=== PATIENT | female | born 1950 | race Caucasian/White ===

== ENCOUNTER → 2016-09-29 | Outpatient (CLI) | payer BC ==
[~2016-09-29] MED LIST: ASCO500T16 PO; CHOL100027 PO; LEVO25TA PO; MAGN250T9 PO; calcium PO
== END | disposition home or self-care (01) ==
LOC: C.PAPS 12:01
PROVIDERS: ATTEND Obstetrics & Gynecology
DX: Z01.419 Encounter for gynecological examination (general) (routine) without abnormal findings (principal)

== ENCOUNTER → 2017-03-16 | Outpatient (CLI) | payer BC ==
--- NOTE | 2017-03-16 12:43 | MAMMOGRAPHY REPORT ---
BILATERAL DIGITAL SCREENING MAMMOGRAM WITH CAD: 03/16/2017 CLINICAL HISTORY: Routine screening. Patient has no complaints. TECHNIQUE: Bilateral CC and MLO views were obtained. Current study was also evaluated with a Compute r Aided Detection (CAD) system. COMPARISON: Comparison is made to exams dated: 03/15/2016 mammogram, 03/11/2015 mammogram, 02/03/2014 main mogram, 01/31/2013 mammogram, 02/03/2012 mammogram, and 01/31/2012 mammogram - [facility]. BREAST COMPOSITION: There are scattered areas of fibroglandular density in both breasts. FINDINGS: No suspicious mass, architectural distortion or cluster of microcalcifications is seen. IMPRESSION: ACR BI-RADS CATEGORY 1: NEGATIVE There is no mammographic evidence of malignancy. A 1 year screening mammogram is recommended. The pa tient will receive written notification of the results. Approximately 10% of breast cancers are not detected with mammography. A negative mammographic report should not delay biopsy if a clinically suggestive mass is present. Beth Cook M.D. ay/:03/16/2017 11:04:21 Podiatry Assistant: Nehal HOLT(R)(M)(BD), [facility] letter sent: Normal 1/2 BI-RADS Code: ACR BI-RADS Category 1: Negative
== END | disposition home or self-care (01) ==
LOC: C.MAMM 10:24
PROVIDERS: ATTEND Family Medicine
DX: Z12.31 Encounter for screening mammogram for malignant neoplasm of breast (principal)

== ENCOUNTER 2019-02-20 02:29 | Observation (INO) ==
[2019-02-20] MEDS ORDERED: MoRPHine SULFATE 4 MG/ML 1 ML CARP\\VIAL IV PRN ×2 (02:48→08:42)
[2019-02-20] MEDS ORDERED: SODIUM CHLORIDE 0.9% 1000ML 500 ML IV ONE (02:48)
[2019-02-20] MEDS ORDERED: ONDANSETRON INJ 2 MG/ML 2 ML VIAL IV STA (02:48)
[2019-02-20 03:14] LABS: Basophils # (auto) 0.03 K/uL (0-0.2); Basophils % (auto) 0.7 %; Eosinophils # (auto) 0.17 K/uL (0-0.5); Eosinophils % (auto) 3.8 %; Hematocrit (blood only) 35.9 % (37-47); Hemoglobin 12.2 g/dL (12.0-16.0); Immature Granulocytes # (auto) 0.02 K/uL (0.00-0.02); Immature Granulocytes % (auto) 0.5 %; Lymphocytes # (auto) 1.67 K/uL (1.2-3.4); Lymphocytes % (auto) 37.6 %; Mean Corpuscular Volume 95.5 fL (80-100); Mean Platelet Volume 9.7 fL (7.4-10.4); Monocytes # (auto) 0.54 K/uL (0.11-0.59); Monocytes % (auto) 12.2 %; Neutrophils # (auto) 2.01 K/uL (1.4-6.5); Neutrophils % (auto) 45.2 %; Platelet Count 192 K/uL (130-400); RDW Coefficient of Variation 14.8 % (11.5-14.5); RDW Standard Deviation 50.5 fL (36.4-46.3); Red Blood Count 3.76 M/uL (4.2-5.4); White Blood Count 4.44 K/uL (4.8-10.8)
[2019-02-20 03:33] LABS: Alanine Aminotransferase 13 U/L (12-78); Albumin Level 3.1 gm/dl (3.4-5.0); Aspartate Aminotransferase 17 U/L (15-37); BUN Creatinine Ratio 18.3 (10-20); Blood Urea Nitrogen 16 mg/dl (7-18); Carbon Dioxide 21 mmol/L (21-32); Chloride 110 mmol/L (98-107); Creatinine Clr Calc Pharmacy 37.7 ml/min; Est GFR (African American) 79.4; Est GFR (Non-African American) 68.5; Glucose 93 mg/dl (70-99); Magnesium 2.3 mg/dl (1.8-2.4); Partial Thromboplastin Time 27.2 Seconds (21.0-31.0); Potassium 3.4 mmol/L (3.5-5.1); Prothrombin Time 10.3 Seconds (9.0-12.0); Sodium 142 mmol/L (136-145)
[2019-02-20 03:38] LABS: Albumin Globulin Ratio 0.9 (0.9-2); Alkaline Phosphatase 74 U/L (45-117); Bilirubin,Total 0.5 mg/dl (0.2-1); Globulin 3.6 gm/dl (2.5-4.0); Total Protein 6.7 gm/dl (6.4-8.2); Troponin I < 0.015 ng/ml (0-0.045)
[2019-02-20] MEDS ORDERED: IOVERSOL 100ml IV PRN (04:01)
--- NOTE | 2019-02-20 06:29 | Emergency Department Note ---
History of Present Illness General Chief complaint: Abdominal Pain Stated complaint: ABD PAIN, CANCER Time Seen by Provider: 02/20/19 02:37 History of Present Illness Maximum Pain Intensity: 5 This is a 68-year-old female presenting to the emergency department for evaluation of vague abdominal pain that began about 1 hour prior to arrival. Patient has an extensive history of stage IV metastatic colon cancer. She last received chemotherapy 7 days ago, and has not had recent reaction, fevers, or chills. The patient has had chronic constipation in the past, and typically uses a stool softener. The patient feels like she has been using the bathroom as normal the past 2 days, but became concerned due to the severity of her abdominal discomfort. Most of the discomfort is in the upper abdomen. She is nauseated without vomiting. No reports of chest pain, chest tightness, or rhea rtness of breath. She rates her current discomfort with 5/10. Home Medications Home Medications Medication Instructions Recorded Confirmed Type ascorbic acid (vitamin C) 500 mg PO QDL 04/23/18 02/20/19 History cholecalciferol (vitamin D3) 1,000 unit PO QDL 04/23/18 02/20/19 History [Vitamin D3] levothyroxine 25 mcg PO QAM 04/23/18 02/20/19 History magnesium 250 mg PO BIDM 04/23/18 02/20/19 History tramadol 50 mg PO BID 04/23/18 02/20/19 History ondansetron HCl [Zofran] 8 mg PO BID PRN 05/20/18 02/20/19 History Avastin 1 dose IV . Q2 WEEKS 02/20/19 02/20/19 History calcium carbonate [Calcium 600] 600 mg PO BID 02/20/19 02/20/19 History fluorouracil 1 dose IV . Q 2 WEEKS 02/20/19 02/20/19 History leucovorin calcium 1 dose IV . Q2 WEEKS 02/20/19 02/20/19 History Allergies Allergy/AdvReac Type Severity Reaction Status Date / Time aspirin AdvReac Mild COUGHING Verified 02/20/19 06:14 WITH ASTHMA alendronate sodium AdvReac FLU LIKE Verified 02/20/19 06:14 SYMPTOMS Antifungal - Imidazole AdvReac SWELLING Verified 02/20/19 06:14 Sulfa (Sulfonamide AdvReac NAUSEA Verified 02/20/19 06:14 Antibiotics) Past Med/Surg History Medical History Colon cancer RECTOSIGMOID COLON Ureterolithiasis (Inactive) To [facility] ED 04/22 with flank pain Asthma Cancer COLON CANCER METS TO LUNG/LIVER Hx of renal calculi Hypothyroid MVP (mitral valve prolapse) MINOR Osteoporosis Pes cavus RT/LEFT FOOT Surgical History H/O colonoscopy History of tooth extraction Social History Preferred Language: Turkmen Communication Ability: Effective Visual Impairment: No Limitations Hearing Ability: Normal Box Stacker Required: No Beliefs That Will Affect Care: None Current Living Situation: Spouse Feels Safe at Home: Yes Smoking Status: Never smoker Second Hand Exposure: Yes ( A CHILD) ; Hx Alcohol Use: No Hx Substance Use: No Review of Systems A total of 10 systems reviewed and were otherwise negative Physical Exam Vital Signs Vital Signs - 24 hr 02/20/19 02:35 02/20/19 03:42 02/20/19 04:30 Temperature 36.4 C L Temperature Source Oral Sepsis Recent Fever Within 48 Hours No Sepsis New/Unexplained Change in Mental Status No Sepsis Action Taken by Nursing No Action Required Pulse Rate 102 H 68 Pulse Rate [Right Finger] 70 Pulse Rate from SpO2 Sensor 68 Respiratory Rate 18 18 19 Blood Pressure 121/82 Blood Pressure [Left Arm] 123/54 L Blood Pressure Mean 95 Blood Pressure Mean [Left Arm] 77 Pulse Oximetry 99 100 100 Oxygen Delivery Method Room Air Room Air 02/20/19 04:46 02/20/19 05:00 02/20/19 05:30 Temperature Temperature Source Sepsis Recent Fever Within 48 Hours Sepsis New/Unexplained Change in Mental Status Sepsis Action Taken by Nursing Pulse Rate 74 78 82 Pulse Rate [Right Finger] Pulse Rate from SpO2 Sensor 72 76 83 Respiratory Rate 19 20 20 Blood Pressure 146/63 H 121/61 Blood Pressure [Left Arm] Blood Pressure Mean 90 81 Blood Pressure Mean [Left Arm] Pulse Oximetry 100 99 100 Oxygen Delivery Method Room Air Room Air Room Air 02/20/19 06:00 Temperature Temperature Source Sepsis Recent Fever Within 48 Hours Sepsis New/Unexplained Change in Mental Status Sepsis Action Taken by Nursing Pulse Rate 85 Pulse Rate [Right Finger] Pulse Rate from SpO2 Sensor 85 Respiratory Rate 21 Blood Pressure 128/71 Blood Pressure [Left Arm] Blood Pressure Mean 90 Blood Pressure Mean [Left Arm] Pulse Oximetry 100 Oxygen Delivery Method VITALS: Vitals are noted on the nurse's note and reviewed by myself. Vital signs stable. GENERAL: Chronically ill-appearing female who is comfortable and cooperative. She is overall very pleasant. HEAD: Normocephalic atraumatic. MOUTH: Mucous membranes moist. Tonsils are not enlarged. Pharynx without erythema, blood, or exudate. Uvula midline. Airway patent. NECK: Supple without nuchal rigidity. No lymphadenopathy. No thyromegaly. Cervical spine is nontender. HEART: Regular rate and rhythm without murmurs gallops or rubs. LUNGS: Clear to auscultation bilaterally without wheezes, rales or rhonchi. No retractions or accessory muscle use. ABDOMEN: Positive normal bowel sounds x 4. Soft, nontender, without masses or organomegaly. No guarding or rebound tenderness. MUSCULOSKELETAL: No muscle atrophy, erythema, or edema noted. Full range of motion in all extremities. Course Administered Medications Ioversol (Optiray 320 100ml) 100 ml IV ONCE PRN PRN Reason: Interaction Checking Stop: 02/24/19 04:00 Last Admin: 02/20/19 04:04 Dose: 93 ml Documented by: [id number] Morphine Sulfate (Morphine Sulfate) 4 mg IV Q15M PRN PRN Reason: Pain Stop: 03/06/19 02:47 Last Admin: 02/20/19 03:18 Dose: 4 mg Documented by: [id number] Discontinued Medications Sodium Chloride (Nss 1000ml) 500 mls @ 999 mls/hr IV .Q31M ONE Stop: 02/20/19 03:18 Last Infusion: 02/20/19 03:48 Dose: 0 mls/hr Documented by: [id number] Admin: 02/20/19 03:17 Dose: 999 mls/hr Documented by: [id number] Ondansetron HCl (Zofran) 4 mg IV NOW STA Stop: 02/20/19 02:49 Last Admin: 02/20/19 03:17 Dose: 4 mg Documented by: [id number] Medical Decision Making Differential Diagnosis Differential diagnosis: Etiologies such as biliary colic, cholecystitis, hepatitis, pancreatitis, cardiac disease, pancreatitis, gastritis, peptic ulcer disease, appendicitis, cystitis, diverticulitis, mesenteric ischemia, inflammatory bowel disease, ileus, bowel obstruction, testicular/adnexal torsion, aortic pathology, shingles, as well as others were considered Laboratory Data Result diagrams: 02/20/19 03:06 02/20/19 03:06 Lab Results 02/20/19 02/20/19 02/20/19 Range/Units 03:06 03:06 03:06 WBC 4.44 L (4.8-10.8) K/uL RBC 3.76 L (4.2-5.4) M/uL Hgb 12.2 (12.0-16.0) g/dL Hct 35.9 L (37-47) % MCV 95.5 (80-100) fL MCH 32.4 (25-34) pg MCHC 34.0 (32-36) g/dL RDW Std Deviation 50.5 H (36.4-46.3) fL RDW Coeff of Michele 14.8 H (11.5-14.5) % Plt Count 192 (130-400) K/uL MPV 9.7 (7.4-10.4) fL Immature Gran % (Auto) 0.5 % Neut % (Auto) 45.2 % Lymph % (Auto) 37.6 % [place] % (Auto) 12.2 % Eos % (Auto) 3.8 % Baso % (Auto) 0.7 % Immature Gran # (Auto) 0.02 (0.00-0.02) K/uL Neut # (Auto) 2.01 (1.4-6.5) K/uL Lymph # (Auto) 1.67 (1.2-3.4) K/uL [place] # (Auto) 0.54 (0.11-0.59) K/uL Eos # (Auto) 0.17 (0-0.5) K/uL Baso # (Auto) 0.03 (0-0.2) K/uL PT 10.3 (9.0-12.0) Seconds INR 1.0 (0.9-1.1) APTT 27.2 (21.0-31.0) Seconds PTT Ratio 1.0 Sodium 142 (136-145) mmol/L Potassium 3.4 L (3.5-5.1) mmol/L Chloride 110 H (98-107) mmol/L Carbon Dioxide 21 (21-32) mmol/L Anion Gap 11.0 (3-11) BUN 16 (7-18) mg/dl Creatinine 0.88 (0.6-1.2) mg/dl Est Cr Clr Drug Dosing 37.7 ml/min Est GFR ( Amer) 79.4 Est GFR (Non-Af Amer) 68.5 BUN/Creatinine Ratio 18.3 (10-20) Glucose 93 (70-99) mg/dl Calcium 9.0 (8.5-10.1) mg/dl Magnesium 2.3 (1.8-2.4) mg/dl Total Bilirubin 0.5 (0.2-1) mg/dl AST 17 (15-37) U/L ALT 13 (12-78) U/L Alkaline Phosphatase 74 (45-117) U/L Troponin I < 0.015 (0-0.045) ng/ml Total Protein 6.7 (6.4-8.2) gm/dl Albumin 3.1 L (3.4-5.0) gm/dl Globulin 3.6 (2.5-4.0) gm/dl Albumin/Globulin Ratio 0.9 (0.9-2) Lipase 202 (73-393) U/L Imaging Data Radiologist's Impression: Preliminary Findings Only See Final Report For Complete Findings CT ABDOMEN & PELVIS With Contrast: Comparison: CT abdomen and pelvis 08/23/18 At least 10 new hypodense liver lesions, consistent with metastatic disease, measuring up to 1.7 cm. Stent in distal sigmoid colon, similar to prior. Stable 6 mm nodule in right lower lobe. New nearby micronodules in right lung base anteriorly. Scarring/atelectasis at lung bases. Mild periaortic lymphadenopathy is stable to slightly decreased in size from prior. Small pericardial effusion. Subcentimeter right renal cyst, stable from prior. MDM Narrative Physical exam and history were performed. Nursing notes, EMR, and Medication List were personally reviewed. Patient appears to have abdominal pain context of having stage IV metastatic colon cancer. On exam she appears chronically ill but does not have distinct reproducible tenderness. IV access was established and labs were obtained. I did elect to perform CT scan of her belly because of her symptoms. The patient was hydrated with normal saline and given IV morphine and IV Zofran. EKG was performed and showed atrial fibrillation at [address] elevation. I did review each of her EKGs that we have here in the department, roughly over the past 6 or 7 years, and I do not appreciate a previous EKG showing A. fib. The patient's blood work is as above and was reviewed she does not have a significantly elevated white blood cell count or gross anemia. No significant electrolyte imbalance is identified. Troponin x1 is negative. Lipase and transaminases are not diagnostic. CT scan does not show acute process per my and radiology interpretation. She appears to have worsening liver metastasis. On reevaluation the patient continues to appear much more comfortable. Her abdomen remains soft and not significantly tender. I did discuss the case with my attending physician, Dr. Roberts, and overall review of concern for the patient. She is experiencing vague abdominal discomfort, and appears to have new onset A. fib. Medically she will be difficult to manage due to her underlying cancer and chemotherapy. Due to the complexity of the patient's case, she was discussed with the on-call hospitalist, who agreed to evaluate her here in the department. Please see the hospitalist dictation for further patient course, plan, and disposition. The chart was completed utilizing [employer] Speech Voice Recognition Software. Grammatical errors, random word insertions, pronoun errors, and incomplete sentences are an occasional consequence of this system due to software limitations, ambient noise, and hardware issues. Any formal questions or concerns about the content, text, or information contained within the body of this dictation should be directly addressed to the provider for clarification. . Impression & Plan New onset a-fib, Abdominal pain Discharge Plan Visit Data Chief Complaint: Abdominal Pain Stated Complaint: ABD PAIN, CANCER ED Provider: Evelyne Roberts ED Midlevel Provider: Mauro Solorzano Discharge Problem: New onset a-fib, Abdominal pain Forms Stand Alone Forms: Call Back Authorization, My [facility] [employer] Prescriptions Prescriptions: No Action cholecalciferol (vitamin D3) [Vitamin D3] 1,000 unit Tablet 1,000 unit PO QDL RF: 0 ascorbic acid (vitamin C) 500 mg Capsule 500 mg PO QDL RF: 0 magnesium 250 mg Tablet 250 mg PO BIDM RF: 0 levothyroxine 25 mcg Capsule 25 mcg PO QAM RF: 0 tramadol 50 mg Tablet 50 mg PO BID RF: 0 calcium carbonate [Calcium 600] 600 mg calcium (1,500 mg) Tablet 600 mg PO BID RF: 0 Avastin 1 dose IV . Q2 WEEKS RF: 0 fluorouracil 1 dose IV . Q 2 WEEKS RF: 0 leucovorin calcium 1 dose IV . Q2 WEEKS RF: 0 ondansetron HCl [Zofran] 8 mg tablet 8 mg PO BID PRN (Reason: Nausea And Vomiting) RF: 0 Referrals Referrals: Weston Still MD [Primary Care Provider] - Discharge Problem: Abdominal pain Qualifiers: Abdominal location: epigastric Qualified Code(s): R10.13 - Epigastric pain
[2019-02-20 06:53] LABS: Appearance Urine Clear (Clear); Bilirubin Urine Negative (Negative); Blood Urine Negative (Negative); Color Urine Yellow; Glucose Urine UA Negative (Negative); Ketones Urine Negative (Negative); Leukocyte Esterase Urine Negative (Negative); Nitrite Urine Negative (Negative); Protein Urine Negative (Negative); Specific Gravity Urine > 1.045 (1.000-1.030); Urobilinogen Urine Negative (Negative); pH Urine >= 9.0 (4.5-7.5)
--- NOTE | 2019-02-20 07:06 | History and Physical Report ---
DATE OF ADMISSION: 02/20/2019 CHIEF COMPLAINT: Abdominal pain. HISTORY OF PRESENT ILLNESS: This is a 68-year-old female with past medical history significant for metastatic colon cancer, metastases to lungs and liver, on chemo, severe protein-calorie malnutrition, hypothyroidism, osteoporosis, history of PVCs, diastolic dysfunction, presents with abdominal pain. The patient woke up with abdominal pain, mild to moderate in severity, no radiation, it is in the upper part of the abdomen, got worried and came to the ER and got pain medication. Currently, pain is resolved. EKG showed AFib, which was new onset, rate is under control. The patient denies any nausea, vomiting. No diarrhea or constipation. Moved bowels yesterday. No blood in the stools or black stools. No burning micturition, no hematuria. No swelling in the legs. No rash. No chest pain, no shortness of breath, no cough, no fever, no chills, no headache, no blurred vision, no dizziness, no earache, no runny nose, no sore throat. Appetite is okay. Currently, resting comfortably and hemodynamically stable. ALLERGIES: ALENDRONATE, ASPIRIN, IMIDAZOLE, METRONIDAZOLE, SULFA ANTIBIOTICS. PAST MEDICAL HISTORY: As mentioned above. PAST SURGICAL HISTORY: Colonoscopy, cystoscopy, A-port insertion. MEDICATIONS: Currently, the patient is on levothyroxine 25 mcg daily, tramadol 50 mg p.o. t.i.d. p.r.n., Zofran 8 mg p.o. q. 8 hours p.r.n., vitamin D 1000 units p.o. daily, magnesium 250 mg b.i.d., vitamin C tablets daily, calcium 1 tablet daily. FAMILY HISTORY: Significant for: Father had stroke, hypertension, heart disorder. Sister has diabetes, hypertension and depression. SOCIAL HISTORY: . No smoking, no alcohol, no drug use. REVIEW OF SYMPTOMS: As per HPI. Rest of review of systems is negative. PHYSICAL EXAMINATION: GENERAL: The patient is thin and frail, not in acute distress. VITAL SIGNS: Temperature 36.4, pulse 85, respiratory rate 21, blood pressure 120/71, oxygen 100% on room air. HEENT: No pallor, no icterus. Pupils equal, round, and reactive to light. NECK: No JVD, no neck masses, no carotid bruits. CARDIOVASCULAR: S1, S2 heard, regular rate and rhythm. No murmur, no gallop. RESPIRATORY SYSTEM: Normal AP diameter. No accessory muscle use. No wheezing, no crackles. ABDOMEN: Soft, bowel sounds present, nontender. No distention. CENTRAL NERVOUS SYSTEM: Cranial nerves II-XII grossly nonfocal. EXTREMITIES: No edema, no erythema. LABORATORY DATA: WBC 4.4, hemoglobin 12.2, hematocrit 35.9, platelets 192. PT 10.9, INR 1, APTT 27.2. Sodium 142, potassium 3.4, chloride 110, bicarbonate 21, BUN 16, creatinine 0.8, serum glucose 93, calcium 9, magnesium 2.3, total bilirubin 0.5, AST 17, ALT 13, alkaline phosphatase 74, troponin I less than 0.015. Lipase 202. EKG shows AFib, rate of 18, no acute ST changes seen. CT of the abdomen and pelvis, unofficial report, progressing lung cancer. ASSESSMENT AND PLAN: This is a 68-year-old female who presents with abdominal pain. 1. Abdominal pain. Currently, pain resolved with the pain medication. The patient's CAT scan unofficial report showed progression of colon cancer. We will wait for the official report. Getting chemo as per hematology/oncology. Consult hematology/oncology. 2. Atrial fibrillation, new onset. rate under control. Currently asymptomatic. We will monitor on telemetry floor. Serial cardiac enzymes, echocardiogram. We will place on low-dose IV heparin and consult cardiology for anticoagulation recommendations. 3. Colon cancer, metastatic to liver and lungs. Management as per hematology/oncology. Follow with hematology/oncology. 4. Hypothyroidism. Continue Synthroid. 5. Severe protein-calorie malnutrition. Nutrition consult. 6. Hypokalemia. We will replace. 7. Deep vein thrombosis prophylaxis, starting on IV heparin. DISPOSITION: Admit to tele floor. Expect to discharge home and follow with family doctor. Level 1 full code. MTDD
--- NOTE | 2019-02-20 07:40 | CT Scan Report ---
CT abd pelvis IV con only CT DOSE: 240.66 mGy.cm HISTORY: Pain pain. Metastatic colon carcinoma. TECHNIQUE: Multiaxial CT images of the abdomen and pelvis were performed following the use of intrave nous contrast. A dose lowering technique was utilized adhering to the principles of ALARA. COMPARISON STUDY: 12/22/2018 FINDINGS: Chronic bibasilar interstitial/fibrotic changes both lung bases. Unchanging small nodular d ensity right lateral costophrenic angle. No new basilar interval findings. Hepatic metastatic disease is perhaps slightly progressive in terms of overall number and size of dep osits. Pancreas appears unremarkable. No evidence for gallbladder distention. Adenopathy previously described within the abdomen and pelvis is considered nonprogressive. A rectosi gmoid stent is again noted. There appears to be soft tissue nearly occluding the inferior aspect of t he 10th versus fecal material. Bladder is midline. Bowel pattern again is nonobstructive. Kidneys enh ance uniformly. IMPRESSION: 1. No major change compared to the prior study. 2. Probable hepatic metastatic disease stable to slightly increased in prominence. 3. Stable location of a rectosigmoid stent with fecal material and/or soft tissue at its inferior asp ect. This is unchanged. 4. Nonobstructive bowel pattern. The above report was generated using voice recognition software. It may contain grammatical, syntax or spelling errors. Electronically signed by: Weston Carvajal M.D. 02/20/2019 7:38 AM
[2019-02-20] MEDS ORDERED: POTASSIUM CHLORIDE 10 MEQ TABCR PO STA (08:41)
[2019-02-20] MEDS ORDERED: ONDANSETRON INJ 2 MG/ML 2 ML VIAL IV PRN (08:42)
[2019-02-20] MEDS ORDERED: MAGNESIUM OXIDE 400 MG TAB PO SCH (08:42)
[2019-02-20] MEDS ORDERED: HEPARIN SODIUM/DEXTROSE 25,000 UNITS/500 ML BAG IV SCH (08:42)
[2019-02-20] MEDS ORDERED: NITROGLYCERIN SL 0.4 MG/TAB TAB SL PRN (08:42)
[2019-02-20] MEDS ORDERED: SODIUM CHLORIDE 0.9% 1000ML 1,000 ML IV SCH (08:42)
[2019-02-20] MEDS ORDERED: POLYETHYLENE (MIRALAX) 17 GM PACK PO PRN (08:42)
[2019-02-20] MEDS ORDERED: ONDANSETRON 8 MG TABLET PO PRN (08:42)
[2019-02-20] MEDS ORDERED: ACETAMINOPHEN 325 MG TAB PO PRN (08:42)
[2019-02-20] MEDS ORDERED: TRAMADOL HCL 50 MG TABLET PO SCH (09:00)
[2019-02-20] MEDS: Heparin IV Low Dose *NO* Bolus IV SCH ×2 (09:47→09:48)
[2019-02-20] MEDS ORDERED: ASCORBIC ACID 500 MG TAB PO SCH (11:30)
--- NOTE | 2019-02-20 14:02 | Hospitalist Progress Note ---
Date of Service February 20, 2019 Assessment & Plan (1) Abdominal pain: Patient is a 68 yr female who presents with abdominal pain Abdominal Pain: Unclear etiology. Likely due to metastasis --CT ABD:No major change compared to the prior study.Probable hepatic metastatic disease stable to slightly increased in prominence. Stable location of a rectosigmoid stent with fecal material and/or soft tissue at its inferior aspect. This is unchanged. Nonobstructive bowel pattern --Abdominal pain resolved Denies any nausea, vomiting, constipation or diarrhea Eager to get discharged Premature atrial contractions Troponin X 2: Negative IV Heparin discontinued Asymptomatic Discussed with Cardiology Monitor electrolytes and replace as needed ECHO: Trivial Pericardial effusion. EF: 55-60% Hypokalemia: Likely due to poor oral intake Replace and monitor Colon cancer, metastatic to liver and lungs CT abd reviewed Currently On chemotherapy Follows with as outpatient Hypothyroidism Continue Levothyroxine Severe protein-calorie malnutrition Nutrition consult BMI:14.8 DVT Px: On heparin. Code Status Full Code DISPOSITION: Plan to discharge home today Subjective Patient is seen and examined at bedside States abdominal pain has resolved Denies any chest pain, shortness of breath, nausea, dizziness, constipation/diarrhea Family at bedside Offers no other complaints Has regular BMs Eager to get discharged Review of Systems Review of Systems: All systems reviewed & are unremarkable except as noted in HPI & below Physical Exam Physical Exam: Physical Exam: Vitals signs as noted above General Appearance:Thin, Frail, no apparent distress Head: normocephalic, Atraumatic Eyes: normal inspection, EOMI Neck: supple, Trachea midline Respiratory/Chest: Normal breath sounds, CTA Cardiovascular: S1, S2, No murmur Abdomen/GI:Soft, Non tender, Bowel sounds present Extremities/Musculoskelatal:normal inspection, no edema Neurologic/Psych:AAOX3, grossly no focal neurological deficits Skin: normal color, warm Results & Data Vital Signs (Past 12 Hours) Vital Signs Temp Pulse Pulse Resp BP BP Pulse Ox 02/20/19 11:08 36.6 C 82 18 139/83 99 02/20/19 08:42 02/20/19 08:23 36.5 C 85 16 148/62 H 96 02/20/19 07:57 100 H 20 156/61 H 02/20/19 06:42 85 24 141/65 H 98 02/20/19 06:30 83 21 98 02/20/19 06:00 85 21 128/71 100 02/20/19 05:30 82 20 100 02/20/19 05:00 78 20 121/61 99 02/20/19 04:46 74 19 146/63 H 100 02/20/19 04:30 68 19 100 02/20/19 03:42 70 18 123/54 L 100 02/20/19 02:35 36.4 C L 102 H 18 121/82 99 Pulse Ox 02/20/19 11:08 02/20/19 08:42 96 02/20/19 08:23 02/20/19 07:57 02/20/19 06:42 02/20/19 06:30 02/20/19 06:00 02/20/19 05:30 02/20/19 05:00 02/20/19 04:46 02/20/19 04:30 02/20/19 03:42 02/20/19 02:35 Laboratory Results Short CBC 02/20/19 Range/Units 03:06 WBC 4.44 L (4.8-10.8) K/uL Hgb 12.2 (12.0-16.0) g/dL Hct 35.9 L (37-47) % Plt Count 192 (130-400) K/uL BMP 02/20/19 03:06 Sodium 142 Potassium 3.4 L Chloride 110 H Carbon Dioxide 21 BUN 16 Creatinine 0.88 Glucose 93 Calcium 9.0 Cardiac Enzymes 02/20/19 02/20/19 Range/Units 03:06 08:50 Troponin I < 0.015 < 0.015 (0-0.045) ng/ml Liver Function 02/20/19 Range/Units 03:06 Total Bilirubin 0.5 (0.2-1) mg/dl AST 17 (15-37) U/L ALT 13 (12-78) U/L Alkaline Phosphatase 74 (45-117) U/L Albumin 3.1 L (3.4-5.0) gm/dl Urine 02/20/19 Range/Units 06:40 Urine Color Yellow Urine Appearance Clear (Clear) Urine pH >= 9.0 H (4.5-7.5) Ur Specific [place] > 1.045 H (1.000-1.030) Urine Protein Negative (Negative) Urine Glucose (UA) Negative (Negative) (1) Abdominal pain Abdominal location: epigastric Qualified Code(s): R10.13 - Epigastric pain
--- NOTE | 2019-02-20 14:06 | Discharge Summary ---
Date of Service February 20, 2019 Admission HPI Per Admitting Provider CHIEF COMPLAINT: Abdominal pain. HISTORY OF PRESENT ILLNESS: This is a 68-year-old female with past medical history significant for metastatic colon cancer, metastases to lungs and liver, on chemo, severe protein-calorie malnutrition, hypothyroidism, osteoporosis, history of PVCs, diastolic dysfunction, presents with abdominal pain. The patient woke up with abdominal pain, mild to moderate in severity, no radiation, it is in the upper part of the abdomen, got worried and came to the ER and got pain medication. Currently, pain is resolved. EKG showed AFib, which was new onset, rate is under control. The patient denies any nausea, vomiting. No diarrhea or constipation. Moved bowels yesterday. No blood in the stools or black stools. No burning micturition, no hematuria. No swelling in the legs. No rash. No chest pain, no shortness of breath, no cough, no fever, no chills, no headache, no blurred vision, no dizziness, no earache, no runny nose, no sore throat. Appetite is okay. Currently, resting comfortably and hemodynamically stable. Admission Exam Per Admitting Provider PHYSICAL EXAMINATION: GENERAL: The patient is thin and frail, not in acute distress. VITAL SIGNS: Temperature 36.4, pulse 85, respiratory rate 21, blood pressure 120/71, oxygen 100% on room air. HEENT: No pallor, no icterus. Pupils equal, round, and reactive to light. NECK: No JVD, no neck masses, no carotid bruits. CARDIOVASCULAR: S1, S2 heard, regular rate and rhythm. No murmur, no gallop. RESPIRATORY SYSTEM: Normal AP diameter. No accessory muscle use. No wheezing, no crackles. ABDOMEN: Soft, bowel sounds present, nontender. No distention. CENTRAL NERVOUS SYSTEM: Cranial nerves II-XII grossly nonfocal. EXTREMITIES: No edema, no erythema. Principal Diagnosis Discharge Information Discharge Diagnosis Abdominal pain Premature atrial contractions Hypokalemia Discharge Goals Decrease discomfort,Improve disease control, Improve function Discharge Activity Limitations Resume your previous activity Discharge Data Allergies Allergy/AdvReac Type Severity Reaction Status Date / Time aspirin AdvReac Mild COUGHING Verified 02/20/19 06:14 WITH ASTHMA alendronate sodium AdvReac FLU LIKE Verified 02/20/19 06:14 SYMPTOMS Antifungal - Imidazole AdvReac SWELLING Verified 02/20/19 06:14 Sulfa (Sulfonamide AdvReac NAUSEA Verified 02/20/19 06:14 Antibiotics) Consultations 02/20/19 05:46 ED Decision to Admit Stat 02/20/19 08:42 Consult Case Management - Discharge Planning Routine Procedures Performed CT ABD: 1. No major change compared to the prior study. 2. Probable hepatic metastatic disease stable to slightly increased in prominence. 3. Stable location of a rectosigmoid stent with fecal material and/or soft tissue at its inferior aspect. This is unchanged. 4. Nonobstructive bowel pattern. Ordered Studies 02/20/19 02:48 CT abd pelvis IV con only Urgent Hospital Course (1) Abdominal pain: Patient is a 68 yr female who presents with abdominal pain Abdominal Pain: Unclear etiology. Likely due to metastasis --CT ABD:No major change compared to the prior study.Probable hepatic metastatic disease stable to slightly increased in prominence. Stable location of a rectosigmoid stent with fecal material and/or soft tissue at its inferior aspect. This is unchanged. Nonobstructive bowel pattern --Abdominal pain resolved Denies any nausea, vomiting, constipation or diarrhea Eager to get discharged Premature atrial contractions Troponin X 2: Negative IV Heparin discontinued Asymptomatic Discussed with Cardiology Monitor electrolytes and replace as needed ECHO: Trivial Pericardial effusion. EF: 55-60% Hypokalemia: Likely due to poor oral intake Replace and monitor Colon cancer, metastatic to liver and lungs CT abd reviewed Currently On chemotherapy Follows with as outpatient Hypothyroidism Continue Levothyroxine Severe protein-calorie malnutrition Nutrition consult BMI:14.8 DVT Px: On heparin. Code Status Full Code DISPOSITION: Plan to discharge home today Total Time Total Time Spent Total Time Spent (In Minutes): 28 minutes Total Time Includes: Examination of the Patient, Discharge Planning, Medication Reconciliation, Communication With Other Providers and Other Discharge Plan Discharge Items Patient Disposition: Home - Self-Care Reason For Visit: ABD PAIN Discharge Diagnosis: Abdominal pain Premature atrial contractions Hypokalemia Discharge Goals: Decrease discomfort, Improve disease control and Improve fun ction Activity: Resume your previous activity Exercise/Sports: Gradually increase as tolerated Non-emergency contact: Primary Care Provider and Oncologist Call non-emergency contact if: you have any medication questions, your symptoms worsen, your pain is not controlled, your pain is worsening, your pain is unusual for you, your pain is concerning for you and you have a fever Follow-up/Referrals: Weston Still MD [Primary Care Provider] - Diet: Regular Addtl Provider Instructions: Follow-up with your primary care physician Dr. Still/ Stella Cronin PA-C on Feb 25, 2019 at 12:45pm Follow up with your Oncologist as scheduled Seek immediate medical attention if your symptoms reoccur or worsen Prescriptions: Continued cholecalciferol (vitamin D3) [Vitamin D3] 1,000 unit Tablet 1,000 unit PO QDL RF: 0 ascorbic acid (vitamin C) 500 mg Capsule 500 mg PO QDL RF: 0 magnesium 250 mg Tablet 250 mg PO BIDM RF: 0 levothyroxine 25 mcg Capsule 25 mcg PO QAM RF: 0 tramadol 50 mg Tablet 50 mg PO BID RF: 0 calcium carbonate [Calcium 600] 600 mg calcium (1,500 mg) Tablet 600 mg PO BID RF: 0 Avastin 1 dose IV . Q2 WEEKS RF: 0 fluorouracil 1 dose IV . Q 2 WEEKS RF: 0 leucovorin calcium 1 dose IV . Q2 WEEKS RF: 0 ondansetron HCl [Zofran] 8 mg tablet 8 mg PO BID PRN (Reason: Nausea And Vomiting) RF: 0 Stand-Alone Forms: Call Back Authorization, [facility] Discharge Orders: Discharge Order (Routine); Ordered 02/20/19 Ordered By: Fernando Nicolas Admission Data Admit Date/Time: 02/20/19 06:34 Attending Provider: Fernando Nicolas Admit Provider: Leandro Gaston Primary Care Provider: Weston Still Other Providers: Leandro Gaston Service: Telemetry Other Interventions: Discharge Summary Assessment (RN) Last Done: 02/20/19 14:13 Pending Studies at Discharge: No DC Date/Time DO NOT enter until pt leaves facility: 02/20/19 14:41
[2019-02-21] MEDS ORDERED: LEVOTHYROXINE SODIUM 25 MCG TABLET PO SCH (06:30)
== END 2019-02-20 14:41 | disposition home or self-care (01) ==
LOC: 2S 02:29 → ED 02:29 → 2S 07:57

== ENCOUNTER 2019-08-30 15:52 | Inpatient (IN) ==
[2019-08-30] MEDS ORDERED: SODIUM CHLORIDE 0.9% 1000ML 1,000 ML IV ONE (16:45)
[2019-08-30] MEDS ORDERED: ONDANSETRON INJ 2 MG/ML 2 ML VIAL IV STA ×2 (16:46→17:39)
[2019-08-30] MEDS ORDERED: MoRPHine SULFATE 4 MG/ML 1 ML CARP\\VIAL IV STA ×2 (16:48→18:26)
[2019-08-30 17:17] LABS: Hematocrit (blood only) 33.9 % (37-47); Hemoglobin 11.2 g/dL (12.0-16.0); Mean Corpuscular Hemoglobin 30.2 pg (25-34); Mean Corpuscular Volume 91.4 fL (80-100); Mean Platelet Volume 9.4 fL (7.4-10.4); Platelet Count 293 K/uL (130-400); RDW Standard Deviation 45.4 fL (36.4-46.3); Red Blood Count 3.71 M/uL (4.2-5.4); White Blood Count 6.25 K/uL (4.8-10.8)
[2019-08-30 17:29] LABS: Partial Thromboplastin Time 27.5 Seconds (21.0-31.0); Prothrombin Time 10.7 Seconds (9.0-12.0)
[2019-08-30 17:35] LABS: Albumin Level 2.8 gm/dl (3.4-5.0); BUN Creatinine Ratio 22.3 (10-20); Calcium 8.6 mg/dl (8.5-10.1); Creatinine Clr Calc Pharmacy 37.6 ml/min; Est GFR (African American) 77.7; Est GFR (Non-African American) 67.1; Magnesium 2.2 mg/dl (1.8-2.4); Potassium 3.4 mmol/L (3.5-5.1)
[2019-08-30 17:36] LABS: Influenza A virus by PCR Neg for Influ A (Neg); Influenza B virus by PCR Neg for Influ B (Neg)
[2019-08-30 17:37] LABS: Bilirubin Direct 0.2 mg/dl (0-0.2); Bilirubin,Total 0.7 mg/dl (0.2-1); Immature Granulocytes # (auto) 0.02 K/uL (0.00-0.02); Immature Granulocytes % (auto) 0.3 %; Lymphocytes # (auto) 0.22 K/uL (1.2-3.4); Lymphocytes % (auto) 3.5 %; Monocytes # (auto) 0.15 K/uL (0.11-0.59); Monocytes % (auto) 2.4 %; Neutrophils # (auto) 5.86 K/uL (1.4-6.5); Neutrophils % (auto) 93.8 %; Total Protein 6.7 gm/dl (6.4-8.2)
--- NOTE | 2019-08-30 18:27 | XRay Report ---
XR chest 1V portable HISTORY: Vomiting. COMPARISON: Chest 05/20/2018. FINDINGS: No pneumothorax. No pleural effusions. Calcified right paratracheal lymph nodes are again n oted. The heart is normal in size. No focal lung consolidations to suggest pneumonia. No evidence for pulmonary edema. Right subclavian Port-A-Cath terminates at the SVC. IMPRESSION: No significant change compared to the prior study. No acute process. ACT 112: Negative or not required by law. Electronically signed by: Schuyler Conrad M.D. 08/30/2019 6:26 PM
[2019-08-30] MEDS ORDERED: IOVERSOL 100ml IV PRN (18:29)
[2019-08-30 18:37] LABS: Appearance Urine Clear (Clear); Bacteria Urine Automated Negative (Negative); Bilirubin Urine Negative (Negative); Blood Urine Trace (Negative); Color Urine Yellow; Glucose Urine UA Negative (Negative); Ketones Urine Negative (Negative); Leukocyte Esterase Urine Negative (Negative); Nitrite Urine Negative (Negative); Protein Urine Negative (Negative); RBC Urine Automated 0-4 /hpf (0-4); Specific Gravity Urine 1.014 (1.000-1.030); Urobilinogen Urine Negative (Negative); pH Urine 6.5 (4.5-7.5)
[2019-08-30] MEDS: SODIUM CHLORIDE 0.9% 500 ML IV SCH ×2 (18:42→22:41)
--- NOTE | 2019-08-30 18:59 | CT Scan Report ---
ABDOMEN AND PELVIS CT WITH IV CONTRAST CT DOSE: 252.32 mGy.cm HISTORY: Acute vomiting with lower abdominal pain. History of colon cancer vomitting hx colon ca TECHNIQUE: Multiaxial CT images of the abdomen and pelvis were performed following the IV administrat ion of 94 cc of Optiray 320, A dose lowering technique was utilized adhering to the principles of AL EAN. COMPARISON STUDY: 02/20/2019 FINDINGS: Bibasilar subpleural reticulation suggests fibrosis intermixed with atelectasis. 5 mm solid nodule of the posterior basal segment left lower lobe, image 56 series 3 previously measured 3 mm on the study from 02/20/2019. Linear 7 mm nodular opacity on image 60 series 3 suggests scarring/atelectasis and i s unchanged. There are a few solid nodules of the lateral basal right lower lobe measuring up to 7 mm which have decreased in size from comparison. There is no pneumatosis or pneumoperitoneum identified . Trace pericardial effusion. Pectus excavatum. Trace perisplenic ascites. The spleen is otherwise unremarkable. Pancreatic duct measures the upper l imits of 3 mm. The pancreas is otherwise unremarkable. Adrenal glands are within normal limits. Mild to moderate gallbladder distention. Mild prominence of the intrahepatic and extrahepatic biliary tree without obstructing stone or lesion identified. Hepatic metastasis redemonstrated with several of th e lesions mildly increased in size from comparison. Patency of the hepatic and portal veins. Symmetri c enhancement of the kidneys. No obstructive uropathy. Moderate urinary bladder distention. Uterus an d adnexa are unremarkable. Moderate mixed plaque the abdominal aorta without aneurysm. Unremarkable I VC. Prominent periportal and retroperitoneal lymph nodes are again seen measuring up to 6 to 7 mm. No definite progressive adenopathy. Mild to moderate wall thickening of the distal esophagus. No small bowel obstruction. Debris-filled p atent stent of the sigmoid colon. Wall thickening with mild pericolonic stranding is again noted with in this distribution. Moderate to extensive fecal retention. There is mild wall thickening of the cec um, ascending colon and hepatic flexure with mild pericolonic stranding. The appendix is not definiti vely visualized. Soft tissues are unremarkable. Degenerative changes of the spine, pelvis and hips. N o acute fracture identified. There are no new suspicious bone lesions identified. Mild lumbar levosco liosis. IMPRESSION: 1. Debris-filled patent stent of the sigmoid colon. 2. Wall thickening of the cecum, ascending colon and hepatic flexure is suggestive of a nonspecific c olitis. 3. Trace abdominal pelvic ascites, likely reactive. 4. No bowel obstruction or pneumoperitoneum. 5. Moderate to extensive fecal retention. 6. Slightly increased size of several hepatic lesions suggestive of progressive hepatic metastasis. 7. 5 mm solid nodule the basal left lower lobe has slightly increased in size from comparison. Attent ion at follow-up recommended to exclude pulmonary metastasis. 8. Additional findings as above. Please refer to below summary of Fleischner criteria recommendations for follow-up of incidental CT n odules (Alison Linares, Guidelines for management of small pulmonary nodules detected on CT scans: A sta tement from the Fleischner Society, Radiology 237: [id number].) SOLID NODULES Solitary nodule size: <6 mm * Low risk patients: no follow-up needed * high risk patients: optional CT at 12 months Solitary nodule size: 6-8 mm * Low risk patients: follow-up at 6-12 months, then consider further follow-up at 18-24 months * high risk patients: initial follow-up CT at 6-12 months and then at 18-24 months if no change Solitary nodule size: >8 mm * either low or high risk patients - consider follow-up CT at 3 months, and/or CT-PET, and/or biopsy Multiple nodules size: <6 mm * Low risk patients: no routine follow-up * high risk patients: optional CT at 12 months Multiple nodules size: 6-8 mm * Low risk patients: follow-up at 3-6 months, then consider further follow-up at 18-24 months * high risk patients: follow-up at 3-6 months, then at 18-24 months if no change Multiple nodules size: >8 mm * Low risk patients: follow-up at 3-6 months, then consider further follow-up at 18-24 months * high risk patients: follow-up at 3-6 months, then at 18-24 months if no change Note: newly detected indeterminate nodule in persons 35 years of age or older. * Low risk patients: minimal or absent history of smoking and/or other known risk factors * high risk patients: history of smoking or of other known risk factors (e.g. first degree relative with lung cancer, or exposure to asbestos, radon, uranium) * if a nodule up to 8 mm is partly solid or is ground glass further follow-up is required after 24 m onths to exclude possible slow growing adenocarcinoma ([place]) SUBSOLID NODULES Solitary pure ground-glass nodule * nodule size <6 mm - no CT follow-up required * nodule size >=6 mm - follow-up CT at 6-12 months, then every 2 years until 5 years Solitary part-solid nodule * nodule size <6 mm - no CT follow-up required * nodule size >=6 mm - follow-up CT at 3-6 months. If unchanged, and solid component remains <6 mm, then annual follow-up for 5 years Multiple subsolid nodules * nodule size <6 mm - follow-up CT at 3-6 months, consider further follow-up at 2 and 4 years if sta ble * nodule size >=6 mm - follow-up CT at 3-6 months, subsequent management based on the most suspiciou s nodule(s) The above report was generated using voice recognition software. It may contain grammatical, syntax o r spelling errors. ACT 112: Negative or not required by law. The above report was generated using voice recognition software. It may contain grammatical, syntax o r spelling errors. Electronically signed by: Marcelo Tolliver M.D. 08/30/2019 6:58 PM
[2019-08-30] MEDS ORDERED: PIPERACILL/TAZOBAC CONSULT ACTIVE PRN (20:46)
[2019-08-30] MEDS ORDERED: PIPERACILLIN/TAZOBACTAM 4.5 GM/120 ML BAG IV ONE (20:46)
[2019-08-30] MEDS ORDERED: HYDROmorphone INJ 0.5 MG/0.5 ML SYR IV STA (21:10)
[2019-08-30] MEDS ORDERED: HYDROmorphone INJ 0.5 MG/0.5 ML SYR ONE (21:12)
[2019-08-30] MEDS ORDERED: HYOSCYAMINE SULFATE 0.375 MG TABCR PO PRN (22:24)
[2019-08-30] MEDS ORDERED: POLYETHYLENE (MIRALAX) 17 GM PACK PO PRN (22:24)
[2019-08-30] MEDS ORDERED: TRAMADOL HCL 50 MG TABLET PO PRN (22:24)
[2019-08-30] MEDS ORDERED: ONDANSETRON INJ 2 MG/ML 2 ML VIAL IV PRN (22:24)
[2019-08-30] MEDS: HYDROmorphone INJ 0.5 MG/0.5 ML SYR IV PRN (22:47)
--- NOTE | 2019-08-30 23:28 | Emergency Department Note ---
Entered by Mattie Santiago acting as a scribe for History of Present Illness General Chief complaint: Referred by Doctor Stated complaint: THROWING UP - ABD PAIN - HEADACHE Time Seen by Provider: 08/30/19 16:40 Source: patient History of Present Illness Onset (ago): hour(s) (several ) Location: abdomen Pain Consistency: + other (persistent ) Maximum Pain Intensity: 8 Quality: + other (nausea and vomiting ) Relieved By: not by medication (nausea medication ) Associated symptoms: + other (positive lower abdominal pain ); no fever/chills and no headaches Treatments prior to arrival: other (nausea medication ) The patient is a 69 year old female who presents to the Emergency Room with complaints of persistent nausea and vomiting that began this morning, several hours prior to arrival. The patient states that over the last few hours her vomit began to turn a bright green color. She states that she was given nausea medications in an IV by her Oncologist, but states that this did not relieve her symptoms. She reports that she has lower abdominal pain. The patient denies fevers and headache. The patient states that she is currently receiving chemotherapy treatments for colon cancer, stating that her most recent treatment was yesterday. The patient states that she has a stent in her colon. Home Medications Home Medications Medication Instructions Recorded Confirmed Type cholecalciferol (vitamin D3) 1,000 unit PO QDL 04/23/18 08/30/19 History [Vitamin D3] levothyroxine 25 mcg PO QAM 04/23/18 08/30/19 History tramadol 50 - 100 mg PO TID PRN 04/23/18 08/30/19 History ondansetron HCl [Zofran] 8 mg PO Q8H PRN 05/20/18 08/30/19 History calcium carbonate [Calcium 600] 600 mg PO BID 08/30/19 08/30/19 History hyoscyamine sulfate 0.375 mg PO Q12H PRN 08/30/19 08/30/19 History prochlorperazine maleate 10 mg PO Q6H PRN 08/30/19 08/30/19 History Allergies Allergy/AdvReac Type Severity Reaction Status Date / Time alendronate sodium Allergy Mild FLU LIKE Verified 08/30/19 18:05 SYMPTOMS Antifungal - Imidazole Allergy Mild SWELLING Verified 08/30/19 18:05 aspirin Allergy Mild COUGHING Verified 08/30/19 18:05 Sulfa (Sulfonamide AdvReac Mild NAUSEA Verified 08/30/19 18:05 Antibiotics) Past Med/Surg History Medical History Asthma no inhalers Cancer diagnosed 03/14/2018--COLON CANCER with METS TO LUNG/LIVER--currently receiving chemo Hx of renal calculi Hypothyroid MVP (mitral valve prolapse) MINOR Osteoporosis Pes cavus RT/LEFT FOOT Surgical History H/O colonoscopy last colonoscopy 03/14/18 had stent placed at tumor site History of tooth extraction History of vascular access device right chest wall History of wisdom tooth extraction Family History Sister Family history of diabetes mellitus Brother Family history of diabetes mellitus Other No family history of adverse response to anesthesia Social History Preferred Language: Guatemalan Communication Ability: Effective Visual Impairment: No Limitations Hearing Ability: Normal [employer] Digger Required: No Beliefs That Will Affect Care: None Current Living Situation: Spouse Other Information That Helps Us Care for You: No Feels Safe at Home: Yes Safety Concerns: Feels Safe At This Time Smoking Status: Never smoker Do You Dip or Chew Tobacco: No ; Second Hand Exposure: Yes ; Hx Alcohol Use: No Hx Substance Use: No Review of Systems See HPI for pertinent positives & negatives. and A total of 10 systems reviewed and were otherwise negative Physical Exam Vital Signs Vital Signs - 24 hr 08/30/19 16:00 08/30/19 17:03 08/30/19 17:15 Temperature 36.4 C L Temperature Source Oral Pulse Rate 87 79 78 Pulse Rate [Right Finger] Pulse Rate from SpO2 Sensor 79 80 Pulse Rhythm Regular Pulse Strength Normal Respiratory Rate 18 24 25 H Respiratory Effort / Characteristics Non-Labored Respiratory Depth Normal Respiratory Pattern Regular Blood Pressure 156/69 H 128/59 L Blood Pressure [Right Arm] Blood Pressure Mean 98 78 Blood Pressure Mean [Right Arm] Blood Pressure Position Sitting Pulse Oximetry 98 99 99 Oxygen Delivery Method Room Air Sepsis Recent Fever Within 48 Hours No Sepsis Action Taken by Nursing No Action Required 08/30/19 17:30 08/30/19 18:00 08/30/19 18:32 Temperature Temperature Source Pulse Rate 86 84 78 Pulse Rate [Right Finger] Pulse Rate from SpO2 Sensor 86 84 Pulse Rhythm Pulse Strength Respiratory Rate 25 H 23 25 H Respiratory Effort / Characteristics Respiratory Depth Respiratory Pattern Blood Pressure 167/65 H Blood Pressure [Right Arm] Blood Pressure Mean 100 Blood Pressure Mean [Right Arm] Blood Pressure Position Pulse Oximetry 99 100 Oxygen Delivery Method Sepsis Recent Fever Within 48 Hours Sepsis Action Taken by Nursing 08/30/19 18:41 08/30/19 19:00 08/30/19 19:30 Temperature Temperature Source Pulse Rate 96 H 90 84 Pulse Rate [Right Finger] Pulse Rate from SpO2 Sensor 92 H 85 Pulse Rhythm Pulse Strength Respiratory Rate 21 23 20 Respiratory Effort / Characteristics Respiratory Depth Respiratory Pattern Blood Pressure 181/74 H Blood Pressure [Right Arm] Blood Pressure Mean 103 Blood Pressure Mean [Right Arm] Blood Pressure Position Pulse Oximetry 98 99 Oxygen Delivery Method Sepsis Recent Fever Within 48 Hours Sepsis Action Taken by Nursing 08/30/19 20:00 08/30/19 20:30 08/30/19 20:46 Temperature Temperature Source Pulse Rate 88 90 Pulse Rate [Right Finger] 93 H Pulse Rate from SpO2 Sensor 88 92 H Pulse Rhythm Pulse Strength Respiratory Rate 21 31 H 20 Respiratory Effort / Characteristics Respiratory Depth Respiratory Pattern Blood Pressure Blood Pressure [Right Arm] Blood Pressure Mean Blood Pressure Mean [Right Arm] Blood Pressure Position Pulse Oximetry 100 99 98 Oxygen Delivery Method Sepsis Recent Fever Within 48 Hours Sepsis Action Taken by Nursing 08/30/19 20:52 08/30/19 20:53 08/30/19 21:00 Temperature Temperature Source Pulse Rate 91 H 91 H Pulse Rate [Right Finger] 88 Pulse Rate from SpO2 Sensor Pulse Rhythm Pulse Strength Respiratory Rate 22 19 22 Respiratory Effort / Characteristics Respiratory Depth Normal Respiratory Pattern Blood Pressure 167/104 H 165/92 H Blood Pressure [Right Arm] 167/104 H Blood Pressure Mean 127 114 Blood Pressure Mean [Right Arm] 125 Blood Pressure Position Pulse Oximetry 97 Oxygen Delivery Method Sepsis Recent Fever Within 48 Hours Sepsis Action Taken by Nursing 08/30/19 21:01 Temperature Temperature Source Pulse Rate 87 Pulse Rate [Right Finger] Pulse Rate from SpO2 Sensor Pulse Rhythm Pulse Strength Respiratory Rate 22 Respiratory Effort / Characteristics Respiratory Depth Respiratory Pattern Blood Pressure Blood Pressure [Right Arm] Blood Pressure Mean Blood Pressure Mean [Right Arm] Blood Pressure Position Pulse Oximetry Oxygen Delivery Method Sepsis Recent Fever Within 48 Hours Sepsis Action Taken by Nursing GENERAL: The patient appears distressed. Actively vomiting bile-like material. HENT: Exam performed. Head: Normocephalic and atraumatic. Right Ear: External ear normal. No mastoid tenderness. Left Ear: External ear normal. No mastoid tenderness. Mouth/Throat: The oropharynx is clear and moist. No trismus in the jaw. No dental abscesses or uvula swelling. No oropharyngeal exudate or tonsillar abscesses. EYES: Conjunctivae and EOM are normal. Pupils are equal, round, and reactive to light. Right eye exhibits no discharge. Left eye exhibits no discharge. No scleral icterus. NECK: Normal range of motion. Neck supple. No JVD present. No spinous process tenderness present. No carotid bruit present. No rigidity. No tracheal deviation and normal range of motion present. No Brudzinski's sign and no Kernig's sign noted. CV: Normal rate, regular rhythm, normal heart sounds and intact distal pulses. There is no peripheral edema. Palpable radial pulses bue. PULM/CHEST: Effort normal and breath sounds normal. No respiratory distress. No stridor. She has no wheezes. She has no rales. Chest Wall: She exhibits no tenderness. Port that is hooked up to IV tubing in place. ABD: The abdomen is soft. Bowel sounds are normal. She has no distension. No mass is present. There is no tenderness. There is no rebound, no guarding, no Ely's sign and no tenderness at McBurney's point. Rovsig negative MUSC/SKEL: Normal range of motion. There is no peripheral edema, tenderness or deformity. LYMPH: No cervical adenopathy. NEURO: She is alert and oriented to person, place, and time. She has normal strength. No cranial nerve deficit or sensory deficit. Coordination and gait normal. GCS eye subscore is 4. GCS verbal subscore is 5. GCS motor subscore is 6. cerbellar tests wnl. SKIN: Skin is warm and dry. She is not diaphoretic. PSYCH: She has a normal mood and affect. Her behavior is normal. Judgment and thought content normal. Course Course 164: Past medical records reviewed. The patient was evaluated in room B10. A complete history and physical exam was performed. 1744: Patient has not vomited status post IV Zofran. She does report continued nausea and abdominal pain repeat analgesia and Zofran will be given. 2045: Vital signs stable. No leukocytosis. Labs show a lactic acid of 5.3. Urinalysis, influenza, and chest x-ray are negative. CT of the abdomen showed no obstruction or peritoneum nonspecific colitis debris-filled stent in the sigmoid colon. Status post 30cc per kilo bolus of normal saline, the patient's lactic acid only went down to 4.6. It is thought that she could be septic as she is immunocompromised. I discussed this with Dr. Mariee [facility] and the patient will be given a dose of Zosyn. He states that he will evaluate the patient. I discussed the case with Dr. Mariee Hospitalist who accepts the patient for further evaluation. Administered Medications Hydromorphone HCl (Dilaudid) 0.5 mg IV Q3H PRN PRN Reason: Pain Stop: 09/13/19 22:23 Last Admin: 08/30/19 22:47 Dose: 0.5 mg Documented by: [id number] Sodium Chloride (Nss) 500 mls @ 150 mls/hr IV .Q3H20M SABINA Stop: 09/29/19 18:29 Last Admin: 08/30/19 22:41 Dose: 150 mls/hr Documented by: [id number] Infusion: 08/30/19 21:42 Dose: 0 mls/hr Documented by: [id number] Admin: 08/30/19 18:42 Dose: 150 mls/hr Documented by: [id number] Piperacillin Sod/Tazobactam Sod (Zosyn) 4.5 gm in 120 mls @ 30 mls/hr IV NOW ONE Stop: 08/31/19 00:45 Last Infusion: 08/30/19 22:12 Dose: 0 mls/hr Documented by: [id number] Admin: 08/30/19 20:52 Dose: 30 mls/hr Documented by: [id number] Ondansetron HCl (Zofran) 4 mg IV Q6H PRN PRN Reason: Nausea Stop: 09/29/19 22:23 Last Admin: 08/30/19 22:49 Dose: 4 mg Documented by: [id number] Discontinued Medications Hydromorphone HCl (Dilaudid) 0.5 mg IV NOW STA Stop: 08/30/19 21:11 Last Admin: 08/30/19 21:15 Dose: Not Given Documented by: [id number] Hydromorphone HCl (Dilaudid) Confirm Administered Dose 0.5 mg .ROUTE .STK-MED ONE Stop: 08/30/19 21:13 Last Admin: 08/30/19 21:14 Dose: 0.5 mg Documented by: [id number] Sodium Chloride (Nss 1000ml) 1,000 mls @ 999 mls/hr IV .Q1H1M ONE Stop: 08/30/19 17:45 Last Infusion: 08/30/19 19:23 Dose: 0 mls/hr Documented by: [id number] Admin: 08/30/19 16:56 Dose: 999 mls/hr Documented by: [id number] Ioversol (Optiray 320 100ml) 94 ml IV ONCE PRN PRN Reason: Interaction Checking Stop: 09/03/19 18:28 Last Admin: 08/30/19 18:29 Dose: 94 ml Documented by: [id number] Morphine Sulfate (Morphine Sulfate) 4 mg IV NOW STA Stop: 08/30/19 16:49 Last Admin: 08/30/19 16:56 Dose: 4 mg Documented by: [id number] Morphine Sulfate (Morphine Sulfate) 4 mg IV NOW STA Stop: 08/30/19 18:27 Last Admin: 08/30/19 18:41 Dose: 4 mg Documented by: [id number] Ondansetron HCl (Zofran) 4 mg IV NOW STA Stop: 08/30/19 16:47 Last Admin: 08/30/19 16:56 Dose: 4 mg Documented by: [id number] Ondansetron HCl (Zofran) 4 mg IV NOW STA Stop: 08/30/19 17:40 Last Admin: 08/30/19 17:49 Dose: 4 mg Documented by: [id number] Critical Care Time Critical Care Time: Yes Total Critical Care Time: 87 I have personally spent 87 minutes of critical care time in the direct management of this patient. This includes bedside care, interpretation of diagnostic studies, and testing, discussion with consultants, patient, and family members, and other required patient management activities. This 87 minut es is in excess of all separately billable procedures. Medical Decision Making Medical Records Attestation: I reviewed the patient's medical records. Home Medications Current Medication List: was personally reviewed by me Laboratory Data Attestation: I reviewed the patient's lab results. Result diagrams: 08/30/19 17:01 08/30/19 17:01 Lab Results 08/30/19 08/30/19 08/30/19 Range/Units 16:50 17:01 17:01 WBC 6.25 (4.8-10.8) K/uL RBC 3.71 L (4.2-5.4) M/uL Hgb 11.2 L (12.0-16.0) g/dL Hct 33.9 L (37-47) % MCV 91.4 (80-100) fL MCH 30.2 (25-34) pg MCHC 33.0 (32-36) g/dL RDW Std Deviation 45.4 (36.4-46.3) fL RDW Coeff of Michele 14.0 (11.5-14.5) % Plt Count 293 (130-400) K/uL MPV 9.4 (7.4-10.4) fL Immature Gran % (Auto) 0.3 % Neut % (Auto) 93.8 % Lymph % (Auto) 3.5 % [place] % (Auto) 2.4 % Eos % (Auto) 0.0 % Baso % (Auto) 0.0 % Immature Gran # (Auto) 0.02 (0.00-0.02) K/uL Neut # (Auto) 5.86 (1.4-6.5) K/uL Lymph # (Auto) 0.22 L (1.2-3.4) K/uL [place] # (Auto) 0.15 (0.11-0.59) K/uL Eos # (Auto) 0.00 (0-0.5) K/uL Baso # (Auto) 0.00 (0-0.2) K/uL PT 10.7 (9.0-12.0) Seconds INR 1.0 (0.9-1.1) APTT 27.5 (21.0-31.0) Seconds PTT Ratio 1.0 Sodium (136-145) mmol/L Potassium (3.5-5.1) mmol/L Chloride (98-107) mmol/L Carbon Dioxide (21-32) mmol/L Anion Gap (3-11) BUN (7-18) mg/dl Creatinine (0.6-1.2) mg/dl Est Cr Clr Drug Dosing ml/min Est GFR ( Amer) Est GFR (Non-Af Amer) BUN/Creatinine Ratio (10-20) Glucose (70-99) mg/dl Lactate (0.4-2.0) mmol/L Calcium (8.5-10.1) mg/dl Magnesium (1.8-2.4) mg/dl Total Bilirubin (0.2-1) mg/dl Direct Bilirubin (0-0.2) mg/dl AST (15-37) U/L ALT (12-78) U/L Alkaline Phosphatase (45-117) U/L Total Protein (6.4-8.2) gm/dl Albumin (3.4-5.0) gm/dl Procalcitonin (0-0.5) ng/ml Urine Color Urine Appearance (Clear) Urine pH (4.5-7.5) Ur Specific [place] (1.000-1.030) Urine Protein (Negative) Urine Glucose (UA) (Negative) Urine Ketones (Negative) Urine Blood (Negative) Urine Nitrite (Negative) Urine Bilirubin (Negative) Urine Urobilinogen (Negative) Ur Leukocyte Esterase (Negative) Urine WBC (Auto) (0-5) /hpf Urine RBC (Auto) (0-4) /hpf U Hyaline Cast (Auto) (0-5) /lpf U Epithel Cells (Auto) (0-5) /lpf Urine Bacteria (Auto) (Negative) Influenza Type A (PCR) Neg for Influ A (Neg) Influenza Type B (PCR) Neg for Influ B (Neg) 08/30/19 08/30/19 08/30/19 Range/Units 17:01 17:01 17:01 WBC (4.8-10.8) K/uL RBC (4.2-5.4) M/uL Hgb (12.0-16.0) g/dL Hct (37-47) % MCV (80-100) fL MCH (25-34) pg MCHC (32-36) g/dL RDW Std Deviation (36.4-46.3) fL RDW Coeff of Michele (11.5-14.5) % Plt Count (130-400) K/uL MPV (7.4-10.4) fL Immature Gran % (Auto) % Neut % (Auto) % Lymph % (Auto) % [place] % (Auto) % Eos % (Auto) % Baso % (Auto) % Immature Gran # (Auto) (0.00-0.02) K/uL Neut # (Auto) (1.4-6.5) K/uL Lymph # (Auto) (1.2-3.4) K/uL [place] # (Auto) (0.11-0.59) K/uL Eos # (Auto) (0-0.5) K/uL Baso # (Auto) (0-0.2) K/uL PT (9.0-12.0) Seconds INR (0.9-1.1) APTT (21.0-31.0) Seconds PTT Ratio Sodium 141 (136-145) mmol/L Potassium 3.4 L (3.5-5.1) mmol/L Chloride 112 H (98-107) mmol/L Carbon Dioxide 17 L (21-32) mmol/L Anion Gap 12.0 H (3-11) BUN 20 H (7-18) mg/dl Creatinine 0.89 (0.6-1.2) mg/dl Est Cr Clr Drug Dosing 37.6 ml/min Est GFR ( Amer) 77.7 Est GFR (Non-Af Amer) 67.1 BUN/Creatinine Ratio 22.3 H (10-20) Glucose 135 H (70-99) mg/dl Lactate 5.3 H* (0.4-2.0) mmol/L Calcium 8.6 (8.5-10.1) mg/dl Magnesium 2.2 (1.8-2.4) mg/dl Total Bilirubin 0.7 (0.2-1) mg/dl Direct Bilirubin 0.2 (0-0.2) mg/dl AST 24 (15-37) U/L ALT 33 (12-78) U/L Alkaline Phosphatase 222 H (45-117) U/L Total Protein 6.7 (6.4-8.2) gm/dl Albumin 2.8 L (3.4-5.0) gm/dl Procalcitonin 0.29 (0-0.5) ng/ml Urine Color Urine Appearance (Clear) Urine pH (4.5-7.5) Ur Specific [place] (1.000-1.030) Urine Protein (Negative) Urine Glucose (UA) (Negative) Urine Ketones (Negative) Urine Blood (Negative) Urine Nitrite (Negative) Urine Bilirubin (Negative) Urine Urobilinogen (Negative) Ur Leukocyte Esterase (Negative) Urine WBC (Auto) (0-5) /hpf Urine RBC (Auto) (0-4) /hpf U Hyaline Cast (Auto) (0-5) /lpf U Epithel Cells (Auto) (0-5) /lpf Urine Bacteria (Auto) (Negative) Influenza Type A (PCR) (Neg) Influenza Type B (PCR) (Neg) 08/30/19 08/30/19 Range/Units 18:15 19:05 WBC (4.8-10.8) K/uL RBC (4.2-5.4) M/uL Hgb (12.0-16.0) g/dL Hct (37-47) % MCV (80-100) fL MCH (25-34) pg MCHC (32-36) g/dL RDW Std Deviation (36.4-46.3) fL RDW Coeff of Michele (11.5-14.5) % Plt Count (130-400) K/uL MPV (7.4-10.4) fL Immature Gran % (Auto) % Neut % (Auto) % Lymph % (Auto) % [place] % (Auto) % Eos % (Auto) % Baso % (Auto) % Immature Gran # (Auto) (0.00-0.02) K/uL Neut # (Auto) (1.4-6.5) K/uL Lymph # (Auto) (1.2-3.4) K/uL [place] # (Auto) (0.11-0.59) K/uL Eos # (Auto) (0-0.5) K/uL Baso # (Auto) (0-0.2) K/uL PT (9.0-12.0) Seconds INR (0.9-1.1) APTT (21.0-31.0) Seconds PTT Ratio Sodium (136-145) mmol/L Potassium (3.5-5.1) mmol/L Chloride (98-107) mmol/L Carbon Dioxide (21-32) mmol/L Anion Gap (3-11) BUN (7-18) mg/dl Creatinine (0.6-1.2) mg/dl Est Cr Clr Drug Dosing ml/min Est GFR ( Amer) Est GFR (Non-Af Amer) BUN/Creatinine Ratio (10-20) Glucose (70-99) mg/dl Lactate 4.6 H* (0.4-2.0) mmol/L Calcium (8.5-10.1) mg/dl Magnesium (1.8-2.4) mg/dl Total Bilirubin (0.2-1) mg/dl Direct Bilirubin (0-0.2) mg/dl AST (15-37) U/L ALT (12-78) U/L Alkaline Phosphatase (45-117) U/L Total Protein (6.4-8.2) gm/dl Albumin (3.4-5.0) gm/dl Procalcitonin (0-0.5) ng/ml Urine Color Yellow Urine Appearance Clear (Clear) Urine pH 6.5 (4.5-7.5) Ur Specific [place] 1.014 (1.000-1.030) Urine Protein Negative (Negative) Urine Glucose (UA) Negative (Negative) Urine Ketones Negative (Negative) Urine Blood Trace H (Negative) Urine Nitrite Negative (Negative) Urine Bilirubin Negative (Negative) Urine Urobilinogen Negative (Negative) Ur Leukocyte Esterase Negative (Negative) Urine WBC (Auto) 1-5 (0-5) /hpf Urine RBC (Auto) 0-4 (0-4) /hpf U Hyaline Cast (Auto) 1-5 (0-5) /lpf U Epithel Cells (Auto) 10-20 H (0-5) /lpf Urine Bacteria (Auto) Negative (Negative) Influenza Type A (PCR) (Neg) Influenza Type B (PCR) (Neg) Imaging Data Radiologist's Impression: Radiology results as stated below per my review and the radiologist's interpretation: XR chest 1V portable HISTORY: Vomiting. COMPARISON: Chest 05/20/2018. FINDINGS: No pneumothorax. No pleural effusions. Calcified right paratracheal lymph nodes are again noted. The heart is normal in size. No focal lung consolidations to suggest pneumonia. No evidence for pulmonary edema. Right subclavian Port-A-Cath terminates at the SVC. IMPRESSION: No significant change compared to the prior study. No acute process. ACT 112: Negative or not required by law. Electronically signed by: Schuyler Conrad M.D. 08/30/2019 6:26 PM ABDOMEN AND PELVIS CT WITH IV CONTRAST CT DOSE: 252.32 mGy.cm HISTORY: Acute vomiting with lower abdominal pain. History of colon cancer vomitting hx colon ca TECHNIQUE: Multiaxial CT images of the abdomen and pelvis were performed following the IV administration of 94 cc of Optiray 320, A dose lowering technique was utilized adhering to the principles of ALARA. COMPARISON STUDY: 02/20/2019 FINDINGS: Bibasilar subpleural reticulation suggests fibrosis intermixed with atelectasis. 5 mm solid nodule of the posterior basal segment left lower lobe, image 56 series 3 previously measured 3 mm on the study from 02/20/2019. Linear 7 mm nodular opacity on image 60 series 3 suggests scarring/atelectasis and is unchanged. There are a few solid nodules of the lateral basal right lower lobe measuring up to 7 mm which have decreased in size from comparison. There is no pneumatosis or pneumoperitoneum identified. Trace pericardial effusion. Pectus excavatum. Trace perisplenic ascites. The spleen is otherwise unremarkable. Pancreatic duct measures the upper limits of 3 mm. The pancreas is otherwise unremarkable. Adrenal glands are within normal limits. Mild to moderate gallbladder distention. Mild prominence of the intrahepatic and extrahepatic biliary tree without obstructing stone or lesion identified. Hepatic metastasis r edemonstrated with several of the lesions mildly increased in size from comparison. Patency of the hepatic and portal veins. Symmetric enhancement of the kidneys. No obstructive uropathy. Moderate urinary bladder distention. Uterus and adnexa are unremarkable. Moderate mixed plaque the abdominal aorta without aneurysm. Unremarkable IVC. Prominent periportal and retroperitoneal lymph nodes are again seen measuring up to 6 to 7 mm. No definite progressive adenopathy. Mild to moderate wall thickening of the distal esophagus. No small bowel obstruction. Debris-filled patent stent of the sigmoid colon. Wall thickening with mild pericolonic stranding is again noted within this distribution. Moder ate to extensive fecal retention. There is mild wall thickening of the cecum, ascending colon and hepatic flexure with mild pericolonic stranding. The appendix is not definitively visualized. Soft tissues are unremarkable. Degenerative changes of the spine, pelvis and hips. No acute fracture identif ied. There are no new suspicious bone lesions identified. Mild lumbar levoscoliosis. IMPRESSION: 1. Debris-filled patent stent of the sigmoid colon. 2. Wall thickening of the cecum, ascending colon and hepatic flexure is suggestive of a nonspecific colitis. 3. Trace abdominal pelvic ascites, likely reactive. 4. No bowel obstruction or pneumoperitoneum. 5. Moderate to extensive fecal retention. 6. Slightly increased size of several hepatic lesions suggestive of progressive hepatic metastasis. 7. 5 mm solid nodule the basal left lower lobe has slightly increased in size from comparison. Attention at follow-up recommended to exclude pulmonary metastasis. 8. Additional findings as above. Please refer to below summary of Fleischner criteria recommendations for follow- up of incidental CT nodules (Alison Linares, Guidelines for management of small pulmonary nodules detected on CT scans: A statement from the Fleischner Society, Radiology 237: [phone].) SOLID NODULES Solitary nodule size: <6 mm * Low risk patients: no follow-up needed * high risk patients: optional CT at 12 months Solitary nodule size: 6-8 mm * Low risk patients: follow-up at 6-12 months, then consider further follow-up at 18-24 months * high risk patients: initial follow-up CT at 6-12 months and then at 18-24 months if no change Solitary nodule size: >8 mm * either low or high risk patients - consider follow-up CT at 3 months, and/or CT-PET, and/or biopsy Multiple nodules size: <6 mm * Low risk patients: no routine follow-up * high risk patients: optional CT at 12 months Multiple nodules size: 6-8 mm * Low risk patients: follow-up at 3-6 months, then consider further follow-up at 18-24 months * high risk patients: follow-up at 3-6 months, then at 18-24 months if no change Multiple nodules size: >8 mm * Low risk patients: follow-up at 3-6 months, then consider further follow-up at 18-24 months * high risk patients: follow-up at 3-6 months, then at 18-24 months if no change Note: newly detected indeterminate nodule in persons 35 years of age or older. * Low risk patients: minimal or absent history of smoking and/or other known risk factors * high risk patients: history of smoking or of other known risk factors (e.g. first degree relative with lung cancer, or exposure to asbestos, radon, uranium) * if a nodule up to 8 mm is partly solid or is ground glass further follow-up is required after 24 months to exclude possible slow growing adenocarcinoma ([place]) SUBSOLID NODULES Solitary pure ground-glass nodule * nodule size <6 mm - no CT follow-up required * nodule size >=6 mm - follow-up CT at 6-12 months, then every 2 years until 5 years Solitary part-solid nodule * nodule size <6 mm - no CT follow-up required * nodule size >=6 mm - follow-up CT at 3-6 months. If unchanged, and solid component remains <6 mm, then annual follow-up for 5 years Multiple subsolid nodules * nodule size <6 mm - follow-up CT at 3-6 months, consider further follow-up at 2 and 4 years if stable * nodule size >=6 mm - follow-up CT at 3-6 months, subsequent management based on the most suspicious nodule(s) The above report was generated using voice recognition software. It may contain grammatical, syntax or spelling errors. ACT 112: Negative or not required by law. The above report was generated using voice recognition software. It may contain grammatical, syntax or spelling errors. Electronically signed by: Marcelo Tolliver M.D. 08/30/2019 6:58 PM ECG Data Attestation: I personally reviewed and interpreted this ECG as follows: Indication: + vomiting Rate (beats per minute): 84 Rhythm: + sinus rhythm ECG Intervals/blocks: + Normal QRS (70), + Short MT (88) and + Normal QT-c (472) ECG ST segments: no ST depression and no ST elevation ECG Findings: + PVCs and + Other (no delta wave) Blood Pressure Blood Pressure Findings: Elevated blood pressure Blood Pressure Disposition: further management by hospitalist FARHAN Narrative 164: Past medical records reviewed. The patient was evaluated in room B10. A complete history and physical exam was performed. 1744: Patient has not vomited status post IV Zofran. She does report continued nausea and abdominal pain repeat analgesia and Zofran will be given. 2045: Vital signs stable. No leukocytosis. Labs show a lactic acid of 5.3. Urinalysis, influenza, and chest x-ray are negative. CT of the abdomen showed no obstruction or peritoneum nonspecific colitis debris-filled stent in the sigmoid colon. Status post 30cc per kilo bolus of normal saline, the patient's lactic acid only went down to 4.6. It is thought that she could be septic as she is immunocompromised. I discussed this with Dr. Mariee Hospitalist and the patient will be given a dose of Zosyn. He states that he will evaluate the patient. I discussed the case with Dr. Mariee Hospitalist who accepts the patient for further evaluation. Impression & Plan Nausea & vomiting, Lactic acidemia, Dehydration, Sepsis Discharge Plan Visit Data *Final* Discharge Date/Time: 08/30/19 22:14 Chief Complaint: Referred by Doctor Stated Complaint: THROWING UP - ABD PAIN - HEADACHE ED Provider: Tano Rush Discharge Problem: Nausea & vomiting, Lactic acidemia, Dehydration, Sepsis Patient Disposition: Admitted As Inpatient Discharge Instructions Interventions: ED Discharge Assessment Last Done: 08/30/19 22:14 Discharge Problem: Nausea & vomiting Qualifiers: Vomiting type: bilious vomiting Qualified Code(s): R11.14 - Bilious vomiting Sepsis Qualifiers: Sepsis type: sepsis due to unspecified organism Sepsis acute organ dysfunction status: without acute organ dysfunction Qualified Code(s): A41.9 - Sepsis, unspecified organism The scribe's documentation has been prepared under my direction and personally reviewed by me in its entirety. I confirm that the note above accurately reflects all work, treatment, procedures, and medical decision making performed by me.
--- NOTE | 2019-08-31 00:11 | History and Physical Report ---
DATE OF ADMISSION: 08/30/2019 CHIEF COMPLAINT: Abdominal pain, nausea and vomiting. HISTORY OF PRESENT ILLNESS: This is a 69-year-old female with past medical history significant for metastatic colon cancer to liver and lungs, currently on chemo, diagnosed about 1 year ago; history of hypothyroidism; mitral valve prolapse; PVCs; osteoporosis; severe protein-calorie malnutrition; presents with nausea, vomiting and abdominal pain. Since morning she had several episodes of nausea, vomiting. Initially it was whitish brown color but later having green vomitus.Also significant lower abdominal pain, 8/10 in severity, no radiation. She says she moved her bowels in the morning and she is not constipated and there is no blood in stools or black stools. No hematuria, no burning micturition. She lives with her . She is ambulating without any help. Before this episode, appetite is okay, but she has lost significant weight since she was diagnosed with colon cancer about a year ago. Denies any fever, chills. No chest pain, no shortness of breath. No headache, no blurred vision, no earache, no runny nose, no sore throat. No dysphagia, no odynophagia. Still having significant asking for pain medication. Nausea improved with antiemetics. Hemodynamically stable. CAT scan in the ER showed nonspecific colitis and also progressive hepatic metastasis. ALLERGIES: TO ALENDRONATE SODIUM, ASPIRIN, IMIDAZOLE, METRONIDAZOLE, SULFA ANTIBIOTICS. PAST MEDICAL HISTORY: As mentioned above. PAST SURGICAL HISTORY: Colonoscopy, cystoscopy, A-port insertion, sigmoidoscopy and colonic stent placed in 03/2019. MEDICATIONS: The patient is on hyoscyamine 0.375 mg b.i.d. p.r.n. for abdominal cramping, Zofran 8 mg p.o. t.i.d. p.r.n., Compazine 10 mg p.o. q. 6 hours p.r.n., tramadol 200 mg t.i.d. p.r.n., levothyroxine 25 mcg p.o. daily, calcium tablets daily, vitamin D 1000 units daily. FAMILY HISTORY: Significant for father has hypertension and stroke. Sister has diabetes, hypertension, depression. SOCIAL HISTORY: , lives with her . No smoking, no alcohol, no drug use. REVIEW OF SYMPTOMS: As per HPI. Rest of review of symptoms negative. PHYSICAL EXAMINATION: GENERAL: The patient is thin and frail, not in acute distress. VITAL SIGNS: Temperature 36.4, pulse 80, respiratory rate 19, blood pressure 167/104, oxygen 96 room air. HEENT: No pallor, no icterus. Extraocular muscles intact. NECK: No JVD, no neck masses, no carotid bruits. CARDIOVASCULAR: S1, S2 heard. Regular rate and rhythm. No murmur, no gallop. RESPIRATORY SYSTEM: Normal AP diameter. No accessory muscle use. No wheezing, no crackles. ABDOMEN: Soft, bowel sounds present. Diffuse tenderness. Mild guarding. No rigidity. No rebound tenderness. CENTRAL NERVOUS SYSTEM: Cranial nerves II-XII grossly intact, nonfocal. EXTREMITIES: No edema, no erythema. LABORATORY DATA: WBC 6.25, hemoglobin 11.2, hematocrit 33.9, platelets 293. PT 10.7, INR 1, APTT 27.5. Sodium 144, potassium 3.4, chloride 112, bicarb 17, anion gap 12, BUN 20, creatinine 0.8, serum glucose 135, lactate 4.6, calcium 8.6, magnesium 2.2. Total bilirubin 0.7, direct bilirubin 0.2, AST 24, ALT 33, alkaline phosphatase 222, total protein 6.7. Procalcitonin 0.29. Urinalysis negative except for trace blood. Influenza A and B, PCR negative. IMAGING: Chest x-ray: No significant change from prior study, no acute process.: CT of abdomen and pelvis shows Patent stent of sigmoid colon with debris; wall thickening of cecum, ascending colon and hepatic flexure, nonspecific colitis, trace abdominal pelvic ascites likely reactive. No bowel obstruction or pneumoperitoneum. Moderate extensive fecal retention, slightly increased size of several hepatic lesions suggestive of progressive hepatic metastasis, 5 mm solid nodule in the basal left lower lobe slightly increased in size from comparison, attention to follow up recommended to exclude pulmonary metastasis. EKG: Sinus rhythm with short MA with occasional PVCs at a rate of 84, nonspecific T-wave abnormality in anterior leads. ASSESSMENT AND PLAN: This is a 69-year-old female who presents with abdominal pain, nausea and vomiting. 1. Abdominal pain, nausea and vomiting. The patient has metastatic colon cancer, mets to liver and lungs. The patient is on Levsin as needed at home for abdominal discomfort. She also has status post sigmoid stent placed in 03/2019 and CAT scan shows debris filled but patent stent. CAT scan showing also colitis in the cecum, ascending colon and hepatic flexure region.Elevated lactic acid of 5.3, after fluids repeat was 4.6. There is no obvious source of infection except for the colitis. Empirically starting on Zosyn, IV pain medications, IV antiemetics, IV fluids, n.p.o. for now and consult GI for further recommendations. 2. Lactic acidosis. Metabolic acidosis secondary to above, getting fluids and antibiotics. We will follow the repeat labs. 3. Hypokalemia, we will replace. 4. Metastatic colon cancer with mets to liver and lungs, diagnosed about a year ago. CAT scan show progression of hepatic lesions, also lung nodule. Getting chemo currently with Hem-Onc. Follow up with Hem-Onc. 5. Hypothyroidism. Continue Synthroid. 6. DVT prophylaxis, SCDs for now. DISPOSITION: Admit to medical floor. Expect discharge home and follow with family doctor. Code status, level 1 full code ,Intubation only for a short period of time. PT and OT prior to discharge. Social Service to help with discharge planning. MTDD
[2019-08-31] MEDS: HYDROmorphone INJ 0.5 MG/0.5 ML SYR IV PRN ×6 (01:21→21:15)
[2019-08-31] MEDS ORDERED: HEPARIN 100 UNIT/ML 5ML FLUSH FLUSH PRN (02:11)
[2019-08-31] MEDS: PIPERACILLIN/TAZOBACTAM 4.5 GM in DEXTROSE 5% 100 ML IV SCH ×3 (02:15→17:12)
[2019-08-31] MEDS: SODIUM CHLORIDE 0.9% 500 ML IV SCH ×7 (02:18→21:19)
[2019-08-31] MEDS ORDERED: FLUCONAZOLE 50 MG TAB PO STA (02:41)
[2019-08-31] MEDS: LEVOTHYROXINE SODIUM 25 MCG TABLET PO SCH (06:16)
[2019-08-31 06:31] LABS: Echinocytes 1+; Hematocrit (blood only) 39.1 % (37-47); Hemoglobin 12.7 g/dL (12.0-16.0); Immature Granulocytes # (auto) 0.02 K/uL (0.00-0.02); Immature Granulocytes % (auto) 0.3 %; Lymphocytes # (auto) 0.31 K/uL (1.2-3.4); Lymphocytes % (auto) 4.6 %; Mean Corpuscular Hemoglobin 30.4 pg (25-34); Mean Corpuscular Hgb Conc 32.5 g/dL (32-36); Mean Corpuscular Volume 93.5 fL (80-100); Mean Platelet Volume 9.8 fL (7.4-10.4); Monocytes # (auto) 0.35 K/uL (0.11-0.59); Monocytes % (auto) 5.2 %; Neutrophils % (auto) 89.9 %; Platelet Count 479 K/uL (130-400); RDW Coefficient of Variation 14.6 % (11.5-14.5); RDW Standard Deviation 48.6 fL (36.4-46.3); Red Blood Count 4.18 M/uL (4.2-5.4); White Blood Count 6.78 K/uL (4.8-10.8)
[2019-08-31 06:46] LABS: BUN Creatinine Ratio 23.8 (10-20); Calcium 8.3 mg/dl (8.5-10.1); Creatinine Clr Calc Pharmacy 36.5 ml/min; Est GFR (African American) 73.7; Est GFR (Non-African American) 63.6; Potassium 3.5 mmol/L (3.5-5.1)
[2019-08-31] MEDS: TRAMADOL HCL 50 MG TABLET PO PRN ×2 (11:51→18:56)
--- NOTE | 2019-08-31 14:47 | Hospitalist Progress Note ---
Date of Service August 31, 2019 Assessment & Plan (1) Abdominal pain, acute: Admitted with generalized abdominal pain associated with distention and nausea History of metastatic colon cancer with status post colonic stent placed in March of last CT scan did not show any obstruction Pain is reasonably controlled with increasing dose of all TRAM She has been moving her bowel Clinically a bit better today We will continue with clears orally (2) Colitis: CT scan of the abdomen pelvis did show colitis involving the cecum, ascending colon and hepatic flexure Will start intravenous Zosyn Clinically better this morning (3) Nausea & vomiting: As above No more vomiting but nausea (4) Cancer: Has colon cancer with metastasis to liver and lungs Ongoing chemo Status post colonic stent placement in March of last CT scan did not show any chronic obstruction but did show decrease in the stent Noted to have increased lactic acid on admission Has been improving with intravenous fluid Hypothyroidism Continue replacement DVT prophylaxis Start with subcu heparin CODE STATUS Full Admission and Anticipated Discharge Date Admission Date: August 30, 2019 Subjective 08/31/2019 The patient was seen and examined in medical floor in presence of the family members She has been complaining of more abdominal pain associated with nausea She moved her bowels this morning and did not have any vomiting Review of Systems Review of Systems: All systems reviewed and are unremarkable except as noted below Gastrointestinal: + abdominal pain, + bloating and + nausea; no vomiting Physical Exam Physical Exam: Lying in bed with minimal discomfort secondary to abdominal pain Constitutional: + ill appearing and + thin; no acute distress Eyes: PERRL, conjunctivae normal, anicteric sclerae ENMT: external ear and nose normal, oropharynx normal Neck: trachea midline, no thyromegaly Respiratory: normal respiratory effort; no respiratory distress Auscultation: lungs clear to auscultation bilaterally Cardiovascular: Rate/Rhythm: regular rate and regular rhythm Heart Sounds: no murmur Gastrointestinal (Abdomen): Inspection/Auscultation: + abdomen distended and normal bowel sounds Percussion/Palpation: + abdomen tender and abdomen soft; no guarding Musculoskeletal: No acute arthritis in any joint Neurologic: moves all extremities; no focal motor deficits Alert, awake and oriented x3. Generally weak without any focal neuro deficit Lymphatic: no cervical or axillary lymphadenopathy Results & Data ([facility]) Vital Signs (Past 12 Hours) Vital Signs Temp Pulse Resp BP Pulse Ox 08/31/19 11:31 36.4 C L 100 H 18 138/82 96 08/31/19 07:20 36.4 C L 104 H 20 145/80 H 97 08/31/19 04:09 36.4 C L 98 H 18 153/81 H 96 Laboratory Results Short CBC 08/30/19 08/31/19 Range/Units 17:01 05:04 WBC 6.25 6.78 (4.8-10.8) K/uL Hgb 11.2 L 12.7 (12.0-16.0) g/dL Hct 33.9 L 39.1 (37-47) % Plt Count 293 479 H D (130-400) K/uL BMP 08/30/19 08/31/19 17:01 05:04 Sodium 141 144 Potassium 3.4 L 3.5 Chloride 112 H 116 H Carbon Dioxide 17 L 19 L BUN 20 H 22 H Creatinine 0.89 0.93 Glucose 135 H 151 H Calcium 8.6 8.3 L Liver Function 08/30/19 Range/Units 17:01 Total Bilirubin 0.7 (0.2-1) mg/dl Direct Bilirubin 0.2 (0-0.2) mg/dl AST 24 (15-37) U/L ALT 33 (12-78) U/L Alkaline Phosphatase 222 H (45-117) U/L Albumin 2.8 L (3.4-5.0) gm/dl Urine 08/30/19 Range/Units 18:15 Urine Color Yellow Urine Appearance Clear (Clear) Urine pH 6.5 (4.5-7.5) Ur Specific Wyatt 1.014 (1.000-1.030) Urine Protein Negative (Negative) Urine Glucose (UA) Negative (Negative) Medications Administered Current Inpatient Medications Heparin Sodium (Porcine) (Heparin Sod 100 Unit/Ml Flush) 5 ml FLUSH PRN PRN PRN Reason: Flush Stop: 09/30/19 02:14 Hydromorphone HCl (Dilaudid) 0.5 mg IV Q3H PRN PRN Reason: Pain Stop: 09/13/19 22:23 Last Admin: 08/31/19 13:42 Dose: 0.5 mg Documented by: Hyoscyamine (Levbid) 0.375 mg PO Q12H PRN PRN Reason: Abdominal Cramping Stop: 09/29/19 22:23 Sodium Chloride (Nss) 500 mls @ 150 mls/hr IV .Q3H20M [facility] Stop: 09/29/19 18:29 Last Admin: 08/31/19 13:42 Dose: 150 mls/hr Documented by: Piperacillin Sod/Tazobactam (Sod 4.5 gm/ Dextrose) 120 mls @ 30 mls/hr IV Q8H [facility]; Protocol Stop: 09/02/19 01:59 Last Infusion: 08/31/19 14:26 Dose: Infused Documented by: Levothyroxine Sodium (Synthroid) 25 mcg PO DAILYBB [facility] Stop: 09/30/19 06:29 Last Admin: 08/31/19 06:16 Dose: 25 mcg Documented by: Miscellaneous Information (Consult) 1 ea N/A UD PRN PRN Reason: Consult Stop: 09/29/19 20:45 Ondansetron HCl (Zofran) 4 mg IV Q6H PRN PRN Reason: Nausea Stop: 09/29/19 22:23 Last Admin: 08/30/19 22:49 Dose: 4 mg Documented by: Polyethylene Glycol (Miralax Powder Packet) 17 gm PO DAILY PRN PRN Reason: Constipation Stop: 09/29/19 22:23 Prochlorperazine (Compazine) 10 mg PO Q6H PRN PRN Reason: Nausea Stop: 09/29/19 22:23 Tramadol HCl (Ultram) 100 mg PO TID PRN PRN Reason: Abdominal Pain Stop: 09/29/19 22:23 Last Admin: 08/31/19 11:51 Dose: 100 mg Documented by: (1) Nausea & vomiting Vomiting type: bilious vomiting Qualified Code(s): R11.14 - Bilious vomiting
--- NOTE | 2019-08-31 18:03 | Electrocardiogram Report ---
Test Reason : Blood Pressure : / mmHG Vent. Rate : 084 BPM Atrial Rate : 084 BPM P-R Int : 088 ms QRS Dur : 070 ms QT Int : 400 ms P-R-T Axes : 002 058 067 degrees QTc Int : 472 ms Sinus rhythm with occasional Premature ventricular complexes Otherwise normal ECG When compared with ECG of 20-FEB-2019 03:19, Premature ventricular complexes are now Present Nonspecific T wave abnormality now evident in Anterior leads Confirmed by Willem Colorado ([id number]) on 08/31/2019 6:03:27 PM Referred By: Shay Robert Confirmed By:Artur Colorado
[2019-08-31] MEDS: HEPARIN SOD 5,000 UNIT/0.5 ML VIAL SQ SCH (21:18)
[2019-09-01] MEDS: PIPERACILLIN/TAZOBACTAM 4.5 GM in DEXTROSE 5% 100 ML IV SCH ×3 (01:01→17:45)
[2019-09-01] MEDS: SODIUM CHLORIDE 0.9% 500 ML IV SCH ×6 (01:01→13:14)
[2019-09-01] MEDS: HYDROmorphone INJ 0.5 MG/0.5 ML SYR IV PRN ×4 (01:09→15:49)
[2019-09-01 05:48] LABS: Hematocrit (blood only) 33.5 % (37-47); Hemoglobin 10.8 g/dL (12.0-16.0); Mean Corpuscular Hemoglobin 30.7 pg (25-34); Mean Corpuscular Hgb Conc 32.2 g/dL (32-36); Mean Corpuscular Volume 95.2 fL (80-100); Mean Platelet Volume 9.1 fL (7.4-10.4); Platelet Count 241 K/uL (130-400); RDW Coefficient of Variation 14.7 % (11.5-14.5); Red Blood Count 3.52 M/uL (4.2-5.4); White Blood Count 2.97 K/uL (4.8-10.8)
[2019-09-01 06:10] LABS: Immature Granulocytes # (auto) 0.07 K/uL (0.00-0.02); Immature Granulocytes % (auto) 2.4 %; Lymphocytes # (auto) 0.49 K/uL (1.2-3.4); Lymphocytes % (auto) 16.5 %; Monocytes # (auto) 0.07 K/uL (0.11-0.59); Monocytes % (auto) 2.4 %; Neutrophils # (auto) 2.34 K/uL (1.4-6.5); Neutrophils % (auto) 78.7 %
[2019-09-01] MEDS: LEVOTHYROXINE SODIUM 25 MCG TABLET PO SCH (06:14)
[2019-09-01 06:22] LABS: BUN Creatinine Ratio 26.3 (10-20); Calcium 7.8 mg/dl (8.5-10.1); Creatinine Clr Calc Pharmacy 62.7 ml/min; Est GFR (African American) 111.2; Est GFR (Non-African American) 95.9; Magnesium 2.6 mg/dl (1.8-2.4); Phosphorus 2.5 mg/dl (2.5-4.9)
[2019-09-01] MEDS: TRAMADOL HCL 50 MG TABLET PO PRN ×2 (07:32→12:48)
[2019-09-01] MEDS: HEPARIN SOD 5,000 UNIT/0.5 ML VIAL SQ SCH ×2 (07:32→22:11)
--- NOTE | 2019-09-01 15:13 | Hospitalist Progress Note ---
Date of Service September 01, 2019 Assessment & Plan (1) Abdominal pain, acute: Admitted with generalized abdominal pain associated with distention and nausea History of metastatic colon cancer with status post colonic stent placed in March of last CT scan did not show any obstruction Pain is reasonably controlled with increasing dose of all TRAM She has been moving her bowel Clinically a bit better today We will continue with clears orally Will advance diet to full liquid and as tolerated Pain is controlled with Ultram (2) Colitis: CT scan of the abdomen pelvis did show colitis involving the cecum, ascending colon and hepatic flexure Will start intravenous Zosyn Clinically better this morning Clinically better (3) Nausea & vomiting: As above No more vomiting but nausea Abdomen remains soft and mildly tender (4) Cancer: Has colon cancer with metastasis to liver and lungs Ongoing chemo Status post colonic stent placement in March of last CT scan did not show any chronic obstruction but did show decrease in the stent Noted to have increased lactic acid on admission Has been improving with intravenous fluid Hypothyroidism Continue replacement DVT prophylaxis Start with subcu heparin CODE STATUS Full Admission and Anticipated Discharge Date Admission Date: August 30, 2019 Subjective 08/31/2019 The patient was seen and examined in medical floor in presence of the family members She has been complaining of more abdominal pain associated with nausea She moved her bowels this morning and did not have any vomiting 09/01/2019 Patient was seen and examined in medical floor She has been feeling a lot better and denies any abdominal distention, nausea and the pain is controlled with medication She has been moving her bowel We will advance diet to full liquid Physical Exam Physical Exam: Lying in bed with minimal discomfort secondary to abdominal pain Constitutional: + ill appearing and + thin; no acute distress Eyes: PERRL, conjunctivae normal, anicteric sclerae ENMT: external ear and nose normal, oropharynx normal Neck: trachea midline, no thyromegaly Respiratory: normal respiratory effort; no respiratory distress Auscultation: lungs clear to auscultation bilaterally Cardiovascular: Rate/Rhythm: regular rate and regular rhythm Heart Sounds: no murmur Gastrointestinal (Abdomen): Inspection/Auscultation: normal bowel sounds Percussion/Palpation: + abdomen tender and abdomen soft; no guarding Musculoskeletal: No acute arthritis involving any joints Neurologic: moves all extremities; no focal motor deficits Lymphatic: no cervical or axillary lymphadenopathy Results & Data ([facility]) Vital Signs (Past 12 Hours) Vital Signs Temp Pulse Resp BP Pulse Ox 09/01/19 07:21 36.7 C 86 18 160/74 H 95 09/01/19 03:16 36.6 C 86 18 158/77 H 96 Laboratory Results Short CBC 09/01/19 Range/Units 05:39 WBC 2.97 L (4.8-10.8) K/uL Hgb 10.8 L (12.0-16.0) g/dL Hct 33.5 L (37-47) % Plt Count 241 (130-400) K/uL BMP 09/01/19 05:39 Sodium 142 Potassium 4.0 Chloride 118 H Carbon Dioxide 20 L BUN 15 Creatinine 0.57 L D Glucose 99 Calcium 7.8 L Medications Administered Current Inpatient Medications Heparin Sodium (Porcine) (Heparin Sod 100 Unit/Ml Flush) 5 ml FLUSH PRN PRN PRN Reason: Flush Stop: 09/30/19 02:14 Heparin Sodium (Porcine) (Heparin Sodium (Porcine)) 5,000 units SQ Q12 [facility] Stop: 09/30/19 20:59 Last Admin: 09/01/19 07:32 Dose: 5,000 units Documented by: Hydromorphone HCl (Dilaudid) 0.5 mg IV Q3H PRN PRN Reason: Pain Stop: 09/13/19 22:23 Last Admin: 09/01/19 10:54 Dose: 0.5 mg Documented by: Hyoscyamine (Levbid) 0.375 mg PO Q12H PRN PRN Reason: Abdominal Cramping Stop: 09/29/19 22:23 Sodium Chloride (Nss) 500 mls @ 150 mls/hr IV .Q3H20M [facility] Stop: 09/29/19 18:29 Last Infusion: 09/01/19 14:48 Dose: 150 mls/hr Documented by: Piperacillin Sod/Tazobactam (Sod 4.5 gm/ Dextrose) 120 mls @ 30 mls/hr IV Q8H [facility]; Protocol Stop: 09/02/19 01:59 Last Infusion: 09/01/19 14:20 Dose: Infused Documented by: Levothyroxine Sodium (Synthroid) 25 mcg PO DAILYBB [facility] Stop: 09/30/19 06:29 Last Admin: 09/01/19 06:14 Dose: 25 mcg Documented by: Miscellaneous Information (Consult) 1 ea N/A UD PRN PRN Reason: Consult Stop: 09/29/19 20:45 Ondansetron HCl (Zofran) 4 mg IV Q6H PRN PRN Reason: Nausea Stop: 09/29/19 22:23 Last Admin: 08/30/19 22:49 Dose: 4 mg Documented by: Polyethylene Glycol (Miralax Powder Packet) 17 gm PO DAILY PRN PRN Reason: Constipation Stop: 09/29/19 22:23 Prochlorperazine (Compazine) 10 mg PO Q6H PRN PRN Reason: Nausea Stop: 09/29/19 22:23 Tramadol HCl (Ultram) 100 mg PO TID PRN PRN Reason: Abdominal Pain Stop: 09/29/19 22:23 Last Admin: 09/01/19 12:48 Dose: 100 mg Documented by: (1) Nausea & vomiting Vomiting type: bilious vomiting Qualified Code(s): R11.14 - Bilious vomiting
[2019-09-01] MEDS: SODIUM CHLORIDE 0.9% 1000ML 1,000 ML IV SCH ×2 (15:46→23:34)
[2019-09-01] MEDS: PROCHLORPERAZINE MALEATE 10 MG TAB PO PRN (16:31)
[2019-09-02] MEDS: HYDROmorphone INJ 0.5 MG/0.5 ML SYR IV PRN ×3 (05:38→13:16)
[2019-09-02] MEDS: LEVOTHYROXINE SODIUM 25 MCG TABLET PO SCH (05:40)
[2019-09-02] MEDS: PROCHLORPERAZINE MALEATE 10 MG TAB PO PRN (05:59)
[2019-09-02 06:58] LABS: Creatinine Clr Calc Pharmacy 81.6 ml/min; Est GFR (African American) 120.2; Est GFR (Non-African American) 103.7
[2019-09-02] MEDS: TRAMADOL HCL 50 MG TABLET PO PRN ×2 (07:24→18:20)
[2019-09-02] MEDS: HEPARIN SOD 5,000 UNIT/0.5 ML VIAL SQ SCH ×2 (07:25→22:28)
[2019-09-02] MEDS: SODIUM CHLORIDE 0.9% 1000ML 1,000 ML IV SCH ×3 (07:25→22:28)
--- NOTE | 2019-09-02 10:20 | Gastrointestinal Consultation ---
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 - FL diet; when advanced, please make sure she's on low fiber/residue diet (stent compatible diet) - Cipro/Flagyl IV antibx - Protonix 40mg PO daily - CT images reviewed; significant amt of stool in colon and rectum area. ? diarrhea is overflow related. Will add Miralax 17g PO daily - Check stool cx and Cdiff Attg add: I interviewed and examined pt, reviewed chart and labs. Pt with chronic abd pain, typically with 1 small volume BM daily without sense of incomplete evacuation, on chemo but no h/o diarrhea, now admit with worsening lower abd pain and increased stool output, with 2 large volume liquid BM's. Abd is mild distended, non tender on my exam. CT reviewed, labs reviewed. A/P: DDX = gastroenteritis, overflow diarrhea, chemo-induced diarrhea. OK for empiric abx given lactate, consider flex sig to eval stent if slow to improve. History of Present Illness Reason for Consultation: Colitis, hx of colon ca Requesting Physician: Dr. Oxana Camarena Attending Physician: Dr. 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 She is currently on chemotherapy, last dose on . She denies associated fever, chills, rectal bleeding. Denies sick contact, raw/undercooked food, antibx exposure. On eval, labs showed increased LA 4.2. CT abd/pelvis w contrast showed: 1. Debris-filled patent stent of the sigmoid colon. 2. Wall thickening of the cecum, ascending colon and hepatic flexure is suggestive of a nonspecific colitis. 3. Trace abdominal pelvic ascites, likely reactive. 4. No bowel obstruction or pneumoperitoneum. 5. Moderate to extensive fecal retention. 6. Slightly increased size of several hepatic lesions suggestive of progressive hepatic metastasis. 7. 5 mm solid nodule the basal left lower lobe has slightly increased in size from comparison. Attention at follow-up recommended to exclude pulmonary metastasis. Pt examined sitting up in bed, comfortable. Tolerating FL diet this AM. She is still c/o RLQ abd pain and mild nausea. Is passing loose stools w/o rectal bleeding. She is also passing flatus. Last colonoscopy in 03/2019 showed patent stent w minimal tumor ingrowth Allergies Allergy/AdvReac Type Severity Reaction Status Date / Time alendronate sodium Allergy Mild FLU LIKE Verified 08/30/19 18:05 SYMPTOMS Antifungal - Imidazole Allergy Mild SWELLING Verified 08/30/19 18:05 aspirin Allergy Mild COUGHING Verified 08/30/19 18:05 Sulfa (Sulfonamide AdvReac Mild NAUSEA Verified 08/30/19 18:05 Antibiotics) Home Medications Home Medications Medication Instructions Recorded Confirmed Type cholecalciferol (vitamin D3) 1,000 unit PO QDL 04/23/18 08/30/19 History [Vitamin D3] levothyroxine 25 mcg PO QAM 04/23/18 08/30/19 History tramadol 50 - 100 mg PO TID PRN 04/23/18 08/30/19 History ondansetron HCl [Zofran] 8 mg PO Q8H PRN 05/20/18 08/30/19 History calcium carbonate [Calcium 600] 600 mg PO BID 08/30/19 08/30/19 History hyoscyamine sulfate 0.375 mg PO Q12H PRN 08/30/19 08/30/19 History prochlorperazine maleate 10 mg PO Q6H PRN 08/30/19 08/30/19 History Patient History Medical History Asthma no inhalers Cancer diagnosed 03/14/2018--COLON CANCER with METS TO LUNG/LIVER--currently receiving chemo Hx of renal calculi Hypothyroid MVP (mitral valve prolapse) MINOR Osteoporosis Pes cavus RT/LEFT FOOT Surgical History H/O colonoscopy last colonoscopy 03/14/18 had stent placed at tumor site History of tooth extraction History of vascular access device right chest wall History of wisdom tooth extraction Family History Sister Family history of diabetes mellitus Brother Family history of diabetes mellitus Other No family history of adverse response to anesthesia Social History Preferred Language: Georgian Communication Ability: Effective Visual Impairment: No Limitations Hearing Ability: Normal 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 Beliefs That Will Affect Care: None marital status: Current Living Situation: Spouse Other Information That Helps Us Care for You: No Feels Safe at Home: Yes Safety Concerns: Feels Safe At This Time Smoking Status: Never smoker Do You Dip or Chew Tobacco: No ; Second Hand Exposure: Yes ; Hx Alcohol Use: No Hx Substance Use: No Review of Systems Review of Systems: All systems reviewed & are unremarkable except as noted in HPI & below Physical Exam Constitutional: + thin, well groomed, cooperative and comfortable Eyes: PERRL, conjunctivae normal, anicteric sclerae ENMT: external ear and nose normal, oropharynx normal Respiratory: normal respiratory effort, lungs clear to auscultation Cardiovascular: RRR, no murmur, no edema Gastrointestinal (Abdomen): Inspection/Auscultation: + hypoactive bowel sounds Percussion/Palpation: + abdomen tender (RLQ) and abdomen soft Skin: no rashes, warm and dry no jaundice Psychiatric: A+Ox3, euthymic affect Lymphatic: no lymphedema Results & Data ([facility]) Vital Signs (Past 12 Hours) Vital Signs Temp Pulse Resp BP Pulse Ox 09/02/19 07:28 37.0 C 91 H 18 132/72 96 09/01/19 23:43 36.9 C 86 18 155/71 H 97
[2019-09-02] MEDS: POLYETHYLENE (MIRALAX) 17 GM PACK PO SCH (11:04)
[2019-09-02] MEDS: metroNIDAZOLE 500 MG/100 ML BAG IV SCH ×2 (11:05→18:17)
[2019-09-02] MEDS: CIPROFLOXACIN 400 MG/200 ML BAG IV SCH ×2 (11:05→22:28)
--- NOTE | 2019-09-02 13:54 | Hospitalist Progress Note ---
Date of Service September 02, 2019 Assessment & Plan (1) Abdominal pain, acute: Admitted with generalized abdominal pain associated with distention and nausea History of metastatic colon cancer with status post colonic stent placed in March of last year CT scan did not show any obstruction Pain is reasonably controlled with increasing dose of all TRAM She has been moving her bowel Clinically a bit better today We will continue with clears orally Will advance diet to full liquid and as tolerated Pain is controlled with Ultram Still complaining of significant abdominal pain with some distention without any nausea and/or vomiting Has been moving her bowels We will get PT and OT evaluation (2) Colitis: CT scan of the abdomen pelvis did show colitis involving the cecum, ascending colon and hepatic flexure Will start intravenous Zosyn Clinically better this morning Clinically better C. difficile has been negative,stool culture is pending Appreciate GI input Antibiotics have been changed to IV Cipro and Flagyl (3) Nausea & vomiting: As above No more vomiting but nausea Abdomen remains soft and mildly tender Better (4) Cancer: Has colon cancer with metastasis to liver and lungs Ongoing chemo Status post colonic stent placement in March of last year CT scan did not show any chronic obstruction but did show decrease in the stent Noted to have increased lactic acid on admission Has been improving with intravenous fluid Hypothyroidism Continue replacement DVT prophylaxis Start with subcu heparin CODE STATUS Full Admission and Anticipated Discharge Date Admission Date: August 30, 2019 Subjective 08/31/2019 The patient was seen and examined in medical floor in presence of the family members She has been complaining of more abdominal pain associated with nausea She moved her bowels this morning and did not have any vomiting 09/01/2019 Patient was seen and examined in medical floor She has been feeling a lot better and denies any abdominal distention, nausea and the pain is controlled with medication She has been moving her bowel We will advance diet to full liquid 09/02/2019 Patient was seen and examined in medical floor She complains to have some diarrhea and abdominal pain is persistent Denies any fever and/or chills Review of Systems Review of Systems: All systems reviewed and are unremarkable except as noted below Gastrointestinal: + abdominal pain, + bloating and + nausea; no vomiting Physical Exam Physical Exam: Lying in bed with minimal discomfort secondary to abdominal pain Constitutional: + ill appearing and + thin; no acute distress Eyes: PERRL, conjunctivae normal, anicteric sclerae ENMT: external ear and nose normal, oropharynx normal Neck: trachea midline, no thyromegaly Respiratory: normal respiratory effort; no respiratory distress Auscultation: lungs clear to auscultation bilaterally Cardiovascular: Rate/Rhythm: regular rate and regular rhythm Heart Sounds: no murmur Gastrointestinal (Abdomen): Inspection/Auscultation: + abdomen distended and normal bowel sounds (Decreased) Percussion/Palpation: + abdomen tender and abdomen soft; no guarding Neurologic: moves all extremities; no focal motor deficits Lymphatic: no cervical or axillary lymphadenopathy Results & Data ([facility]) Vital Signs (Past 12 Hours) Vital Signs Temp Pulse Resp BP Pulse Ox 09/02/19 07:28 37.0 C 91 H 18 132/72 96 Laboratory Results BMP 09/02/19 05:17 Creatinine 0.45 L Medications Administered Current Inpatient Medications Heparin Sodium (Porcine) (Heparin Sod 100 Unit/Ml Flush) 5 ml FLUSH PRN PRN PRN Reason: Flush Stop: 09/30/19 02:14 Heparin Sodium (Porcine) (Heparin Sodium (Porcine)) 5,000 units SQ Q12 [facility] Stop: 09/30/19 20:59 Last Admin: 09/02/19 07:25 Dose: 5,000 units Documented by: Hydromorphone HCl (Dilaudid) 0.5 mg IV Q3H PRN PRN Reason: Pain Stop: 09/13/19 22:23 Last Admin: 09/02/19 13:16 Dose: 0.5 mg Documented by: Hyoscyamine (Levbid) 0.375 mg PO Q12H PRN PRN Reason: Abdominal Cramping Stop: 09/29/19 22:23 Sodium Chloride (Nss 1000ml) 1,000 mls @ 150 mls/hr IV .Q6H40M [facility] Stop: 10/01/19 15:29 Last Infusion: 09/02/19 12:50 Dose: 150 mls/hr Documented by: Metronidazole (Flagyl) 500 mg in 100 mls @ 100 mls/hr IV Q8H [facility]; Protocol Stop: 09/12/19 10:14 Last Infusion: 09/02/19 12:50 Dose: Infused Documented by: Ciprofloxacin (Cipro) 400 mg in 200 mls @ 100 mls/hr IV Q12H [facility]; Protocol Stop: 09/12/19 10:14 Last Infusion: 09/02/19 13:11 Dose: Infused Documented by: Levothyroxine Sodium (Synthroid) 25 mcg PO DAILYBB [facility] Stop: 09/30/19 06:29 Last Admin: 09/02/19 05:40 Dose: 25 mcg Documented by: Ondansetron HCl (Zofran) 4 mg IV Q6H PRN PRN Reason: Nausea Stop: 09/29/19 22:23 Last Admin: 08/30/19 22:49 Dose: 4 mg Documented by: Pantoprazole Sodium (Protonix) 40 mg PO QAM [facility] Stop: 09/07/19 08:59 Polyethylene Glycol (Miralax Powder Packet) 17 gm PO DAILY PRN PRN Reason: Constipation Stop: 09/29/19 22:23 Polyethylene Glycol (Miralax Powder Packet) 17 gm PO DAILY [facility] Stop: 10/02/19 10:04 Last Admin: 09/02/19 11:04 Dose: Not Given Documented by: Prochlorperazine (Compazine) 10 mg PO Q6H PRN PRN Reason: Nausea Stop: 09/29/19 22:23 Last Admin: 09/02/19 05:59 Dose: 10 mg Documented by: Tramadol HCl (Ultram) 100 mg PO TID PRN PRN Reason: Abdominal Pain Stop: 09/29/19 22:23 Last Admin: 09/02/19 07:24 Dose: 100 mg Documented by: (1) Nausea & vomiting Vomiting type: bilious vomiting Qualified Code(s): R11.14 - Bilious vomiting
[2019-09-03] MEDS: metroNIDAZOLE 500 MG/100 ML BAG IV SCH ×2 (03:27→10:45)
[2019-09-03] MEDS: LEVOTHYROXINE SODIUM 25 MCG TABLET PO SCH (05:51)
[2019-09-03] MEDS: SODIUM CHLORIDE 0.9% 1000ML 1,000 ML IV SCH (05:51)
[2019-09-03 05:53] LABS: Hematocrit (blood only) 29.3 % (37-47); Hemoglobin 9.5 g/dL (12.0-16.0); Mean Corpuscular Hemoglobin 30.2 pg (25-34); Mean Corpuscular Hgb Conc 32.4 g/dL (32-36); Mean Platelet Volume 9.7 fL (7.4-10.4); Platelet Count 230 K/uL (130-400); RDW Coefficient of Variation 14.4 % (11.5-14.5); RDW Standard Deviation 48.4 fL (36.4-46.3); Red Blood Count 3.15 M/uL (4.2-5.4); White Blood Count 1.89 K/uL (4.8-10.8)
[2019-09-03 06:20] LABS: Basophils % (auto) 0.5 %; Eosinophils % (auto) 11.6 %; Immature Granulocytes % (auto) 1.1 %; Monocytes % (auto) 4.2 %; Neutrophils % (auto) 37.6 %
[2019-09-03 06:21] LABS: Basophils # (auto) 0.01 K/uL (0-0.2); Dohle Bodies 2+; Eosinophils # (auto) 0.22 K/uL (0-0.5); Immature Granulocytes # (auto) 0.02 K/uL (0.00-0.02); Lymphocytes # (auto) 0.85 K/uL (1.2-3.4); Monocytes # (auto) 0.08 K/uL (0.11-0.59); Neutrophils # (auto) 0.71 K/uL (1.4-6.5); Toxic Granulation 1+
[2019-09-03 06:42] LABS: BUN Creatinine Ratio 8.8 (10-20); Calcium 7.4 mg/dl (8.5-10.1); Creatinine Clr Calc Pharmacy 63.3 ml/min; Est GFR (African American) 109.3; Est GFR (Non-African American) 94.3; Magnesium 1.9 mg/dl (1.8-2.4); Potassium 2.3 mmol/L (3.5-5.1)
[2019-09-03] MEDS ORDERED: POTASSIUM CHLORIDE 20 MEQ TABCR PO STA (07:21)
[2019-09-03] MEDS: NSS + 20MEQ KCL 20 MEQ/1,000 ML BAG IV SCH ×2 (07:44→19:06)
--- NOTE | 2019-09-03 08:27 | XRay Report ---
CHEST AND ABDOMEN 2 VIEWS HISTORY: eval for stool burden vs obstruction. Generalized abdominal pain. COMPARISON: Abdomen and pelvis CT 08/30/2019. FINDINGS: No pneumothorax. No pleural effusions. The heart is normal in size. Right Port-A-Cath termi nates in the SVC. There is mild diffuse interstitial thickening. There is patchy density within the l eft lung base no pneumoperitoneum. No pneumatosis. A stable sigmoid stent is again noted. There is ga s within the rectum. Nondilated gas and fluid-filled colon. No dilated loops of small bowel to sugges t an obstruction. No renal or ureteral calculi. IMPRESSION: 1. Patchy left basilar airspace opacities. This may represent a developing pneumonitis. 2. The distal sigmoid stent is again noted. There is gas within the rectum suggesting stent patency. 3. Nondilated gas and fluid-filled colon. No evidence for bowel obstruction. ACT 112: Negative or not required by law. Electronically signed by: Schuyler Conrad M.D. 09/03/2019 8:26 AM
[2019-09-03] MEDS: POLYETHYLENE (MIRALAX) 17 GM PACK PO SCH (08:33)
[2019-09-03] MEDS: HEPARIN SOD 5,000 UNIT/0.5 ML VIAL SQ SCH ×2 (08:34→21:19)
[2019-09-03] MEDS: PANTOprazole 40 MG TAB PO SCH (08:34)
[2019-09-03 10:11] LABS: Phosphorus 0.8 mg/dl (2.5-4.9)
[2019-09-03] MEDS ORDERED: POTASSIUM PHOS 3 MMOL/1 ML INFUSION IV STA (10:37)
[2019-09-03] MEDS: CIPROFLOXACIN 400 MG/200 ML BAG IV SCH (10:45)
[2019-09-03] MEDS ORDERED: POTASSIUM PHOSPHATE 40 MMOL in SODIUM CHLORIDE 0.9% 1000ML 1,000 ML IV ONE (11:00)
--- NOTE | 2019-09-03 12:20 | Gastroenterology Progress Note ---
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 She is having diarrhea. CT showed + moderate stool burden , stent is patent; AXR today shows just gas throughout the colon - Neutropenic precautions - Electrolyte repletions per primary team. Make sure K level is >4. - FL diet; when advanced, please make sure she's on low fiber/residue diet (stent compatible diet) - DC abx - Protonix 40mg PO daily - Miralax 17g PO daily ; pt ok to refuse if she's having too loose stools - F/U stool cx results - Defer endoscopic eval as she's currently neutropenic Attg add: I interviewed and examined pt, reviewed chart and labs. Pt with continued diarrhea, abd pain improved. Labs, imaging reviewed. The stool that was seen yesterday throughout her colon appears resolved. Imaging from today suggests chemo related diarrhea, rather than overflow. Will follow for now, defer scope as stent appears patent by imaging. Admission and Anticipated Discharge Date Admission Date: August 30, 2019 Subjective Pt reports multiple episodes of loose stools. + nocturnal awakening. Denies blood in stools. Denies abd pain, n/v. Tolerating FL diet Labs and imaging studies review. + Neutropenia, Cdiff negative. Stool cx pending. K 2.3, Phosphorus 0.8. Chest/abd xray: 1. Patchy left basilar airspace opacities. This may represent a developing pneumonitis. 2. The distal sigmoid stent is again noted. There is gas within the rectum suggesting stent patency. 3. Nondilated gas and fluid-filled colon. No evidence for bowel obstruction. Review of Systems Review of Systems: All systems reviewed & are unremarkable except as noted in HPI & below Physical Exam Constitutional: + thin, well groomed, cooperative and comfortable Eyes: PERRL, conjunctivae normal, anicteric sclerae ENMT: external ear and nose normal, oropharynx normal Respiratory: normal respiratory effort, lungs clear to auscultation Cardiovascular: RRR, no murmur, no edema Gastrointestinal (Abdomen): Inspection/Auscultation: + hypoactive bowel sounds Percussion/Palpation: abdomen soft; abdomen nontender (RLQ) Skin: no rashes, warm and dry no jaundice Psychiatric: A+Ox3, euthymic affect Lymphatic: no lymphedema Results & Data ([facility]) Vital Signs (Past 12 Hours) Vital Signs Temp Pulse Resp BP Pulse Ox 09/03/19 07:43 36.5 C 70 18 135/65 97
[2019-09-03] MEDS: TRAMADOL HCL 50 MG TABLET PO PRN (16:25)
--- NOTE | 2019-09-03 18:38 | Hospitalist Progress Note ---
Date of Service September 03, 2019 Assessment & Plan (1) Abdominal pain, acute: Admitted with generalized abdominal pain associated with distention and nausea History of metastatic colon cancer with status post colonic stent placed in March of last year CT scan did not show any obstruction Pain is reasonably controlled with increasing dose of all TRAM She has been moving her bowel Clinically a bit better today We will continue with clears orally Will advance diet to full liquid and as tolerated Pain is controlled with Ultram Still complaining of significant abdominal pain with some distention without any nausea and/or vomiting Has been moving her bowels Abdominal pain is better and without any distention (2) Colitis: CT scan of the abdomen pelvis did show colitis involving the cecum, ascending colon and hepatic flexure Not sure if the colitis is due to chemotherapy Will start intravenous Zosyn and that was changed to intravenous Flagyl and Cipro C. difficile has been negative,stool culture is negative Appreciate GI input Antibiotics have been changed to IV Cipro and Flagyl Clinically better (3) Nausea & vomiting: As above No more vomiting but nausea Abdomen remains soft and mildly tender Has had diarrhea and is better Electrolyte imbalance Noted to have hypokalemia and severe hypophosphatemia Likely secondary to bowel loss and poor intake Replaced We will monitor (4) Cancer: Has colon cancer with metastasis to liver and lungs Ongoing chemo Status post colonic stent placement in March of last year CT scan did not show any chronic obstruction but did show decrease in the stent No signs of obstruction Noted to be neutropenic likely secondary to chemo Will put her on neutropenic precautions Has severe malnutrition Secondary to colon cancer, anorexia and recent colitis Has been started to take regular food Noted to have increased lactic acid on admission Has been improving with intravenous fluid Hypothyroidism Continue replacement DVT prophylaxis Start with subcu heparin CODE STATUS Full Admission and Anticipated Discharge Date Admission Date: August 30, 2019 Subjective 08/31/2019 The patient was seen and examined in medical floor in presence of the family members She has been complaining of more abdominal pain associated with nausea She moved her bowels this morning and did not have any vomiting 09/01/2019 Patient was seen and examined in medical floor She has been feeling a lot better and denies any abdominal distention, nausea and the pain is controlled with medication She has been moving her bowel We will advance diet to full liquid 09/02/2019 Patient was seen and examined in medical floor She complains to have some diarrhea and abdominal pain is persistent Denies any fever and/or chills 09/03/2019 Patient was seen and examined in medical floor She looks little bit better today Denies any abdominal pain and/or distention Continues to have loose stool Review of Systems Review of Systems: All systems reviewed and are unremarkable except as noted below Gastrointestinal: + abdominal pain, + bloating and + nausea; no vomiting Physical Exam Physical Exam: Lying in bed with minimal discomfort secondary to abdominal pain Constitutional: + ill appearing and + thin; no acute distress Eyes: PERRL, conjunctivae normal, anicteric sclerae ENMT: external ear and nose normal, oropharynx normal Neck: trachea midline, no thyromegaly Respiratory: normal respiratory effort; no respiratory distress Auscultation: lungs clear to auscultation bilaterally Cardiovascular: Rate/Rhythm: regular rate and regular rhythm Heart Sounds: no murmur Gastrointestinal (Abdomen): Inspection/Auscultation: normal bowel sounds; abdomen not distended Percussion/Palpation: + abdomen tender (Minimally tender) and abdomen soft; no guarding Musculoskeletal: No acute arthritis involving any joints Neurologic: moves all extremities; no focal motor deficits Lymphatic: no cervical or axillary lymphadenopathy Results & Data ([facility]) Vital Signs (Past 12 Hours) Vital Signs Temp Pulse Resp BP BP Pulse Ox 09/03/19 15:33 36.5 C 78 18 161/79 H 99 09/03/19 07:43 36.5 C 70 18 135/65 97 Laboratory Results Short CBC 09/03/19 Range/Units 05:40 WBC 1.89 L (4.8-10.8) K/uL Hgb 9.5 L (12.0-16.0) g/dL Hct 29.3 L (37-47) % Plt Count 230 (130-400) K/uL BMP 09/03/19 05:40 Sodium 141 Potassium 2.3 L* Chloride 114 H Carbon Dioxide 21 BUN 5 L Creatinine 0.60 Glucose 76 Calcium 7.4 L Medications Administered Current Inpatient Medications Heparin Sodium (Porcine) (Heparin Sod 100 Unit/Ml Flush) 5 ml FLUSH PRN PRN PRN Reason: Flush Stop: 09/30/19 02:14 Heparin Sodium (Porcine) (Heparin Sodium (Porcine)) 5,000 units SQ Q12 [facility] Stop: 09/30/19 20:59 Last Admin: 09/03/19 08:34 Dose: 5,000 units Documented by: Hydromorphone HCl (Dilaudid) 0.5 mg IV Q3H PRN PRN Reason: Pain Stop: 09/13/19 22:23 Last Admin: 09/02/19 13:16 Dose: 0.5 mg Documented by: Hyoscyamine (Levbid) 0.375 mg PO Q12H PRN PRN Reason: Abdominal Cramping Stop: 09/29/19 22:23 Metronidazole (Flagyl) 500 mg in 100 mls @ 100 mls/hr IV Q8H [facility]; Protocol Stop: 09/12/19 10:14 Last Infusion: 09/03/19 11:53 Dose: Infused Documented by: Ciprofloxacin (Cipro) 400 mg in 200 mls @ 100 mls/hr IV Q12H [facility]; Protocol Stop: 09/12/19 10:14 Last Infusion: 09/03/19 12:48 Dose: Infused Documented by: Potassium Chloride/Sodium Chloride (Normal Saline W/20 Meq Kcl) 20 meq in 1,000 mls @ 100 mls/hr IV .Q10H [facility] Stop: 10/03/19 07:29 Last Infusion: 09/03/19 11:53 Dose: 100 mls/hr Documented by: Potassium Phosphate 40 mmol/ (Sodium Chloride) 1,013.3333 mls @ 100 mls/hr IV ONE ONE Stop: 09/03/19 21:07 Last Admin: 09/03/19 12:58 Dose: 100 mls/hr Documented by: Levothyroxine Sodium (Synthroid) 25 mcg PO DAILYBB [facility] Stop: 09/30/19 06:29 Last Admin: 09/03/19 05:51 Dose: 25 mcg Documented by: Ondansetron HCl (Zofran) 4 mg IV Q6H PRN PRN Reason: Nausea Stop: 09/29/19 22:23 Last Admin: 08/30/19 22:49 Dose: 4 mg Documented by: Pantoprazole Sodium (Protonix) 40 mg PO QAM [facility] Stop: 09/07/19 08:59 Last Admin: 09/03/19 08:34 Dose: 40 mg Documented by: Polyethylene Glycol (Miralax Powder Packet) 17 gm PO DAILY PRN PRN Reason: Constipation Stop: 09/29/19 22:23 Polyethylene Glycol (Miralax Powder Packet) 17 gm PO DAILY [facility] Stop: 10/02/19 10:04 Last Admin: 09/03/19 08:33 Dose: Not Given Documented by: Prochlorperazine (Compazine) 10 mg PO Q6H PRN PRN Reason: Nausea Stop: 09/29/19 22:23 Last Admin: 09/02/19 05:59 Dose: 10 mg Documented by: Tramadol HCl (Ultram) 100 mg PO TID PRN PRN Reason: Abdominal Pain Stop: 09/29/19 22:23 Last Admin: 09/03/19 16:25 Dose: 100 mg Documented by: (1) Nausea & vomiting Vomiting type: bilious vomiting Qualified Code(s): R11.14 - Bilious vomiting
[2019-09-04] MEDS: NSS + 20MEQ KCL 20 MEQ/1,000 ML BAG IV SCH (04:40)
[2019-09-04 06:25] LABS: Hematocrit (blood only) 24.7 % (37-47); Hemoglobin 8.2 g/dL (12.0-16.0); Mean Corpuscular Hemoglobin 30.4 pg (25-34); Mean Corpuscular Hgb Conc 33.2 g/dL (32-36); Mean Corpuscular Volume 91.5 fL (80-100); Mean Platelet Volume 9.6 fL (7.4-10.4); Platelet Count 173 K/uL (130-400); RDW Coefficient of Variation 14.3 % (11.5-14.5); RDW Standard Deviation 47.7 fL (36.4-46.3); White Blood Count 1.26 K/uL (4.8-10.8)
[2019-09-04] MEDS: LEVOTHYROXINE SODIUM 25 MCG TABLET PO SCH (06:31)
--- NOTE | 2019-09-04 06:38 | Hospitalist Progress Note ---
Date of Service September 04, 2019 Assessment & Plan Admission and Anticipated Discharge Date Admission Date: August 30, 2019 Results & Data ([facility]) Vital Signs (Past 12 Hours) Vital Signs Temp Pulse Resp BP BP Pulse Ox 09/04/19 04:01 36.4 C L 82 16 159/83 H 98 09/03/19 23:24 37.1 C 86 16 133/72 98 09/03/19 20:35 36.6 C 86 18 160/75 H 99 Laboratory Results 09/04/19 09/04/19 09/03/19 Range/Units 05:26 05:26 05:40 WBC 1.26 L (4.8-10.8) K/uL RBC 2.70 L (4.2-5.4) M/uL Hgb 8.2 L (12.0-16.0) g/dL Hct 24.7 L (37-47) % MCV 91.5 (80-100) fL MCH 30.4 (25-34) pg MCHC 33.2 (32-36) g/dL RDW Std Deviation 47.7 H (36.4-46.3) fL RDW Coeff of Michele 14.3 (11.5-14.5) % Plt Count 173 (130-400) K/uL MPV 9.6 (7.4-10.4) fL Immature Gran % (Auto) 2.4 % Neut % (Auto) 38.1 % Lymph % (Auto) 36.5 % Dent % (Auto) 9.5 % Eos % (Auto) 13.5 % Baso % (Auto) 0.0 % Immature Gran # (Auto) 0.03 H (0.00-0.02) K/uL Neut # (Auto) 0.48 L* (1.4-6.5) K/uL Lymph # (Auto) 0.46 L (1.2-3.4) K/uL Dent # (Auto) 0.12 (0.11-0.59) K/uL Eos # (Auto) 0.17 (0-0.5) K/uL Baso # (Auto) 0.00 (0-0.2) K/uL Hypersegmented Neuts Occasional Toxic Granulation 1+ Dohle Bodies 1+ Sodium 143 (136-145) mmol/L Potassium 3.2 L D (3.5-5.1) mmol/L Chloride 116 H (98-107) mmol/L Carbon Dioxide 23 (21-32) mmol/L Anion Gap 4.0 (3-11) BUN 1 L (7-18) mg/dl Creatinine 0.45 L (0.6-1.2) mg/dl Est Cr Clr Drug Dosing 81.4 ml/min Est GFR ( Amer) 120.2 Est GFR (Non-Af Amer) 103.7 BUN/Creatinine Ratio 2.8 L (10-20) Glucose 100 H (70-99) mg/dl Calcium 7.2 L (8.5-10.1) mg/dl Phosphorus 1.8 L D 0.8 L* (2.5-4.9) mg/dl Magnesium 1.8 (1.8-2.4) mg/dl Total Bilirubin 0.4 (0.2-1) mg/dl AST 25 (15-37) U/L ALT 26 (12-78) U/L Alkaline Phosphatase 205 H (45-117) U/L Total Protein 4.6 L (6.4-8.2) gm/dl Albumin 1.8 L (3.4-5.0) gm/dl Globulin 2.8 (2.5-4.0) gm/dl Albumin/Globulin Ratio 0.6 L (0.9-2)
[2019-09-04 06:48] LABS: Dohle Bodies 1+; Eosinophils # (auto) 0.17 K/uL (0-0.5); Eosinophils % (auto) 13.5 %; Immature Granulocytes # (auto) 0.03 K/uL (0.00-0.02); Immature Granulocytes % (auto) 2.4 %; Lymphocytes # (auto) 0.46 K/uL (1.2-3.4); Lymphocytes % (auto) 36.5 %; Monocytes # (auto) 0.12 K/uL (0.11-0.59); Monocytes % (auto) 9.5 %; Neutrophils # (auto) 0.48 K/uL (1.4-6.5); Neutrophils % (auto) 38.1 %; Toxic Granulation 1+
[2019-09-04 06:59] LABS: Albumin Level 1.8 gm/dl (3.4-5.0); BUN Creatinine Ratio 2.8 (10-20); Calcium 7.2 mg/dl (8.5-10.1); Creatinine Clr Calc Pharmacy 81.4 ml/min; Est GFR (African American) 120.2; Est GFR (Non-African American) 103.7; Magnesium 1.8 mg/dl (1.8-2.4); Potassium 3.2 mmol/L (3.5-5.1)
[2019-09-04 07:03] LABS: Albumin Globulin Ratio 0.6 (0.9-2); Bilirubin,Total 0.4 mg/dl (0.2-1); Globulin 2.8 gm/dl (2.5-4.0); Phosphorus 1.8 mg/dl (2.5-4.9); Total Protein 4.6 gm/dl (6.4-8.2)
[2019-09-04] MEDS ORDERED: POTASSIUM PHOS 3 MMOL/1 ML INFUSION IV STA (07:25)
[2019-09-04] MEDS ORDERED: POTASSIUM CHLORIDE 20 MEQ TABCR PO STA (07:28)
[2019-09-04] MEDS ORDERED: MAGNESIUM SULFATE / D5W 1 GM/100 ML BAG IV ONE (07:28)
[2019-09-04] MEDS ORDERED: POTASSIUM PHOSPHATE 21 MMOL in SODIUM CHLORIDE 0.9% 500 ML IV SCH (07:45)
[2019-09-04] MEDS: TRAMADOL HCL 50 MG TABLET PO PRN (08:21)
[2019-09-04] MEDS: POLYETHYLENE (MIRALAX) 17 GM PACK PO SCH (08:23)
[2019-09-04] MEDS: HEPARIN SOD 5,000 UNIT/0.5 ML VIAL SQ SCH (08:24)
[2019-09-04] MEDS: PANTOprazole 40 MG TAB PO SCH (08:24)
--- NOTE | 2019-09-04 10:46 | Gastroenterology Progress Note ---
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 She is having diarrhea. CT showed + moderate stool burden , stent is patent; CXR yesterday shows just gas throughout the colon. Diarrhea improved, she is no longer having any more abd pain - Neutropenic precautions - Electrolyte repletions per primary team. Make sure K level is >4. - Advanced to low fiber/residue diet (stent compatible diet) - DC abx - Protonix 40mg PO daily - Miralax 17g PO daily if stools get harder or if she feels she's not eliminating stools fully at home. - No contraindication for DC home from GI standpoint. Attg add: I interviewed and examined pt, reviewed chart and labs. Pt with improved diarrhea, no complaints. It is possible that her symptoms on presentation were secondary to constipation or transient occlusion of her colonic stent. OK for dc on low res diet. Admission and Anticipated Discharge Date Admission Date: August 30, 2019 Subjective Pt doing quite well, said diarrhea frequency slowed down. Denies abd pain, n/v. Tolerated solid meals this AM. She desires to go home. Review of Systems Review of Systems: All systems reviewed & are unremarkable except as noted in HPI & below Physical Exam Constitutional: + thin, well groomed, cooperative and comfortable Eyes: PERRL, conjunctivae normal, anicteric sclerae ENMT: external ear and nose normal, oropharynx normal Respiratory: normal respiratory effort, lungs clear to auscultation Cardiovascular: RRR, no murmur, no edema Gastrointestinal (Abdomen): Inspection/Auscultation: normal bowel sounds Percussion/Palpation: abdomen soft; abdomen nontender (RLQ) Skin: no rashes, warm and dry no jaundice Psychiatric: A+Ox3, euthymic affect Lymphatic: no lymphedema Results & Data ([facility]) Vital Signs (Past 12 Hours) Vital Signs Temp Pulse Resp BP BP Pulse Ox 09/04/19 07:00 36.6 C 81 20 137/70 99 09/04/19 04:01 36.4 C L 82 16 159/83 H 98 09/03/19 23:24 37.1 C 86 16 133/72 98
--- NOTE | 2019-09-04 15:08 | Discharge Summary ---
Date of Service September 04, 2019 Admission HPI Per Admitting Provider This is a 69-year-old female with past medical history significant for metastatic colon cancer to liver and lungs, currently on chemo, diagnosed about 1 year ago; history of hypothyroidism; mitral valve prolapse; PVCs; osteoporosis; severe protein-calorie malnutrition; presents with nausea, vomiting and abdominal pain. Since morning she had several episodes of nausea, vomiting. Initially it was whitish brown color but later having green vomitus.Also significant lower abdominal pain, 8/10 in severity, no radiation. She says she moved her bowels in the morning and she is not constipated and there is no blood in stools or black stools. No hematuria, no burning micturition. She lives with her . She is ambulating without any help. Before this episode, appetite is okay, but she has lost significant weight since she was diagnosed with colon cancer about a year ago. Denies any fever, chills. No chest pain, no shortness of breath. No headache, no blurred vision, no earache, no runny nose, no sore throat. No dysphagia, no odynophagia. Still having significant asking for pain medication. Nausea improved with antiemetics. Hemodynamically stable. CAT scan in the ER showed nonspecific colitis and also progressive hepatic metastasis. Admission Exam Per Admitting Provider GENERAL: The patient is thin and frail, not in acute distress. VITAL SIGNS: Temperature 36.4, pulse 80, respiratory rate 19, blood pressure 167/104, oxygen 96 room air. HEENT: No pallor, no icterus. Extraocular muscles intact. NECK: No JVD, no neck masses, no carotid bruits. CARDIOVASCULAR: S1, S2 heard. Regular rate and rhythm. No murmur, no gallop. RESPIRATORY SYSTEM: Normal AP diameter. No accessory muscle use. No wheezing, no crackles. ABDOMEN: Soft, bowel sounds present. Diffuse tenderness. Mild guarding. No rigidity. No rebound tenderness. CENTRAL NERVOUS SYSTEM: Cranial nerves II-XII grossly intact, nonfocal. EXTREMITIES: No edema, no erythema. Principal Diagnosis Abdominal pain, possibly secondary to constipation/transient occlusion of colonic stent Neutropenia Hypokalemia, hypophosphatemia Discharge Exam Physical Exam: Elderly female lying in bed in NAD Constitutional: elderly, + thin; no acute distress Eyes: PERRL, EOMI, conjunctivae normal, anicteric sclerae ENMT: external ear and nose normal, oropharynx normal Neck: trachea midline, no thyromegaly Respiratory: normal respiratory effort; no respiratory distress Auscultation: lungs clear to auscultation bilaterally, no wheezing, rhonchi, crackles Cardiovascular: Rate/Rhythm: regular rate and regular rhythm Heart Sounds: no murmur Gastrointestinal (Abdomen): Inspection/Auscultation: normal bowel sounds; abdomen not distended Percussion/Palpation: + abdomen nontender (much improved) and abdomen soft; no guarding Musculoskeletal: No acute arthritis involving any joints, moves extremities spontaneously Neurologic: alert and oriented, speech fluent, no facial asymmetry, moves all extremities Lymphatic: no cervical or axillary lymphadenopathy Discharge Data Allergies Allergy/AdvReac Type Severity Reaction Status Date / Time alendronate sodium Allergy Mild FLU LIKE Verified 08/30/19 18:05 SYMPTOMS Antifungal - Imidazole Allergy Mild SWELLING Verified 08/30/19 18:05 aspirin Allergy Mild COUGHING Verified 08/30/19 18:05 Sulfa (Sulfonamide AdvReac Mild NAUSEA Verified 08/30/19 18:05 Antibiotics) Consultations 08/30/19 19:29 ED Decision to Admit Stat 08/30/19 22:24 Consult Case Management - Discharge Planning Routine 08/31/19 08:00 Consult Gastroenterology Routine Ordered Studies 08/30/19 17:39 CT abd pelvis IV con only Stat IMPRESSION: 1. Debris-filled patent stent of the sigmoid colon. 2. Wall thickening of the cecum, ascending colon and hepatic flexure is suggest peace of a nonspecific colitis. 3. Trace abdominal pelvic ascites, likely reactive. 4. No bowel obstruction or pneumoperitoneum. 5. Moderate to extensive fecal retention. 6. Slightly increased size of several hepatic lesions suggestive of progressive hepatic metastasis. 7. 5 mm solid nodule the basal left lower lobe has slightly increased in size from comparison. Attention at follow-up recommended to exclude pulmonary metastasis. 8. Additional findings in full report. Hospital Course (1) Abdominal pain, acute: Admitted with generalized abdominal pain associated with distention and nausea History of metastatic colon cancer with status post colonic stent placed in March 2018 CT scan did not show any obstruction, but showed fecal retention and poss. colitis Pain is controlled with Ultram She has been moving her bowel Clinically much better today Tolerates low residue diet No more nausea and/or vomiting Abdominal pain is better and without any distention Seen by GI this AM - pain was likely d/t constipation and poss.transient occlusion of colonic stent - ok to d/c home on low residue diet and miralax (2) Colitis: CT scan of the abdomen pelvis did show colitis involving the cecum, ascending colon and hepatic flexure Not sure if the colitis is due to chemotherapy Received intravenous Zosyn and that was changed to intravenous Flagyl and Cipro C. difficile has been negative,stool culture is negative Appreciate GI input Clinically much better (3) Nausea & vomiting: As above No more vomiting or nausea Abdomen remains soft and only mildly tender Tolerates diet Electrolyte imbalance Noted to have hypokalemia and severe hypophosphatemia Likely secondary to bowel loss and poor intake Replaced - cont. to monitor as outpt as needed (4) Cancer: Has colon cancer with metastasis to liver and lungs Ongoing chemo Status post colonic stent placement in March of 2018 CT scan did not show any chronic obstruction but did show decrease in the stent No signs of obstruction Noted to be neutropenic likely secondary to chemo Will put her on neutropenic precautions Has severe malnutrition Secondary to colon cancer, anorexia and recent colitis Has been started to take regular food Noted to have increased lactic acid on admission Has been improving with intravenous fluid Hypothyroidism Continue replacement Total Time Total Time Spent Total Time Spent (In Minutes): 40 Total Time Includes: Examination of the Patient, Discharge Planning, Medication Reconciliation and Communication With Other Providers Discharge Plan Discharge Items Patient Disposition: Home - Self-Care Reason For Visit: ABDOMINAL PAIN,N/V Discharge Diagnosis: Abdominal pain, possibly secondary to constipation/transient occlusion of coloni c stent Neutropenia Hypokalemia, hypophosphatemia Activity: Resume your previous activity Activity Comment: as tolerated Non-emergency contact: Primary Care Provider, Supervisor [employer] and Oncologist Call non-emergency contact if: your symptoms worsen Follow-up/Referrals: Weston Still MD [Primary Care Provider] - (PATIENT WILL MAKE OWN APPOINTMENT) Diet: Low Fiber Diet Comment: Neutropenic diet Addtl Attending Provider Instructions: Follow neutropenic precautions, and neutropenic diet. Also make sure your diet is low residual/low fiber. Take potassium 20 mEq daily, and have your level checked, at your next PCP appointment. You should follow-up with your primary care doctor, in 1 week. Also start taking Protonix 40 mg daily. Use MiraLAX daily if your stools get harder or if you feel you are not eliminating stools fully at home. Pending Studies at Discharge: Yes Studies:: stool cltx Stand-Alone Forms: [facility], Smoking Cessation Medications and DC Order Prescriptions: New pantoprazole 40 mg Tablet,Delayed Release (Dr/Ec) 40 mg PO QAM 30 Days Qty: 30 RF: 0 polyethylene glycol 3350 [Miralax] 17 gram Powder In Packet 17 g PO DAILY PRN (Reason: constipation) 14 Days Qty: 14 RF: 0 Continued cholecalciferol (vitamin D3) [Vitamin D3] 1,000 unit Tablet 1,000 unit PO QDL RF: 0 levothyroxine 25 mcg Capsule 25 mcg PO QAM RF: 0 tramadol 50 mg Tablet 50 - 100 mg PO TID PRN (Reason: Abdominal Pain) RF: 0 ondansetron HCl [Zofran] 8 mg tablet 8 mg PO Q8H PRN (Reason: Nausea) RF: 0 prochlorperazine maleate 10 mg tablet 10 mg PO Q6H PRN (Reason: Nausea) RF: 0 hyoscyamine sulfate 0.375 mg tablet extended release 12 hr 0.375 mg PO Q12H PRN (Reason: Abdominal Cramping) RF: 0 calcium carbonate [Calcium 600] 600 mg calcium (1,500 mg) Tablet 600 mg PO BID RF: 0 Discharge Orders: Discharge Order (Routine); Ordered 09/04/19 Ordered By: Shaka Peacock Admission Data Admit Date/Time: 08/30/19 21:15 Attending Provider: Shaka Peacock Admit Provider: Leandro Gaston Primary Care Provider: Weston Still Other Providers: Leandro Gaston ; Tristan Flores ; Jenise Faria ; Mayo Cerda ; Ana Gill ; Vijay Odell ; Iwona Velasquez ; Maddy Branham ; Patricia Layton ; Mk Turcios ; Mehran Celeste ; Viki Scott ; Fina Maya ; Alina Dee ; Lesia Marshall ; Hosea Mazariegos ; Oxana Camarena Other Interventions: Discharge Summary Assessment (RN) Last Done: 09/04/19 15:19 DC Date/Time DO NOT enter until pt leaves facility: 09/04/19 16:22
--- NOTE | 2019-09-06 09:49 | Coding Query ---
CODING QUERY To promote full compliance with coding requirements relating to patient care, provider participation is requested in all cases of electrical controls engineer uncertainty. Please assist us with the question(s) below: Coding Question(s): Patient with CA colon, mets to lungs/liver admitted with abdominal pain. GI consult stated colitis due to antineoplastic RX. Discharge Summary states abdominal pain due to constipation and possible transient colonic stent migration. Seeking to clarify the principle reason for admission. Please check below the diagnosis, after study, to be responsible for this Inpatient stay. Thanks for your help! Ramana Medina [facility] Physician's Response(s): Per GI attending on 09/04/2019: Attg add: I interviewed and examined pt, reviewed chart and labs. Pt with improved diarrhea, no complaints. It is possible that her symptoms on presentation were secondary to constipation or transient occlusion of her colonic stent. OK for dc on low res diet. constipation obstruction of colonic stent Chemotherapy-induced Colitis Other/ Please document: Principal Diagnosis: "that condition established after study, to be chiefly responsible for occasioning the admission of the patient to the hospital for care." Co-Existing Principal Diagnosis: "when two or more diagnoses equally meet the criteria for principal diagnosis as determined by the circumstances of admission, diagnostic work up, and/or therapy provided, and the Alphabetic Index, Tabular List, or another coding guideline does not provide sequencing direction, any one of the diagnoses may be sequenced first." "When the physician has documented what appears to be a current diagnosis in the body of the record, but has not included the diagnosis in the final diagnostic statement, the physician should be asked whether the diagnosis should be added." (Source Coding Clinic 2 QTR90. p3-4) JUDYD
== END 2019-09-04 16:22 | disposition home or self-care (01) | DRG 919 ==
LOC: ED 15:52 → SUATTDRO 21:15 → 4W 21:15

== ENCOUNTER 2019-10-21 14:32 | Inpatient (IN) ==
[2019-10-21] MEDS ORDERED: MoRPHine SULFATE 2 MG/ML CARP IV STA ×2 (14:53→20:24)
[2019-10-21] MEDS ORDERED: SODIUM CHLORIDE 0.9% 1000ML 500 ML IV ONE (14:53)
[2019-10-21] MEDS ORDERED: PROCHLORPERAZINE 1 ML IV ONE (14:53)
--- NOTE | 2019-10-21 15:00 | Emergency Department Note ---
History of Present Illness General Chief complaint: Abdominal Pain Stated complaint: abd pain/weakness Time Seen by Provider: 10/21/19 14:37 Source: patient Mode of arrival: EMS Limitations: no limitations History of Present Illness Provider complaint: Abdominal pain, nausea and vomiting Onset (ago): week(s) 4 Location: abdomen Radiation: non-radiation Severity: moderate Pain Consistency: + colicky Maximum Pain Intensity: 8 Current Pain Intensity: 8 Quality: + constant Relieved By: + none Associated symptoms: + loss of appetite and + nausea/vomiting; no chest pain, no cough, no fever/chills, no shortness of breath and no weakness Treatments prior to arrival: other (Zofran by EMS) This is a 69-year-old female with stage IV colon cancer who sees Dr. Robert for oncology and received chemotherapy each week. Patient states after each chemo treatment she typically develops abdominal pain. She states she typically uses tramadol at home. Patient states she tried to take 2 of her usual tramadol and did not have any relief. She states the pain continued to worsen to the point of her becoming nauseated and subsequently vomiting. Patient denies fevers or chills. No change in any of her other usual medications. Denies any change in bowel or bladder function. Patient states she has had poor oral intake over the last several days due to the persistent pain. No abdominal distention. States the pain is all in her lower abdomen, has been constant. No radiation of pain. Pt seen during a time of high acuity and national emergency pandemic while wearing PPE. Home Medications Home Medications Medication Instructions Recorded Confirmed Type cholecalciferol (vitamin D3) 1,000 unit PO QDL 04/23/18 10/21/19 History [Vitamin D3] levothyroxine 25 mcg PO QAM 04/23/18 10/21/19 History tramadol 50 - 100 mg PO TID PRN 04/23/18 10/21/19 History hyoscyamine sulfate 0.375 mg PO Q12H PRN 08/30/19 10/21/19 History prochlorperazine maleate 10 mg PO Q6H PRN 08/30/19 10/21/19 History Allergies Allergy/AdvReac Type Severity Reaction Status Date / Time alendronate sodium Allergy Mild FLU LIKE Verified 10/21/19 15:57 SYMPTOMS Antifungal - Imidazole Allergy Mild SWELLING Verified 10/21/19 15:57 aspirin Allergy Mild COUGHING Verified 10/21/19 15:57 Sulfa (Sulfonamide AdvReac Mild NAUSEA Verified 10/21/19 15:57 Antibiotics) Past Med/Surg History Medical History Asthma no inhalers CKD (chronic kidney disease) stage 3, GFR 30-59 ml/min Colon cancer History of kidney stones (Inactive) Hx of renal calculi Hypothyroid Liver metastases Lung metastases MVP (mitral valve prolapse) MINOR Osteoporosis Pes cavus RT/LEFT FOOT Surgical History H/O colonoscopy last colonoscopy 03/14/18 had stent placed at tumor site History of tooth extraction History of vascular access device right chest wall History of wisdom tooth extraction Family History Sister Family history of diabetes mellitus Brother Family history of diabetes mellitus Other No family history of adverse response to anesthesia Social History Preferred Language: [place] Communication Ability: Effective Visual Impairment: No Limitations Hearing Ability: Normal Cable Television Technician Required: No Beliefs That Will Affect Care: None marital status: Current Living Situation: Spouse Other Information That Helps Us Care for You: No Feels Safe at Home: Yes Safety Concerns: Feels Safe At This Time Smoking Status: Never smoker Do You Dip or Chew Tobacco: No ; Second Hand Exposure: No ; Hx Alcohol Use: No Hx Substance Use: No Review of Systems See HPI for pertinent positives & negatives. and A total of 10 systems reviewed and were otherwise negative Physical Exam Vital Signs Vital Signs - 24 hr 10/21/19 14:39 10/21/19 15:46 10/21/19 16:45 Temperature 37.4 C Temperature Source Oral Pulse Rate 112 H Pulse Rate [Apical] 129 H 129 H Pulse Rhythm Regular Pulse Rhythm [Apical] Regular Pulse Strength Normal Pulse Strength [Apical] Normal Respiratory Rate 20 20 24 Respiratory Effort / Characteristics Non-Labored Spontaneous Non-Labored Spontaneous Non-Labored Spontaneous Respiratory Depth Normal Normal Normal Respiratory Pattern Regular Regular Regular Blood Pressure 128/62 Blood Pressure [Left Arm] 137/48 L 132/49 L Blood Pressure Mean 84 Blood Pressure Mean [Left Arm] 77 76 Blood Pressure Position [Left Arm] Sitting Sitting Pulse Oximetry 98 97 94 Oxygen Delivery Method Room Air Room Air Room Air Sepsis Recent Fever Within 48 Hours No Sepsis Action Taken by Nursing No Action Required 10/21/19 17:30 10/21/19 18:00 10/21/19 19:06 Temperature Temperature Source Pulse Rate Pulse Rate [Apical] 125 H 128 H 132 H Pulse Rhythm Pulse Rhythm [Apical] Regular Regular Regular Pulse Strength Pulse Strength [Apical] Normal Normal Normal Respiratory Rate 20 20 20 Respiratory Effort / Characteristics Non-Labored Spontaneous Non-Labored Spontaneous Non-Labored Spontaneous Respiratory Depth Normal Normal Normal Respiratory Pattern Regular Regular Regular Blood Pressure Blood Pressure [Left Arm] 154/65 H 144/54 H 144/66 H Blood Pressure Mean Blood Pressure Mean [Left Arm] 94 84 92 Blood Pressure Position [Left Arm] Sitting Sitting Sitting Pulse Oximetry 96 96 95 Oxygen Delivery Method Room Air Room Air Room Air Sepsis Recent Fever Within 48 Hours Sepsis Action Taken by Nursing GENERAL: alert, ill appearing, cachectic, no distress, non-toxic EYE EXAM: normal conjunctiva, PERRL and EOM's grossly intact OROPHARYNX: no exudate, no erythema, lips, buccal mucosa, and tongue normal and mucous membranes are moist NECK: supple, no nuchal rigidity, no adenopathy, non-tender LUNGS: Clear to auscultation. Normal chest wall mechanics, no w/r/r HEART: no murmurs, S1 normal and S2 normal, port noted right anterior superior chest wall ABDOMEN: abdomen soft, mild tenderness entire lower abdomen, no distention, normo-active bowel sounds, no masses, no rebound or guarding. BACK: Back is symmetrical on inspection and there is no deformity, no midline tenderness, no CVA tenderness. SKIN: no rashes and no bruising, no petechiae UPPER EXTREMITIES: upper extremities are grossly normal. FROM, nml pulses b/l. LOWER EXTREMITIES: No pitting edema. FROM, nml pulses b/l. NEURO EXAM: Normal sensorium, cranial nerves II-XII grossly intact, normal speec h, no gross weakness of arms, no gross weakness of legs. Gross sensation intact. Course Course 1649: Patient updated on results. Patient still tachycardic however stating pain is improved since morphine. States nausea is improved. States she did fall asleep so she has not tried ice chips yet. 2020: Pt states pain has returned. We discussed results. Pt uncomfortable going home due to worse pain compared to prior. 2024: Pt discussed with Dr. Marin. UA pending yet. Administered Medications Acetaminophen (Tylenol) 650 mg PO Q4H PRN PRN Reason: pain/fever Stop: 11/20/19 22:29 Last Admin: 10/23/19 04:37 Dose: 650 mg Documented by: [id number] Piperacillin Sod/Tazobactam (Sod 3.375 gm/ Dextrose) 115 mls @ 28.75 mls/hr IV Q8H SABINA; Protocol Stop: 11/01/19 03:59 Last Admin: 10/23/19 19:20 Dose: 28.8 mls/hr Documented by: [id number] Infusion: 10/23/19 17:30 Dose: 0 mls/hr Documented by: [id number] Admin: 10/23/19 13:39 Dose: 28.8 mls/hr Documented by: [id number] Infusion: 10/23/19 07:14 Dose: 0 mls/hr Documented by: [id number] Admin: 10/23/19 03:52 Dose: 28.8 mls/hr Documented by: [id number] Infusion: 10/22/19 23:27 Dose: 0 mls/hr Documented by: [id number] Admin: 10/22/19 19:45 Dose: 28.8 mls/hr Documented by: [id number] Infusion: 10/22/19 16:35 Dose: 0 mls/hr Documented by: [id number] Admin: 10/22/19 11:47 Dose: 28.8 mls/hr Documented by: [id number] Infusion: 10/22/19 09:05 Dose: 0 mls/hr Documented by: [id number] Admin: 10/22/19 03:47 Dose: 28.8 mls/hr Documented by: [id number] Sodium Chloride (Nss 1000ml) 1,000 mls @ 100 mls/hr IV .Q10H SABINA Stop: 11/22/19 20:59 Last Admin: 10/23/19 21:39 Dose: 100 mls/hr Documented by: [id number] Levothyroxine Sodium (Synthroid) 25 mcg PO DAILYBB SABINA Stop: 11/22/19 06:29 Last Admin: 10/23/19 05:31 Dose: 25 mcg Documented by: [id number] Linaclotide (Linzess) 288 mcg PO DAILY SABINA Stop: 11/21/19 12:59 Last Admin: 10/23/19 08:25 Dose: 288 mcg Documented by: [id number] Admin: 10/22/19 14:07 Dose: 288 mcg Documented by: [id number] Morphine Sulfate (Morphine Sulfate) 3 mg IV Q4H PRN PRN Reason: Pain Stop: 11/04/19 22:29 Last Admin: 10/23/19 09:55 Dose: 3 mg Documented by: [id number] Admin: 10/22/19 16:46 Dose: 3 mg Documented by: [id number] Admin: 10/22/19 09:03 Dose: 3 mg Documented by: [id number] Admin: 10/22/19 00:39 Dose: 3 mg Documented by: [id number] Ondansetron HCl (Zofran) 4 mg IV Q6H PRN PRN Reason: Nausea Stop: 11/20/19 22:29 Last Admin: 10/23/19 19:29 Dose: 4 mg Documented by: [id number] Admin: 10/22/19 06:44 Dose: 4 mg Documented by: [id number] Prochlorperazine (Compazine) 10 mg PO Q8H PRN PRN Reason: nausea Stop: 11/21/19 09:14 Last Admin: 10/23/19 09:55 Dose: 10 mg Documented by: [id number] Admin: 10/22/19 10:41 Dose: 10 mg Documented by: [id number] Discontinued Medications Bisacodyl (Dulcolax) 10 mg LA DAILY SABINA Stop: 11/21/19 10:14 Last Admin: 10/22/19 10:41 Dose: 10 mg Documented by: [id number] Sodium Chloride (Nss 1000ml) 500 mls @ 999 mls/hr IV .Q31M ONE Stop: 10/21/19 15:23 Last Infusion: 10/21/19 16:13 Dose: 0 mls/hr Documented by: [id number] Admin: 10/21/19 15:42 Dose: 999 mls/hr Documented by: [id number] Prochlorperazine (Compazine) 1 mls @ 1 mls/min IV ONE ONE Stop: 10/21/19 14:54 Last Admin: 10/21/19 15:42 Dose: 1 mls/min Documented by: [id number] Sodium Chloride (Nss) 500 mls @ 999 mls/hr IV .Q31M ONE Stop: 10/21/19 16:52 Last Infusion: 10/21/19 17:18 Dose: 0 mls/hr Documented by: [id number] Admin: 10/21/19 16:47 Dose: 999 mls/hr Documented by: [id number] Acetaminophen (Ofirmev) 65 mls @ 200 mls/hr IV NOW ONE; Protocol Stop: 10/21/19 18:16 Last Infusion: 10/21/19 21:10 Dose: 0 mls/hr Documented by: [id number] Admin: 10/21/19 20:47 Dose: 200 mls/hr Documented by: [id number] Sodium Chloride (Nss 1000ml) 1,000 mls @ 125 mls/hr IV .Q8H SABINA Stop: 11/20/19 20:29 Last Infusion: 10/21/19 22:48 Dose: 0 mls/hr Documented by: [id number] Admin: 10/21/19 20:51 Dose: 125 mls/hr Documented by: [id number] Sodium Chloride (Nss 1000ml) 1,000 mls @ 100 mls/hr IV .Q10H SABINA Stop: 11/20/19 22:29 Last Infusion: 10/23/19 01:24 Dose: 0 mls/hr Documented by: [id number] Admin: 10/22/19 19:49 Dose: 100 mls/hr Documented by: [id number] Infusion: 10/22/19 19:04 Dose: 100 mls/hr Documented by: [id number] Admin: 10/22/19 09:04 Dose: 100 mls/hr Documented by: [id number] Infusion: 10/22/19 08:47 Dose: 100 mls/hr Documented by: [id number] Admin: 10/21/19 22:47 Dose: 100 mls/hr Documented by: [id number] Piperacillin Sod/Tazobactam (Sod 3.375 gm/ Dextrose) 115 mls @ 230 mls/hr IV NOW ONE; Protocol Stop: 10/21/19 23:29 Last Infusion: 10/22/19 00:27 Dose: 0 mls/hr Documented by: [id number] Admin: 10/21/19 23:29 Dose: 230 mls/hr Documented by: [id number] Piperacillin Sod/Tazobactam (Sod 3.375 gm/ Dextrose) 115 mls @ 28.75 mls/hr IV Q8H [facility]; Protocol Stop: 10/31/19 03:59 Last Admin: 10/21/19 23:56 Dose: Not Given Documented by: [id number] Admin: 10/21/19 23:55 Dose: Not Given Documented by: [id number] Admin: 10/21/19 23:55 Dose: Not Given Documented by: [id number] Lactated Ringer's (Lr) 1,000 mls @ 500 mls/hr IV .Q2H ONE Stop: 10/23/19 03:00 Last Infusion: 10/23/19 03:32 Dose: 0 mls/hr Documented by: [id number] Admin: 10/23/19 01:28 Dose: 500 mls/hr Documented by: [id number] Lactated Ringer's (Lr) 1,000 mls @ 200 mls/hr IV .Q5H [facility] Stop: 11/22/19 03:14 Last Infusion: 10/23/19 05:30 Dose: 0 mls/hr Documented by: [id number] Admin: 10/23/19 03:31 Dose: 200 mls/hr Documented by: [id number] Metronidazole (Flagyl) 500 mg in 100 mls @ 100 mls/hr IV NOW ONE Stop: 10/23/19 03:59 Last Infusion: 10/23/19 04:48 Dose: 0 mls/hr Documented by: [id number] Admin: 10/23/19 03:52 Dose: 100 mls/hr Documented by: [id number] Lactated Ringer's (Lr) 1,000 mls @ 500 mls/hr IV .Q2H ONE Stop: 10/23/19 07:08 Last Infusion: 10/23/19 07:45 Dose: 0 mls/hr Documented by: [id number] Admin: 10/23/19 05:29 Dose: 500 mls/hr Documented by: [id number] Sodium Chloride (Nss) 500 mls @ 500 mls/hr IV .Q1H ONE Stop: 10/23/19 07:59 Last Infusion: 10/23/19 08:25 Dose: 0 mls/hr Documented by: [id number] Admin: 10/23/19 07:12 Dose: 500 mls/hr Documented by: [id number] Lactated Ringer's (Lr) 1,000 mls @ 200 mls/hr IV .Q5H [facility]ABINA Stop: 10/23/19 13:59 Last Admin: 10/23/19 13:42 Dose: Not Given Documented by: [id number] Infusion: 10/23/19 13:26 Dose: 200 mls/hr Documented by: [id number] Admin: 10/23/19 08:26 Dose: 200 mls/hr Documented by: [id number] Sodium Chloride (Nss) 500 mls @ 125 mls/hr IV .Q4H [facility]ABINA Stop: 10/23/19 20:29 Last Infusion: 10/23/19 20:18 Dose: 0 mls/hr Documented by: [id number] Admin: 10/23/19 16:41 Dose: 125 mls/hr Documented by: [id number] Lactated Ringer's (Lr) 1,000 mls @ 999 mls/hr IV .Q1H1M ONE Stop: 10/23/19 21:30 Last Infusion: 10/23/19 21:43 Dose: 0 mls/hr Documented by: [id number] Admin: 10/23/19 20:23 Dose: 999 mls/hr Documented by: [id number] Ioversol (Optiray 320 125ml) 118 ml IV ONCE PRN PRN Reason: Interaction Checking Stop: 10/25/19 18:56 Last Admin: 10/21/19 18:58 Dose: 1 ml Documented by: [id number] Miscellaneous (Stop Order) 1 ea N/A TODAY@1359 ONE Stop: 10/23/19 14:00 Last Admin: 10/23/19 14:38 Dose: 1 ea Documented by: [id number] Morphine Sulfate (Morphine Sulfate) 2 mg IV NOW STA Stop: 10/21/19 14:54 Last Admin: 10/21/19 15:42 Dose: 2 mg Documented by: [id number] Morphine Sulfate (Morphine Sulfate) 2 mg IV NOW STA Stop: 10/21/19 20:25 Last Admin: 10/21/19 21:56 Dose: 2 mg Documented by: [id number] Potassium Chloride (Klor-Con M20) 40 meq PO NOW ONE Stop: 10/23/19 01:16 Last Admin: 10/23/19 01:25 Dose: 40 meq Documented by: [id number] Potassium Chloride (Klor-Con M20) 40 meq PO NOW ONE Stop: 10/23/19 03:01 Last Admin: 10/23/19 03:33 Dose: 40 meq Documented by: [id number] Potassium Chloride (Klor-Con M20) 40 meq PO NOW ONE Stop: 10/23/19 07:01 Last Admin: 10/23/19 08:39 Dose: 40 meq Documented by: [id number] Sodium Bicarbonate (Sodium Bicarbonate 8.4%) 50 meq IV NOW STA Stop: 10/23/19 20:56 Last Admin: 10/23/19 21:39 Dose: 50 meq Documented by: [id number] Medical Decision Making Differential Diagnosis Differential diagnoses includes but is not limited to gastritis, peptic ulcer disease, GERD, gallbladder disease, pancreatitis, small bowel obstruction, acute coronary syndrome, pericarditis, ischemic bowel, irritable bowel disease, irritable bowel syndrome, appendicitis, diverticulitis, malignancy, hernia, urinary tract infection, torsion, [/ectopic (if female)], perforation, trauma, infectious. Medical Records Attestation: I reviewed the patient's medical records. Home Medications Current Medication List: was personally reviewed by me Laboratory Data Attestation: I reviewed the patient's lab results. Result diagrams: 10/23/19 19:58 10/23/19 19:58 Lab Results 10/21/19 10/21/19 10/21/19 Range/Units 15:21 15:21 15:21 WBC 2.06 L (4.8-10.8) K/uL RBC 3.49 L (4.2-5.4) M/uL Hgb 10.2 L (12.0-16.0) g/dL Hct 32.2 L (37-47) % MCV 92.3 (80-100) fL MCH 29.2 (25-34) pg MCHC 31.7 L (32-36) g/dL RDW Std Deviation 54.6 H (36.4-46.3) fL RDW Coeff of Michele 16.2 H (11.5-14.5) % Plt Count 305 (130-400) K/uL MPV 9.4 (7.4-10.4) fL Immature Gran % (Auto) 2.4 % Neut % (Auto) 71.4 % Lymph % (Auto) 15.5 % [place] % (Auto) 9.7 % Eos % (Auto) 0.5 % Baso % (Auto) 0.5 % Immature Gran # (Auto) 0.05 H (0.00-0.02) K/uL Neut # (Auto) 1.47 (1.4-6.5) K/uL Lymph # (Auto) 0.32 L (1.2-3.4) K/uL [place] # (Auto) 0.20 (0.11-0.59) K/uL Eos # (Auto) 0.01 (0-0.5) K/uL Baso # (Auto) 0.01 (0-0.2) K/uL Tear Drop Cells 1+ Sodium 137 (136-145) mmol/L Potassium 3.8 (3.5-5.1) mmol/L Chloride 108 H (98-107) mmol/L Carbon Dioxide 21 (21-32) mmol/L Anion Gap 8.0 (3-11) BUN 12 (7-18) mg/dl Creatinine 0.78 (0.6-1.2) mg/dl Est Cr Clr Drug Dosing 40.4 ml/min Est GFR ( Amer) 91.2 Est GFR (Non-Af Amer) 78.7 BUN/Creatinine Ratio 15.5 (10-20) Glucose 130 H (70-99) mg/dl Lactate 2.3 H* (0.4-2.0) mmol/L Calcium 8.5 (8.5-10.1) mg/dl Phosphorus 3.0 (2.5-4.9) mg/dl Magnesium 2.3 (1.8-2.4) mg/dl Total Bilirubin 0.9 (0.2-1) mg/dl AST 24 (15-37) U/L ALT 28 (12-78) U/L Alkaline Phosphatase 287 H (45-117) U/L Total Protein 6.4 (6.4-8.2) gm/dl Albumin 2.5 L (3.4-5.0) gm/dl Globulin 3.9 (2.5-4.0) gm/dl Albumin/Globulin Ratio 0.6 L (0.9-2) Lipase 86 (73-393) U/L 10/21/19 Range/Units 18:10 WBC (4.8-10.8) K/uL RBC (4.2-5.4) M/uL Hgb (12.0-16.0) g/dL Hct (37-47) % MCV (80-100) fL MCH (25-34) pg MCHC (32-36) g/dL RDW Std Deviation (36.4-46.3) fL RDW Coeff of Michele (11.5-14.5) % Plt Count (130-400) K/uL MPV (7.4-10.4) fL Immature Gran % (Auto) % Neut % (Auto) % Lymph % (Auto) % [place] % (Auto) % Eos % (Auto) % Baso % (Auto) % Immature Gran # (Auto) (0.00-0.02) K/uL Neut # (Auto) (1.4-6.5) K/uL Lymph # (Auto) (1.2-3.4) K/uL [place] # (Auto) (0.11-0.59) K/uL Eos # (Auto) (0-0.5) K/uL Baso # (Auto) (0-0.2) K/uL Tear Drop Cells Sodium (136-145) mmol/L Potassium (3.5-5.1) mmol/L Chloride (98-107) mmol/L Carbon Dioxide (21-32) mmol/L Anion Gap (3-11) BUN (7-18) mg/dl Creatinine (0.6-1.2) mg/dl Est Cr Clr Drug Dosing ml/min Est GFR ( Amer) Est GFR (Non-Af Amer) BUN/Creatinine Ratio (10-20) Glucose (70-99) mg/dl Lactate 3.4 H* (0.4-2.0) mmol/L Calcium (8.5-10.1) mg/dl Phosphorus (2.5-4.9) mg/dl Magnesium (1.8-2.4) mg/dl Total Bilirubin (0.2-1) mg/dl AST (15-37) U/L ALT (12-78) U/L Alkaline Phosphatase (45-117) U/L Total Protein (6.4-8.2) gm/dl Albumin (3.4-5.0) gm/dl Globulin (2.5-4.0) gm/dl Albumin/Globulin Ratio (0.9-2) Lipase (73-393) U/L Imaging Data Radiologist's Impression: XR abdomen 2V w PA chest CLINICAL HISTORY: abd pain, n/v COMPARISON STUDY: 09/03/2019 FINDINGS: No acute process of the chest. Chronic interstitial change left lung base improved from the prior exam. Central catheter in superior vena cava. Bowel pattern suggests a stent of the sigmoid. Moderate increase in fecal load throughout the colon consistent with a component of fecal stasis. There is no evidence for an obstructive pattern. IMPRESSION: 1. No acute process the chest. 2. Moderate increase in colonic fecal load. 3. No evidence for obstruction. ACT 112: Negative or not required by law. The above report was generated using voice recognition software. It may contain grammatical, syntax or spelling errors. Electronically signed by: Weston Carvajal M.D. 10/21/2019 6:23 PM Study: CT angiogram abdomen and pelvis HISTORY: Abdominal pain COMPARISON: 08/30/2019 FINDINGS: The arterial structures of the abdomen and pelvis demonstrate minimal scattered plaque formation. There is no significant stenotic process. The hepatic lesions previously described are unchanged and/or slightly progressive. There is increased colonic fecal load compared to the prior exam. There is a si gmoid stent which appears to be patent. It is fecal filled as well. Diameter of the colon medially proximal to the stent is slightly increased compared to the prior exam. No evidence for free air or pneumatosis. IMPRESSION: 1. Increased colonic fecal load proximal to the sigmoid stent. This is cons istent with fecal stasis 2. The stent is filled with fecal material and may be accentuating the amount of fecal material within the colon proximal to this site. 3. Slightly progressive hepatic metastatic disease compared to the prior study. 4. The CT angiogram is unremarkable. Electronically signed by: Weston Carvajal M.D. 10/21/2019 8:12 PM ECG Data Attestation: I personally reviewed and interpreted this ECG as follows: Indication: + abdominal pain Rate (beats per minute): 112 Rhythm: + sinus tachycardia ECG Intervals/blocks: + Normal QRS and + Normal QT ECG ST segments: + Normal ST segments Blood Pressure Blood Pressure Findings: Elevated blood pressure Blood Pressure Disposition: further management by hospitalist FARHAN Narrative Ill-appearing female with known metastatic colon cancer presents due to worsening abdominal pain since her last chemo treatment on of last week. The patient stated she typically has pain after chemo typically does not last this many days in her home regimen of tramadol and hyoscyamine did not provide any relief. Patient had pain to the point of vomiting. Patient denies any fevers or chills. No recent change in bowel or bladder function. Patient's labs revealed anemia and leukopenia, which were expected given her prior history and ongoing chemotherapy. Platelet count was normal. Patient's other labs reassuring. Patient initially had a very mildly elevated lactic acid at 2.3 which I thought perhaps was related to dehydration. Patient was monitored and hydrated while here and then a repeat lactic acid level was drawn. Unfortunately the level was elevated. Patient's initial x-rays suggested a component of constipation. After the second lactic acid came back elevated, patient sent for CT of the abdomen and pelvis as a precaution due to unclear etiology. No other acute findings noted on the CT. Is unclear if the elevated lactic acid is related to evolving infection, persistent dehydration, medications, or hepatic involvement of her cancer. Patient remained hemodynamically stable in the emergency room. Patient was given several rounds of pain medication through the IV as well as a dose of Compazine for her nausea and vomiting. Patient was uncomfortable attempting to manage this as an outpatient. We had a lengthy discussion regarding disposition due to her immunocompromise status and the current pandemic and her risk of infection. Case discussed with hospitalist for additional evaluation and management An order was placed for continuous cardiac monitoring. The monitor shows a rate of 80 with normal sinus rhythm. Impression & Plan Abdominal pain, acute, Lactic acidemia, Nausea & vomiting, Colon cancer, Tachycardia, Anemia, Leukopenia, Constipation Discharge Plan Visit Data *Final* Discharge Date/Time: 10/21/19 21:34 Chief Complaint: Abdominal Pain Stated Complaint: abd pain/weakness ED Provider: Cyndee Solomon Discharge Problem: Abdominal pain, acute, Lactic acidemia, Nausea & vomiting, Colon cancer, Tachycardia, Anemia, Leukopenia, Constipation Patient Disposition: Admitted As Inpatient Condition: Fair Discharge Instructions Interventions: ED Discharge Assessment Last Done: 10/21/19 21:34 Discharge Problem: Nausea & vomiting Qualifiers: Vomiting type: unspecified Vomiting Intractability: non-intractable Qualified Code(s): R11.2 - Nausea with vomiting, unspecified Colon cancer Qualifiers: Colon location: unspecified part of colon Qualified Code(s): C18.9 - Malignant neoplasm of colon, unspecified Anemia Qualifiers: Anemia type: other cause Other causes of anemia: antineoplastic chemotherapy Qualified Code(s): D64.81 - Anemia due to antineoplastic chemotherapy Leukopenia Qualifiers: Leukopenia type: unspecified Qualified Code(s): D72.819 - Decreased white blood cell count, unspecified Constipation Qualifiers: Constipation type: unspecified constipation type Qualified Code(s): K59.00 - Constipation, unspecified
[2019-10-21 15:35] LABS: Hematocrit (blood only) 32.2 % (37-47); Hemoglobin 10.2 g/dL (12.0-16.0); Mean Corpuscular Hemoglobin 29.2 pg (25-34); Mean Corpuscular Hgb Conc 31.7 g/dL (32-36); Mean Corpuscular Volume 92.3 fL (80-100); Mean Platelet Volume 9.4 fL (7.4-10.4); Platelet Count 305 K/uL (130-400); RDW Coefficient of Variation 16.2 % (11.5-14.5); RDW Standard Deviation 54.6 fL (36.4-46.3); Red Blood Count 3.49 M/uL (4.2-5.4); White Blood Count 2.06 K/uL (4.8-10.8)
[2019-10-21 15:53] LABS: Albumin Level 2.5 gm/dl (3.4-5.0); BUN Creatinine Ratio 15.5 (10-20); Calcium 8.5 mg/dl (8.5-10.1); Creatinine Clr Calc Pharmacy 40.4 ml/min; Est GFR (African American) 91.2; Est GFR (Non-African American) 78.7; Magnesium 2.3 mg/dl (1.8-2.4); Potassium 3.8 mmol/L (3.5-5.1)
[2019-10-21 15:56] LABS: Albumin Globulin Ratio 0.6 (0.9-2); Bilirubin,Total 0.9 mg/dl (0.2-1); Globulin 3.9 gm/dl (2.5-4.0); Total Protein 6.4 gm/dl (6.4-8.2)
[2019-10-21 15:58] LABS: Basophils # (auto) 0.01 K/uL (0-0.2); Basophils % (auto) 0.5 %; Eosinophils # (auto) 0.01 K/uL (0-0.5); Eosinophils % (auto) 0.5 %; Immature Granulocytes # (auto) 0.05 K/uL (0.00-0.02); Immature Granulocytes % (auto) 2.4 %; Lymphocytes # (auto) 0.32 K/uL (1.2-3.4); Lymphocytes % (auto) 15.5 %; Monocytes % (auto) 9.7 %; Neutrophils # (auto) 1.47 K/uL (1.4-6.5); Neutrophils % (auto) 71.4 %; Tear Drop Cells 1+
[2019-10-21] MEDS ORDERED: SODIUM CHLORIDE 0.9% 500 ML IV ONE (16:22)
--- NOTE | 2019-10-21 16:40 | Electrocardiogram Report ---
Test Reason : Blood Pressure : / mmHG Vent. Rate : 112 BPM Atrial Rate : 112 BPM P-R Int : 126 ms QRS Dur : 070 ms QT Int : 336 ms P-R-T Axes : 066 065 068 degrees QTc Int : 458 ms Poor data quality, interpretation may be adversely affected Sinus tachycardia Nonspecific T wave abnormality When compared with ECG of 30-AUG-2019 17:11, Premature ventricular complexes are no longer Present T wave amplitude has decreased in Lateral leads Confirmed by Levi Gaitan ([id number]) on 10/21/2019 4:39:28 PM Referred By: REFERRED SELF Confirmed By:Levi Gaitan
--- NOTE | 2019-10-21 18:25 | XRay Report ---
XR abdomen 2V w PA chest CLINICAL HISTORY: abd pain, n/v COMPARISON STUDY: 09/03/2019 FINDINGS: No acute process of the chest. Chronic interstitial change left lung base improved from the prior exam. Central catheter in superior vena cava. Bowel pattern suggests a stent of the sigmoid. Moderate increase in fecal load throughout the colon c onsistent with a component of fecal stasis. There is no evidence for an obstructive pattern. IMPRESSION: 1. No acute process the chest. 2. Moderate increase in colonic fecal load. 3. No evidence for obstruction. ACT 112: Negative or not required by law. The above report was generated using voice recognition software. It may contain grammatical, syntax or spelling errors. Electronically signed by: Weston Carvajal M.D. 10/21/2019 6:23 PM
[2019-10-21] MEDS ORDERED: OPTIRAY 320 125ml IV PRN (18:57)
[2019-10-21] MEDS: ACETAMINOPHEN 65 ML IV ONE ×2 (19:27→20:47)
--- NOTE | 2019-10-21 20:13 | CT Scan Report ---
Study: CT angiogram abdomen and pelvis HISTORY: Abdominal pain COMPARISON: 08/30/2019 FINDINGS: The arterial structures of the abdomen and pelvis demonstrate minimal scattered plaque form ation. There is no significant stenotic process. The hepatic lesions previously described are unchanged and/or slightly progressive. There is increased colonic fecal load compared to the prior exam. There is a sigmoid stent which appe ars to be patent. It is fecal filled as well. Diameter of the colon medially proximal to the stent is slightly increased compared to the prior exam. No evidence for free air or pneumatosis. IMPRESSION: 1. Increased colonic fecal load proximal to the sigmoid stent. This is consistent with fecal stasis 2. The stent is filled with fecal material and may be accentuating the amount of fecal material withi n the colon proximal to this site. 3. Slightly progressive hepatic metastatic disease compared to the prior study. 4. The CT angiogram is unremarkable. Electronically signed by: Weston Carvajal M.D. 10/21/2019 8:12 PM
[2019-10-21] MEDS ORDERED: SODIUM CHLORIDE 0.9% 1000ML 1,000 ML IV SCH (20:30)
--- NOTE | 2019-10-21 21:31 | History & Physical Report ---
Date of Service October 21, 2019 Assessment & Plan (1) Abdominal pain: (2) Elevated lactic acid level: -Admit to [facility] with telemetry -Patient presenting from home with reports of abdominal pain and nausea x 2 days -History of metastatic colon cancer, currently undergoing chemotherapy, last treatment on 10/17/2019 -History of large tumor burden on colon, s/p colonic stent -In the ED, patient is found to be tachycardic with elevated lactic acid level. CT angiogram ABD/pelvis showing fecal stasis, no signs of ischemia. -WBC 2K, afebrile -Lactic acid 2.3 -> 3.4. Continue IVF and trend lactic acid. -Suspect tachycardia is secondary to pain. Elevated lactic acid possibly secondary to underlying malignancy. Mild leukopenia likely due to recent chemotherapy. However will cover empirically with IV Zosyn. -Follow blood cultures. Check UA. -? If abdominal pain is secondary to transient colonic stent occlusion. No signs of obstruction on CT abd. -GI consult (3) Colon cancer: (4) Lung metastases: (5) Liver metastases: -Follows with Dr. Shay Robert -Currently receiving chemotherapy, last treatment of irinotecan on 10/17/19 (6) Hypothyroid: -Given tachycardia, will hold levothyroxine for now -Check TSH (7) Anemia: (8) Leukopenia: -WBC and Hgb at baseline, platelets WNL -likely secondary to chemotherapy -Monitor CBC (9) Severe protein-calorie malnutrition: -Dietitian evaluation (10) DVT prophylaxis: -SCDs due to anemia History of Present Illness Chief Complaint: Abdominal pain Primary Care Provider: Weston Still MD 69-year-old female who presents the ED for evaluation of abdominal pain. Patient with history of metastatic colon cancer to liver and lung, currently undergoing chemotherapy, last treatment on 10/16 with irinotecan. Patient reports her abdominal pain began 2 days ago. Reports pain is located in her lower abdomen. Pain is severe at times. She has had associated nausea however no vomiting. Reports normal bowel movement this morning. No fevers or chills. Denies chest pain shortness of breath. No lightheadedness, dizziness, diaphoresis, syncopal events. She denies any urinary symptoms. In the ED, patient was found to be tachycardic however afebrile. Labs show WBC 2K, lactic acid 2.3 -> 3.4. CT ABD/pelvis shows fecal stasis. Patient was given IV morphine, IV prochlorperazine, IVF, IV Tylenol. Allergies Allergy/AdvReac Type Severity Reaction Status Date / Time alendronate sodium Allergy Mild FLU LIKE Verified 10/21/19 15:57 SYMPTOMS Antifungal - Imidazole Allergy Mild SWELLING Verified 10/21/19 15:57 aspirin Allergy Mild COUGHING Verified 10/21/19 15:57 Sulfa (Sulfonamide AdvReac Mild NAUSEA Verified 10/21/19 15:57 Antibiotics) Home Medications Home Medications Medication Instructions Recorded Confirmed Type cholecalciferol (vitamin D3) 1,000 unit PO QDL 04/23/18 10/21/19 History [Vitamin D3] levothyroxine 25 mcg PO QAM 04/23/18 10/21/19 History tramadol 50 - 100 mg PO TID PRN 04/23/18 10/21/19 History hyoscyamine sulfate 0.375 mg PO Q12H PRN 08/30/19 10/21/19 History prochlorperazine maleate 10 mg PO Q6H PRN 08/30/19 10/21/19 History Past Med/Surg History Medical History Asthma no inhalers CKD (chronic kidney disease) stage 3, GFR 30-59 ml/min Colon cancer History of kidney stones (Inactive) Hx of renal calculi Hypothyroid Liver metastases Lung metastases MVP (mitral valve prolapse) MINOR Osteoporosis Pes cavus RT/LEFT FOOT Surgical History H/O colonoscopy last colonoscopy 03/14/18 had stent placed at tumor site History of tooth extraction History of vascular access device right chest wall History of wisdom tooth extraction Family History Sister Family history of diabetes mellitus Brother Family history of diabetes mellitus Other No family history of adverse response to anesthesia Social History Preferred Language: Citizen Of [place] Communication Ability: Effective Visual Impairment: No Limitations Hearing Ability: Normal Aquatics Specialist Required: No Beliefs That Will Affect Care: None marital status: Current Living Situation: Spouse Feels Safe at Home: Yes Smoking Status: Never smoker Second Hand Exposure: Yes ; Hx Alcohol Use: No Hx Substance Use: No Review of Systems Review of Systems: ROS per HPI, all other systems reviewed and negative Physical Exam Constitutional: + ill appearing (Chronically) and + thin; no acute distress Vitals as above Eyes: PERRL, conjunctivae normal, anicteric sclerae ENMT: external ear and nose normal, oropharynx normal Respiratory: normal respiratory effort, lungs clear to auscultation Cardiovascular: Rate/Rhythm: regular rhythm and + tachycardic Vessels: normal peripheral pulses Extremities: no edema Gastrointestinal (Abdomen): Inspection/Auscultation: abdomen not distended Percussion/Palpation: + abdomen tender (Generally tender however more pronounced in the lower abdomen) and abdomen soft; no hepatosplenomegaly Musculoskeletal: no cyanosis or clubbing, extremities motor strength 5/5 Skin: no rashes, warm and dry Neurologic: PERRL, EOMI, accommodation nl, no face palsy, no dysarthria Psychiatric: Orientation: alert and oriented x 3 Affect: + flat affect Results & Data Results & Data ([facility]) Vital Signs (Past 12 Hours) Vital Signs Temp Pulse Pulse Resp BP BP Pulse Ox 10/21/19 20:30 117 H 20 134/63 95 10/21/19 20:00 109 H 18 132/54 L 96 10/21/19 19:06 132 H 20 144/66 H 95 10/21/19 19:00 132 H 20 144/66 H 95 10/21/19 18:00 128 H 20 144/54 H 96 10/21/19 17:30 125 H 20 154/65 H 96 10/21/19 16:45 129 H 24 132/49 L 94 10/21/19 15:46 129 H 20 137/48 L 97 10/21/19 14:39 37.4 C 112 H 20 128/62 98 Laboratory Results Short CBC 10/21/19 10/21/19 10/21/19 Range/Units 15:21 15:21 18:10 WBC 2.06 L (4.8-10.8) K/uL Hgb 10.2 L (12.0-16.0) g/dL Hct 32.2 L (37-47) % Plt Count 305 (130-400) K/uL Lactate 2.3 H* 3.4 H* (0.4-2.0) mmol/L BMP 10/21/19 15:21 Sodium 137 Potassium 3.8 Chloride 108 H Carbon Dioxide 21 BUN 12 Creatinine 0.78 Glucose 130 H Calcium 8.5 Liver Function 10/21/19 Range/Units 15:21 Total Bilirubin 0.9 (0.2-1) mg/dl AST 24 (15-37) U/L ALT 28 (12-78) U/L Alkaline Phosphatase 287 H (45-117) U/L Albumin 2.5 L (3.4-5.0) gm/dl Diagnostic Findings CHEST/ABDOMEN X-RAY IMPRESSION: 1. No acute process the chest. 2. Moderate increase in colonic fecal load. 3. No evidence for obstruction. CTA ABD/PELVIS IMPRESSION: 1. Increased colonic fecal load proximal to the sigmoid stent. This is consistent with fecal stasis 2. The stent is filled with fecal material and may be accentuating the amount of fecal material within the colon proximal to this site. 3. Slightly progressive hepatic metastatic disease compared to the prior study. 4. The CT angiogram is unremarkable. Code Status & VTE Plan Code Status Patient is a DNR as per my discussion with her. VTE Prophylaxis Plan VTE Prophylaxis will be ordered: Yes Supervising Physician Co-Signing Physician Notes I, Dr. Vaughn Laguerre, have seen and examined the patient with the nurse practitioner and would like to comment on exam Physical Exam: General: speaking in full sentences Pulmonary: no crackles appreciated, on room air Cardiac: tachycardia Abdomen: soft, no rigidity, has bowel sounds Extremities/Neurological: moves all extremities and no focal neurological deficits Assessment and Plans Metastatic Cancer Generalized Abdominal Pain Tachycardia -as per review of outpatient notes of oncology Dr. 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 -presence of colonic stent placement performed by in 03/2018 -current chemotherapy is: Irinotecan weekly x2 followed by 1 week off and Avastin every 3 weekly started on 08/01/2019. Most recent dose on 10/17/2019 -patient reports that she typically has abdomen pain after chemotherapy but the pain symptoms are longer this cycle and she comes in with abdomen pain and tachycardia which is likely pain medicated - CT angiogram abdomen and pelvis There is increased colonic fecal load compared to the prior exam. There is a sigmoid stent which appears to be patent. It is fecal filled as well. Diameter of the colon medially proximal to the stent is slightly increased compared to the prior exam. No evidence for free air or pneumatosis. -will give IV fluids and pain medications Elevated Lactic Acid -admission lactic acid 2.3 to 3.2 -give IV fluids, CT angiogram results likely rules out ischemia -trend lactic acid -do not suspect sepsis from bacterial infection but given elevated lactic acid and tachycardia in a immunocompromised patient on chemotherapy, will be precautionary and start IV Zosyn and follow blood cultures Hypothyroidism -hold Levothyroxine for now to prevent exacerbation of tachycardia Severe Protein Calorie Malnutrition -BMI 14.3 -obtain system administration manager consult -agree with other assessment and plans for other medical issues as documented by nurse practitioner -Code Status is DNR/DNI as per my discussion with the patient My colleague Dr. Villanueva will by the hospitalist medicine consult starting on 10/22/2019
[2019-10-21] MEDS ORDERED: ACETAMINOPHEN 325 MG TAB PO PRN (22:30)
[2019-10-21] MEDS ORDERED: PIPERACILL/TAZOBAC CONSULT ACTIVE PRN (22:30)
[2019-10-21 22:32] LABS: Thyroid Stimulating Hormone 3.28 uIu/ml (0.300-4.500)
[2019-10-21] MEDS: SODIUM CHLORIDE 0.9% 1000ML 1,000 ML IV SCH (22:47)
[2019-10-21] MEDS ORDERED: PIPERACILLIN/TAZOBACTAM 3.375 GM in DEXTROSE 5% 100 ML IV ONE (23:00)
[2019-10-21] MEDS: PIPERACILLIN/TAZOBACTAM 3.375 GM in DEXTROSE 5% 100 ML IV SCH ×2 (23:55→23:56)
[2019-10-22] MEDS: MoRPHine SULFATE 4 MG/ML 1 ML CARP\\VIAL IV PRN ×3 (00:39→16:46)
[2019-10-22] MEDS ORDERED: HEPARIN 100 UNIT/ML 5ML FLUSH FLUSH PRN (01:39)
[2019-10-22] MEDS: PIPERACILLIN/TAZOBACTAM 3.375 GM in DEXTROSE 5% 100 ML IV SCH ×3 (03:47→19:45)
[2019-10-22] MEDS: ONDANSETRON INJ 2 MG/ML 2 ML VIAL IV PRN (06:44)
[2019-10-22] MEDS: SODIUM CHLORIDE 0.9% 1000ML 1,000 ML IV SCH ×2 (09:04→19:49)
--- NOTE | 2019-10-22 10:11 | Gastrointestinal Consultation ---
Date of Consultation October 22, 2019 Assessment & Plan (1) Colon cancer: (2) Lung metastases: (3) Liver metastases: (4) Constipation: Pt is a 69 y/o female w hx of rectosigmoid ca w lung/liver mets, s/p colonic stent placement 2018. She presented w abd pain, nausea w/o vomiting symptoms. Abd imaging showed increased fecal burden in colon w/o obstruction. She is passing flatus. She is not on daily bowel regimen and on narcotics at home, also not sure if she's truly compliant w the stent/low fiber diet. - OK for CL diet - Trial Linzess 290 mcg daily; Dulcolax 10mg ID supp daily - KUB tomorrow - Avoid narcotics if possible - Antiemetics prn nausea (currently she feels Compazine works for her better than Zofran) Supervising Physician Co-Signing Physician Notes I performed a history and physical examination of the patient today, including specifically on physical exam - soft abdomen. I have discussed the patient's management with the advanced practitioner. Please refer to the nurse practitioner's note for the documented findings and plan of care. Chronic opioid induced constipation. Recommend: Linzess or Amityza. If not working then Movantik as OP. Recall GI if needed. History of Present Illness Reason for Consultation: Abdominal pain, hx of colonic stent Requesting Physician: Dr. Myrna Villanueva Attending Physician: Dr. Hosea Mazariegos History of Present Illness Pt is a 69 y/o female w hx of rectosigmoid ca w liver and lung mets s/p colonic stent placement in 2018 who presented w c/o diffuse abd pain, nausea w.o vomiting x 2 days. Stools loose but small in amount. She is passing flatus. Abd imaging w Chest/abd xray, CTA abd/pelvis showed increased fecal load in colon, fecal stasis, stent in place in sigmoid colon. No obstruction noted. Pt not currently on daily bowel regimen. She would take Miralax on prn basis but states it makes her feel nauseated. She had been seeing county records management officer for low fiber/stent compatible diet. Unsure of compliance w diet adherence Allergies Allergy/AdvReac Type Severity Reaction Status Date / Time alendronate sodium Allergy Mild FLU LIKE Verified 10/21/19 15:57 SYMPTOMS Antifungal - Imidazole Allergy Mild SWELLING Verified 10/21/19 15:57 aspirin Allergy Mild COUGHING Verified 10/21/19 15:57 Sulfa (Sulfonamide AdvReac Mild NAUSEA Verified 10/21/19 15:57 Antibiotics) Home Medications Home Medications Medication Instructions Recorded Confirmed Type cholecalciferol (vitamin D3) 1,000 unit PO QDL 04/23/18 10/21/19 History [Vitamin D3] levothyroxine 25 mcg PO QAM 04/23/18 10/21/19 History tramadol 50 - 100 mg PO TID PRN 04/23/18 10/21/19 History hyoscyamine sulfate 0.375 mg PO Q12H PRN 08/30/19 10/21/19 History prochlorperazine maleate 10 mg PO Q6H PRN 08/30/19 10/21/19 History Patient History Medical History Asthma no inhalers CKD (chronic kidney disease) stage 3, GFR 30-59 ml/min Colon cancer History of kidney stones (Inactive) Hx of renal calculi Hypothyroid Liver metastases Lung metastases MVP (mitral valve prolapse) MINOR Osteoporosis Pes cavus RT/LEFT FOOT Surgical History H/O colonoscopy last colonoscopy 03/14/18 had stent placed at tumor site History of tooth extraction History of vascular access device right chest wall History of wisdom tooth extraction Family History Sister Family history of diabetes mellitus Brother Family history of diabetes mellitus Other No family history of adverse response to anesthesia Social History Preferred Language: [place] Communication Ability: Effective Visual Impairment: No Limitations Hearing Ability: Normal Tobacco Sample Puller Required: No Beliefs That Will Affect Care: None marital status: Current Living Situation: Spouse Other Information That Helps Us Care for You: No Feels Safe at Home: Yes Safety Concerns: Feels Safe At This Time Smoking Status: Never smoker Do You Dip or Chew Tobacco: No ; Second Hand Exposure: No ; Hx Alcohol Use: No Hx Substance Use: No Review of Systems Review of Systems: All systems reviewed & are unremarkable except as noted in HPI & below Physical Exam Constitutional: + thin, + frail appearing, well groomed and cooperative Eyes: PERRL, conjunctivae normal, anicteric sclerae ENMT: external ear and nose normal, oropharynx normal Respiratory: normal respiratory effort, lungs clear to auscultation Cardiovascular: RRR, no murmur, no edema Gastrointestinal (Abdomen): Inspection/Auscultation: + hypoactive bowel sounds Percussion/Palpation: + abdomen tender (diffuse) and abdomen soft Skin: no rashes, warm and dry no jaundice Psychiatric: A+Ox3, euthymic affect Lymphatic: no lymphedema Results & Data ([facility]) Vital Signs (Past 12 Hours) Vital Signs Temp Pulse Pulse Resp BP BP Pulse Ox 10/22/19 07:56 123 H 10/22/19 07:40 36.4 C L 114 H 18 107/66 99 10/22/19 04:18 36.8 C 111 H 24 105/43 L 97 10/22/19 01:17 110 H 10/21/19 22:37 112 H 10/21/19 22:17 36.9 C 113 H 20 109/72 97
[2019-10-22] MEDS ORDERED: bisacodyL 10 MG SUPP PR SCH (10:15)
[2019-10-22] MEDS: PROCHLORPERAZINE MALEATE 10 MG TAB PO PRN (10:41)
--- NOTE | 2019-10-22 11:28 | Hospitalist Progress Note ---
Date of Service October 22, 2019 Assessment & Plan (1) Abdominal pain: (2) Elevated lactic acid level: Patient presenting from home with reports of abdominal pain and nausea x 2 days History of metastatic colon cancer, currently undergoing chemotherapy, last treatment on 10/17/2019 CT abdomen showed increased colonic fecal load proximal to the sigmoid stent. This is consistent with fecal stasis The stent is filled with fecal material and may be accentuating the amount of fecal material within the colon proximal to this site. Lactic acid on admission 3.4, then normalized to 1.7 GI on board Starting on clear liquid diet Trial Linzess 72mcg daily; Dulcolax 10mg AR supp daily as per GI Will get a KUB tomorrow Will try to avoid narcotics if possible due to motility Continue antiemetics prn nausea Monitor electrolytes (3) Bacteremia: Blood cx positive for Gram negative bacilli Continue IV Zosyn Will repeat blood cx (4) Colon cancer: (5) Lung metastases: (6) Liver metastases: Follows with Dr. Shay Robert Currently receiving chemotherapy, last treatment of irinotecan on 10/17/19 Stable (7) Hypothyroid: TSH WNL Will resume Levothyroxine (8) Anemia: (9) Leukopenia: Possible related to Chemo WBC and Hgb at baseline, platelets WNL Stable (10) Severe protein-calorie malnutrition: Dietitian evaluation Will advise pt to increase protein intake (11) DVT prophylaxis: SCDs due to anemia Admission and Anticipated Discharge Date Admission Date: October 21, 2019 Subjective Pt was seen and examined Lying in bed with no distress Pt said that she continues to have abdominal She said that she feels weak Denies any chest pain, palpitation, Dizziness and SOB Physical Exam Physical Exam: General- No acute distress Head- atraumatic Eyes- PERRL, EOMI, ENT- oropharynx clear Neck- supple, no JVD Lungs- clear to auscultation Heart- +tachycardia Abdomen- normal bowel sounds, soft, +tender Extremities- no calf tenderness Neuro- alert, oriented x 3; PERRL, EOMI; no facial palsy; no dysarthria Skin- warm & dry Results & Data Results & Data ([facility]) Vital Signs (Past 12 Hours) Vital Signs Temp Pulse Pulse Resp BP BP Pulse Ox 10/22/19 07:56 123 H 10/22/19 07:40 36.4 C L 114 H 18 107/66 99 10/22/19 04:18 36.8 C 111 H 24 105/43 L 97 10/22/19 01:17 110 H
[2019-10-22] MEDS: LINACLOTIDE 72 MCG CAPSULE PO SCH (14:07)
[2019-10-23] MEDS ORDERED: LACTATED RINGER'S 1,000 ML IV ONE ×3 (01:01→20:30)
[2019-10-23] MEDS ORDERED: POTASSIUM CHLORIDE 20 MEQ TABCR PO ONE ×3 (01:15→07:00)
[2019-10-23 01:35] LABS: Hematocrit (blood only) 32.6 % (37-47); Hemoglobin 10.7 g/dL (12.0-16.0); Mean Corpuscular Hemoglobin 29.3 pg (25-34); Mean Corpuscular Hgb Conc 32.8 g/dL (32-36); Mean Corpuscular Volume 89.3 fL (80-100); Mean Platelet Volume 9.8 fL (7.4-10.4); Nucleated RBC # (auto) 0.02 K/uL (0-0); Nucleated RBC % (auto) 0.6 %; Platelet Count 439 K/uL (130-400); RDW Coefficient of Variation 16.3 % (11.5-14.5); RDW Standard Deviation 53.3 fL (36.4-46.3); Red Blood Count 3.65 M/uL (4.2-5.4); White Blood Count 4.47 K/uL (4.8-10.8)
[2019-10-23 01:56] LABS: BUN Creatinine Ratio 20.2 (10-20); Creatinine Clr Calc Pharmacy 36.8 ml/min; Est GFR (Non-African American) 69.9; Magnesium 2.7 mg/dl (1.8-2.4); Potassium 3.2 mmol/L (3.5-5.1)
[2019-10-23 02:02] LABS: Basophils # (auto) 0.04 K/uL (0-0.2); Basophils % (auto) 0.9 %; Dohle Bodies 2+; Echinocytes 1+; Eosinophils # (auto) 0.01 K/uL (0-0.5); Eosinophils % (auto) 0.2 %; Immature Granulocytes # (auto) 0.13 K/uL (0.00-0.02); Immature Granulocytes % (auto) 2.9 %; Lymphocytes # (auto) 0.68 K/uL (1.2-3.4); Lymphocytes % (auto) 15.2 %; Monocytes # (auto) 0.33 K/uL (0.11-0.59); Monocytes % (auto) 7.4 %; Neutrophils # (auto) 3.28 K/uL (1.4-6.5); Neutrophils % (auto) 73.4 %; Ovalocytes 1+; Tear Drop Cells Occasional; Toxic Granulation 3+; Toxic Vacuolation 1+
[2019-10-23] MEDS ORDERED: metroNIDAZOLE 500 MG/100 ML BAG IV ONE (03:00)
[2019-10-23] MEDS ORDERED: LACTATED RINGER'S 1,000 ML IV SCH ×2 (03:15→07:15)
[2019-10-23] MEDS: PIPERACILLIN/TAZOBACTAM 3.375 GM in DEXTROSE 5% 100 ML IV SCH ×3 (03:52→19:20)
[2019-10-23] MEDS ORDERED: LEVOTHYROXINE SODIUM 25 MCG TABLET PO SCH (06:30)
[2019-10-23 06:36] LABS: BUN Creatinine Ratio 25.2 (10-20); Calcium 7.7 mg/dl (8.5-10.1); Est GFR (African American) 104.9; Est GFR (Non-African American) 90.5; Potassium 3.3 mmol/L (3.5-5.1)
[2019-10-23] MEDS ORDERED: SODIUM CHLORIDE 0.9% 500 ML IV ONE (07:00)
[2019-10-23] MEDS: LINACLOTIDE 72 MCG CAPSULE PO SCH (08:25)
[2019-10-23] MEDS: LACTATED RINGER'S 1,000 ML IV SCH ×2 (08:26→13:42)
--- NOTE | 2019-10-23 09:46 | XRay Report ---
KUB HISTORY: Follow up study in a patient with history of colon cancer. 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 Development of moderate colonic distention measu ring up to 8.4 cm. Air-filled loops of small bowel are also noted. Moderate fecal retention. No trav l calculi. No ureteral calculi. No pneumoperitoneum or pneumatosis. No fracture. IMPRESSION: 1. Stent of the sigmoid colon redemonstrated which appears intact. 2. Interval development of gaseous colonic distention suggestive of colonic ileus versus developing d istal obstruction. Follow-up is needed. 3. Moderate fecal retention of the left hemicolon: ACT 112: Negative or not required by law. The above report was generated using voice recognition software. It may contain grammatical, syntax o r spelling errors. Electronically signed by: Marcelo Tolliver M.D. 10/23/2019 9:45 AM
[2019-10-23] MEDS: PROCHLORPERAZINE MALEATE 10 MG TAB PO PRN (09:55)
[2019-10-23] MEDS: MoRPHine SULFATE 4 MG/ML 1 ML CARP\\VIAL IV PRN (09:55)
[2019-10-23 12:12] LABS: BUN Creatinine Ratio 24.6 (10-20); Calcium 7.7 mg/dl (8.5-10.1); Est GFR (African American) 102.2; Est GFR (Non-African American) 88.1; Potassium 3.2 mmol/L (3.5-5.1)
--- NOTE | 2019-10-23 14:18 | Hospitalist Progress Note ---
Date of Service October 23, 2019 Assessment & Plan (1) Metastatic colon cancer in female: Metastasis to lung and liver and has been going on chemotherapy as of 10/17/2019 Presented with abdominal pain as below Her prognosis is guarded (2) Abdominal pain: Patient presenting from home with reports of abdominal pain and nausea x 2 days History of metastatic colon cancer, currently undergoing chemotherapy, last treatment on 10/17/2019 CT abdomen showed increased colonic fecal load proximal to the sigmoid stent. This is consistent with fecal stasis The stent is filled with fecal material and may be accentuating the amount of fecal material within the colon proximal to this site. Lactic acid on admission 3.4, then normalized to 1.7 GI on board -appreciate input put on recommendation Starting on clear liquid diet Trial Linzess 72mcg daily; Dulcolax 10mg DE supp daily as per GI Will get a KUB tomorrow Will try to avoid narcotics if possible due to motility Continue antiemetics prn nausea Laxatives as per GI recommendation We will ask for PT and OT evaluation (3) Elevated lactic acid level: (4) Bacteremia: Blood cx positive for Gram negative bacilli in 1 out of 2 bottles and awaiting further identification and sensitivity Continue IV Zosyn for now Will repeat blood cx -pending for the time being (5) Lung metastases: (6) Liver metastases: Follows with Dr. Shay Robert Currently receiving chemotherapy, last treatment of irinotecan on 10/17/19 Stable (7) Hypothyroid: TSH WNL Will resume Levothyroxine (8) Anemia: (9) Leukopenia: Possible related to Chemo WBC and Hgb at baseline, platelets WNL Stable (10) Severe protein-calorie malnutrition: Dietitian evaluation Will advise pt to increase protein intake (11) DVT prophylaxis: SCDs due to anemia Admission and Anticipated Discharge Date Admission Date: October 21, 2019 Subjective 10/23/2019 The patient was seen and examined in medical floor She has history of metastatic colon cancer with ongoing chemotherapy and status post colonic stent placement Admitted with increasing abdominal pain Remains generally weak and lethargic Complains to have nausea and abdominal discomfort/pain Review of Systems Review of Systems: All systems reviewed and are unremarkable except as noted below Constitutional: + fatigue, + malaise, + weakness, + anorexia and + weight loss Gastrointestinal: + abdominal pain, + bloating and + nausea; no vomiting Physical Exam Physical Exam: Lying in bed with acute distress due to abdominal discomfort Constitutional: + acute distress (Secondary to abdominal discomfort), + ill appearing and + thin Eyes: PERRL, conjunctivae normal, anicteric sclerae ENMT: external ear and nose normal, oropharynx normal Neck: trachea midline, no thyromegaly Respiratory: + respiratory distress (Moderately tachypneic at rest); no lab ored breathing Auscultation: lungs clear to auscultation bilaterally Cardiovascular: Rate/Rhythm: regular rate and regular rhythm Heart Sounds: no murmur Gastrointestinal (Abdomen): Inspection/Auscultation: + abdomen distended (Firm and tender) Percussion/Palpation: + abdomen tender and + abdomen rigid (Minimally received); no guarding Bowel sounds decreased Musculoskeletal: No acute arthritis in any joints Results & Data Results & Data ([facility]) Vital Signs (Past 12 Hours) Vital Signs Temp Pulse Pulse Resp BP Pulse Ox 10/23/19 11:37 36.3 C L 117 H 20 131/51 L 99 10/23/19 07:50 117 H 10/23/19 07:35 36.4 C L 110 H 20 136/77 98 10/23/19 04:29 37.3 C 116 H 20 126/62 98 Laboratory Results Short CBC 10/23/19 Range/Units 01:26 WBC 4.47 L (4.8-10.8) K/uL Hgb 10.7 L (12.0-16.0) g/dL Hct 32.6 L (37-47) % Plt Count 439 H (130-400) K/uL BMP 10/23/19 10/23/19 10/23/19 01:26 05:49 11:24 Sodium 133 L 132 L 134 L Potassium 3.2 L D 3.3 L 3.2 L Chloride 113 H 112 H 112 H Carbon Dioxide 16 L 18 L 16 L BUN 17 17 18 Creatinine 0.86 0.68 0.71 Glucose 159 H 163 H 171 H Calcium 8.0 L 7.7 L 7.7 L Medications Administered Current Inpatient Medications Acetaminophen (Tylenol) 650 mg PO Q4H PRN PRN Reason: pain/fever Stop: 11/20/19 22:29 Last Admin: 10/23/19 04:37 Dose: 650 mg Documented by: Heparin Sodium (Porcine) (Heparin Sod 100 Unit/Ml Flush) 5 ml FLUSH PRN PRN PRN Reason: Flush Stop: 11/21/19 01:44 Piperacillin Sod/Tazobactam (Sod 3.375 gm/ Dextrose) 115 mls @ 28.75 mls/hr IV Q8H [facility]; Protocol Stop: 11/01/19 03:59 Last Admin: 10/23/19 13:39 Dose: 28.8 mls/hr Documented by: Levothyroxine Sodium (Synthroid) [facility] Stop: 11/22/19 06:29 Last Admin: 10/23/19 05:31 Dose: 25 mcg Documented by: Linaclotide (Linzess) 288 mcg PO DAILY [facility] Stop: 11/21/19 12:59 Last Admin: 10/23/19 08:25 Dose: 288 mcg Documented by: Miscellaneous Information (Consult) 1 ea N/A UD PRN PRN Reason: Consult Stop: 11/20/19 22:29 Morphine Sulfate (Morphine Sulfate) 3 mg IV Q4H PRN PRN Reason: Pain Stop: 11/04/19 22:29 Last Admin: 10/23/19 09:55 Dose: 3 mg Documented by: Ondansetron HCl (Zofran) 4 mg IV Q6H PRN PRN Reason: Nausea Stop: 11/20/19 22:29 Last Admin: 10/22/19 06:44 Dose: 4 mg Documented by: Prochlorperazine (Compazine) 10 mg PO Q8H PRN PRN Reason: nausea Stop: 11/21/19 09:14 Last Admin: 10/23/19 09:55 Dose: 10 mg Documented by:
[2019-10-23] MEDS ORDERED: SODIUM CHLORIDE 0.9% 500 ML IV SCH (16:30)
[2019-10-23] MEDS: ONDANSETRON INJ 2 MG/ML 2 ML VIAL IV PRN (19:29)
--- NOTE | 2019-10-23 19:56 | XRay Report ---
XR chest 1V portable CLINICAL HISTORY: SOB dyspnea COMPARISON STUDY: 10/21/2019 FINDINGS: The lungs remain clear. Diaphragms are smooth. Central catheter remains in superior vena ca va. Pulmonary apices are clear. IMPRESSION: No acute process. No change from the prior exam. ACT 112: Negative or not required by law. The above report was generated using voice recognition software. It may contain grammatical, syntax or spelling errors. Electronically signed by: Weston Carvajal M.D. 10/23/2019 7:55 PM
[2019-10-23 20:09] LABS: Mean Platelet Volume 10.1 fL (7.4-10.4); Platelet Count 308 K/uL (130-400)
[2019-10-23 20:16] LABS: Allen Test Pos (Pos); Base Excess ABG -14.3 mEq/L (-9-1.8); HCO3 ABG 15 mmol/L (19-24); PCO2 ABG 48 mmHg (35-46); PO2 ABG 63 mmHg (80-95)
[2019-10-23 20:34] LABS: Albumin Level 1.3 gm/dl (3.4-5.0); BUN Creatinine Ratio 20.7 (10-20); Calcium 7.4 mg/dl (8.5-10.1); Creatinine Clr Calc Pharmacy 24.4 ml/min; Est GFR (African American) 48.7; Potassium 3.7 mmol/L (3.5-5.1)
[2019-10-23 20:51] LABS: Albumin Globulin Ratio 0.5 (0.9-2); Bilirubin,Total 0.7 mg/dl (0.2-1); Globulin 2.8 gm/dl (2.5-4.0); Total Protein 4.1 gm/dl (6.4-8.2); Troponin I 0.049 ng/ml (0-0.045)
--- NOTE | 2019-10-23 20:51 | Hospitalist Progress Note ---
Date of Service October 23, 2019 Assessment & Plan Admission and Anticipated Discharge Date Admission Date: October 21, 2019 Subjective Code purple was called as patient was hypoxic and became lethargic. Systolic Blood pressure dropped to 40's. Heart rate was in 100-110 range. Patientt was not responding to verbal or touch stimuli. Diminished breath sounds. Question of aspiration.Blood pressure improved with fluid bolus. Patient was placed on NRB mask. Patient is DNR/DNI. was called. He confirmed patient is DNR/DNI and wanted to keep patient comfortable. He was ok for Bipap trial. Abg showed Acidosis with PH 7.1, PCO2 48, PO2 63 85% on 15litres. came to hospital and currently at bed side. Plan to keep her comfortable and continue current treatment with fluids and abx. and continue bipap for now. Ordered a amp of sodium bicarb.CXR no change from previous. Results & Data Results & Data ([facility]) Vital Signs (Past 12 Hours) Vital Signs Temp Pulse Pulse Pulse Resp BP Pulse Ox 10/23/19 20:13 78 29 H 85 L 10/23/19 16:22 134 H 10/23/19 16:10 134 H 32 H 97 10/23/19 15:24 136/61 10/23/19 15:06 36.9 C 129 H 22 97 10/23/19 11:37 36.3 C L 117 H 20 131/51 L 99
[2019-10-23] MEDS ORDERED: SODIUM BICARB 8.4% INJ 50 MEQ/50 ML SYR IV STA (20:55)
[2019-10-23] MEDS ORDERED: SODIUM CHLORIDE 0.9% 1000ML 1,000 ML IV SCH (21:00)
[2019-10-23 21:17] LABS: Hematocrit (blood only) 28.8 % (37-47); Hemoglobin 9.1 g/dL (12.0-16.0); Mean Corpuscular Hemoglobin 29.2 pg (25-34); Mean Corpuscular Hgb Conc 31.6 g/dL (32-36); Mean Corpuscular Volume 92.3 fL (80-100); RDW Coefficient of Variation 16.6 % (11.5-14.5); RDW Standard Deviation 55.9 fL (36.4-46.3); Red Blood Count 3.12 M/uL (4.2-5.4); White Blood Count 2.18 K/uL (4.8-10.8)
[2019-10-23 21:18] LABS: Basophils # (auto) 0.01 K/uL (0-0.2); Basophils % (auto) 0.5 %; Echinocytes 2+; Eosinophils # (auto) 0.06 K/uL (0-0.5); Eosinophils % (auto) 2.8 %; Immature Granulocytes # (auto) 0.05 K/uL (0.00-0.02); Immature Granulocytes % (auto) 2.3 %; Lymphocytes # (auto) 0.95 K/uL (1.2-3.4); Lymphocytes % (auto) 43.6 %; Monocytes # (auto) 0.04 K/uL (0.11-0.59); Monocytes % (auto) 1.8 %; Neutrophils # (auto) 1.07 K/uL (1.4-6.5); Nucleated RBC # (auto) 0.22 K/uL (0-0); Nucleated RBC % (auto) 10.3 %
[2019-10-24] MEDS ORDERED: ONDANSETRON INJ 2 MG/ML 2 ML VIAL IV PRN (00:04)
[2019-10-24] MEDS ORDERED: ATROPINE SULFATE 1% OP SOLN 2 ML BTL SL PRN (00:04)
[2019-10-24] MEDS ORDERED: LORazepam 0.5 MG/1 ML VIAL IV PRN (00:04)
[2019-10-24] MEDS ORDERED: LORazepam 0.5 MG TAB PO PRN (00:04)
[2019-10-24] MEDS ORDERED: ONDANSETRON 4 MG OD TAB SL PRN (00:04)
--- NOTE | 2019-10-24 01:33 | Death Pronouncement Note ---
Date of Service October 24, 2019 Pronouncement Note Admission Date Admission Date: October 21, 2019 Date and Time of Date of : 10/24/19 Time of : 01:25 Contributing Factors (1) Metastatic colon cancer in female: (2) Abdominal pain: (3) Elevated lactic acid level: (4) Bacteremia: (5) Lung metastases: (6) Liver metastases: (7) Hypothyroid: (8) Anemia: (9) Leukopenia: (10) Severe protein-calorie malnutrition: (11) DVT prophylaxis: Additional Data Confirmation of : no pulse, no respirations, no heart sounds and pupils fixed and dilated Family: contacted Attending physician: Oxana Camarena MD Was code activated?: No Autopsy requested?: No appeals examiner notified?: No Organ bank notified?: No Advance directives: Yes
--- NOTE | 2019-10-24 16:36 | Hospitalist Progress Note ---
Date of Service October 23, 2019 Assessment & Plan Admission and Anticipated Discharge Date Admission Date: October 21, 2019 Results & Data Results & Data ([facility]) Vital Signs (Past 12 Hours) Vital Signs Temp Pulse Pulse Resp BP Pulse Ox 10/23/19 11:37 36.3 C L 117 H 20 131/51 L 99 10/23/19 07:50 117 H 10/23/19 07:35 36.4 C L 110 H 20 136/77 98 10/23/19 04:29 37.3 C 116 H 20 126/62 98
--- NOTE | 2019-10-24 16:40 | Discharge Summary ---
Date of Service October 24, 2019 Admission HPI Per Admitting Provider 69-year-old female who presents the ED for evaluation of abdominal pain. Patient with history of metastatic colon cancer to liver and lung, currently undergoing chemotherapy, last treatment on 10/16 with irinotecan. Patient reports her abdominal pain began 2 days ago. Reports pain is located in her lower abdomen. Pain is severe at times. She has had associated nausea however no vomiting. Reports normal bowel movement this morning. No fevers or chills. Denies chest pain shortness of breath. No lightheadedness, dizziness, diaphoresis, syncopal events. She denies any urinary symptoms. In the ED, patient was found to be tachycardic however afebrile. Labs show WBC 2K, lactic acid 2.3 -> 3.4. CT ABD/pelvis shows fecal stasis. Patient was given IV morphine, IV prochlorperazine, IVF, IV Tylenol. Admission Exam Per Admitting Provider Constitutional: + ill appearing (Chronically) and + thin; no acute distress Vitals as above Eyes: PERRL, conjunctivae normal, anicteric sclerae ENMT: external ear and nose normal, oropharynx normal Respiratory: normal respiratory effort, lungs clear to auscultation Cardiovascular: Rate/Rhythm: regular rhythm and + tachycardic Vessels: normal peripheral pulses Extremities: no edema Gastrointestinal (Abdomen): Inspection/Auscultation: abdomen not distended Percussion/Palpation: + abdomen tender (Generally tender however more pronounced in the lower abdomen) and abdomen soft; no hepatosplenomegaly Musculoskeletal: no cyanosis or clubbing, extremities motor strength 5/5 Skin: no rashes, warm and dry Neurologic: PERRL, EOMI, accommodation nl, no face palsy, no dysarthria Psychiatric: Orientation: alert and oriented x 3 Affect: + flat affect Principal Diagnosis Metastatic colon cancer Discharge Data Allergies Allergy/AdvReac Type Severity Reaction Status Date / Time alendronate sodium Allergy Mild FLU LIKE Verified 10/21/19 15:57 SYMPTOMS Antifungal - Imidazole Allergy Mild SWELLING Verified 10/21/19 15:57 aspirin Allergy Mild COUGHING Verified 10/21/19 15:57 Sulfa (Sulfonamide AdvReac Mild NAUSEA Verified 10/21/19 15:57 Antibiotics) Consultations 10/21/19 22:30 Consult Gastroenterology Routine 10/24/19 00:05 Consult Case Management - Discharge Planning Routine Consult Palliative Care Routine Ordered Studies 10/21/19 18:52 CT angio abdomen pelvis w con Stat 10/23/19 23:46 CT angio chest PE protocol Stat Hospital Course (1) Metastatic colon cancer in female: Metastasis to lung and liver and has been going on chemotherapy as of 10/17/2019 Presented with abdominal pain as below Her prognosis is guarded (2) Abdominal pain: Patient presenting from home with reports of abdominal pain and nausea x 2 days History of metastatic colon cancer, currently undergoing chemotherapy, last treatment on 10/17/2019 CT abdomen showed increased colonic fecal load proximal to the sigmoid stent. This is consistent with fecal stasis The stent is filled with fecal material and may be accentuating the amount of fecal material within the colon proximal to this site. Lactic acid on admission 3.4, then normalized to 1.7 GI on board -appreciate input put on recommendation Starting on clear liquid diet Trial Linzess 72mcg daily; Dulcolax 10mg TN supp daily as per GI Will get a KUB tomorrow Will try to avoid narcotics if possible due to motility Continue antiemetics prn nausea Laxatives as per GI recommendation We will ask for PT and OT evaluation (3) Elevated lactic acid level: Patient presenting from home with reports of abdominal pain and nausea x 2 days History of metastatic colon cancer, currently undergoing chemotherapy, last treatment on 10/17/2019 CT abdomen showed increased colonic fecal load proximal to the sigmoid stent. This is consistent with fecal stasis The stent is filled with fecal material and may be accentuating the amount of fecal material within the colon proximal to this site. Lactic acid on admission 3.4, then normalized to 1.7 GI on board Starting on clear liquid diet Trial Linzess 72mcg daily; Dulcolax 10mg TN supp daily as per GI Will get a KUB tomorrow Will try to avoid narcotics if possible due to motility Continue antiemetics prn nausea Monitor electrolytes (4) Bacteremia: Blood cx positive for Gram negative bacilli in 1 out of 2 bottles and awaiting further identification and sensitivity Continue IV Zosyn for now Will repeat blood cx -pending for the time being (5) Lung metastases: (6) Liver metastases: Follows with Dr. Shay Robert Currently receiving chemotherapy, last treatment of irinotecan on 10/17/19 Stable (7) Hypothyroid: TSH WNL Will resume Levothyroxine (8) Anemia: (9) Leukopenia: Possible related to Chemo WBC and Hgb at baseline, platelets WNL Stable (10) Severe protein-calorie malnutrition: Dietitian evaluation Will advise pt to increase protein intake (11) DVT prophylaxis: SCDs due to anemia Total Time Total Time Spent Total Time Spent (In Minutes): 20 minutes Total Time Includes: Other Discharge Plan Discharge Items Patient Disposition: Reason For Visit: ABDOMINAL PAIN Discharge Diagnosis: Metastatic colon cancer Condition on Discharge: Fair Follow-up/Referrals: Weston Still MD [Primary Care Provider] - Addtl Attending Provider Instructions: Admission Data Admit Date/Time: 10/21/19 21:05 Other DC Date/Time DO NOT enter until pt leaves facility: 10/24/19 01:25
--- NOTE | 2019-10-24 17:22 | Electrocardiogram Report ---
Test Reason : Blood Pressure : / mmHG Vent. Rate : 113 BPM Atrial Rate : 113 BPM P-R Int : 098 ms QRS Dur : 066 ms QT Int : 336 ms P-R-T Axes : 042 039 067 degrees QTc Int : 460 ms Sinus tachycardia with short LA with frequent Premature ventricular complexes Nonspecific T wave abnormality When compared with ECG of 21-OCT-2019 14:41, Premature ventricular complexes are now Present Confirmed by Levi Gaitan ([id number]) on 10/24/2019 5:22:04 PM Referred By: REFERRED SELF Confirmed By:Levi Gaitan
== END 2019-10-24 01:25 | disposition expired | DRG 391 ==
LOC: ED 14:32 → SUATTDRO 21:05 → 2W 21:05